=== PATIENT | female | born 1985 | race Caucasian/White ===

== ENCOUNTER 2021-10-28 03:39 | Emergency (ER) | payer OTHER, SELFPAY ==
--- NOTE | ~2021-10-28 | CT_ITS ---
EXAMINATION: CT HEAD WITHOUT CONTRAST CLINICAL INFORMATION: Possible new onset seizure COMPARISON: None TECHNIQUE: Contiguous axial imaging was performed from the skull base to vertex without intravenous administration of contrast. This CT examination was performed using dose optimization techniques as appropriate, variously including the following: *Automated exposure control *Adjustment of mA and/or kV according to patient size (this includes techniques or standardized protocols for targeted exams where dose is matched to indication/reason for exam; i.e. extremities or head) *Use of iterative reconstruction technique DLP: 703 mGy-cm FINDINGS: There is no evidence of acute intracranial hemorrhage or territorial infarction. No abnormal mass effect or midline shift is seen. Flores to white matter differentiation is well preserved. No extra-axial fluid collections are identified. The ventricles are normal in size. There is no abnormal attenuation within the brain parenchyma. The osseous structures and soft tissues are normal. There is a sinus disease in the bilateral maxillary maxillary and ethmoid sinuses sinuses. There is minimal soft tissue opacification in the inferior frontal sinuses/frontoethmoidal recess regions. There is some soft tissue opacification of the left inferior mastoid air cells. CT/CT head/brain wo con IMPRESSION: No acute intracranial pathology. Sinus disease. Minimal soft tissue opacification of the left inferior mastoid air cells.
--- NOTE | ~2021-10-28 | CT_ITS ---
EXAMINATION: CT ANGIOGRAM OF THE CHEST WITH AND WITHOUT CONTRAST (CT PULMONARY ANGIOGRAM FOR PE) CLINICAL INFORMATION: Reason for Exam multiple syncopal episodes COMPARISON: None TECHNIQUE: Prior to contrast administration, noncontrast localization images were obtained. Subsequently, multidetector volumetric imaging was performed from the thoracic inlet to below the diaphragms following the administration of 65 mL Omnipaque 350 intravenous contrast. No contrast reaction reported Sagittal, coronal, and MIP oblique sagittal reformatted images were obtained on the CT workstation, uploaded to PACS, and reviewed. This CT examination was performed using dose optimization techniques as appropriate, variously including the following: *Automated exposure control *Adjustment of mA and/or kV according to patient size (this includes techniques or standardized protocols for targeted exams where dose is matched to indication/reason for exam; i.e. extremities or head) *Use of iterative reconstruction technique Total exam dose-length product 316 mGy-cm FINDINGS: QUALITY OF STUDY/CONTRAST BOLUS: Satisfactory. PULMONARY ARTERIES: No central or segmental pulmonary emboli. THORACIC AORTA: No aneurysm or dissection. LUNG: No focal consolidation, nodules or masses. PLEURA: No pleural effusion or pneumothorax. MEDIASTINUM: Normal heart size. No pericardial effusion. No hilar or mediastinal lymphadenopathy. No evidence of septal bowing or right heart strain. CHEST WALL/AXILLA: No axillary or internal mammary lymphadenopathy. OSSEOUS STRUCTURES: No acute or suspicious osseous abnormality. UPPER ABDOMEN: The spleen may be enlarged. No reflux of contrast into the hepatic veins to suggest elevated right heart pressures. CT/CT angio chest PE protocol IMPRESSION: No evidence of pulmonary embolism. Question splenomegaly. VTE: negative
[2021-10-28 03:51] VITALS: BP 132/56; PULSE 84; RESP 20; TEMP 37.2; O2SAT 96; BMI 39.3
[2021-10-28 04:39] VITALS: PULSE 77; RESP 20; O2SAT 95
--- NOTE | 2021-10-28 05:58 | ECG_ITS ---
Test Reason : SYNCOPE Blood Pressure : / mmHG Vent. Rate : 081 BPM Atrial Rate : 081 BPM P-R Int : 150 ms QRS Dur : 082 ms QT Int : 396 ms P-R-T Axes : 024 067 039 degrees QTc Int : 460 ms Normal sinus rhythm Possible Anterior infarct , age undetermined Abnormal ECG No previous ECGs available Referred By: Cherry Sarmiento Electronically Signed By:ZA SKELTON MD
--- NOTE | 2021-10-28 06:04 | ED_ITS ---
HPI - General Adult General Chief complaint: Weakness Stated complaint: COVID +, passing out, incontinent Time Seen by Provider: 10/28/21 05:57 Source: patient Mode of arrival: ambulatory Limitations: no limitations History of Present Illness HPI narrative: Patient comes emergency room complaining of 5 days of COVID like symptoms. Patient states that 3 days ago she tested herself at home and I was positive. Patient complaining of fatigue, generalized malaise, fever and chills. Patient states that whenever she goes to sleep, sometimes she wakes up wet, she urinates on herself, which is new. Patient denies UTI symptoms. Patient states that her father told her that she passed out, however patient states that she did not pass out, she has went to sleep. Denies chest pain or shortness of breath. . Has been diagnosed with COVID 2 times. Patient states that she has not been immunized. Related Data Allergies Allergy/AdvReac Type Severity Reaction Status Date / Time amoxicillin [AMOXICILLIN] Allergy Unknown HIVES Unverified 01/31/20 15:41 fluoxetine [Prozac] AdvReac Unknown rash - not Verified 11/26/16 00:00 sure Review of Systems Review of Systems: Constitutional : No Weight loss, swelling of fever, chills, fatigue, generalized malaise ENT/Mouth : No Hearing loss, No Ear Pain, No Nasal Congestion, No Sinus Pain, No Hoarseness, No sore throat, No Rhinorrhea, No Swallowing Difficulty Eyes: No Eye Pain, No Swelling, No Redness, No Foreign Body, No Discharge, No Vision Changes Cardiovascular : No Chest Pain, No SOB, No Dyspnea on Exertion, No Orthopnea, No Edema, No Palpitations Respiratory : No Cough, No Sputum, No Wheezing, No Smoke Exposure, No Dyspnea Gastrointestinal : Complaining of nausea vomiting, No Diarrhea, No Consti pation, No abdominal Pain, No Hematochezia, No Melena Genitourinary : no irregular bleeding, No Dysuria, No Urinary Frequency, No Hematuria, No Urinary Incontinence, new onset urinary incontinence when patient goes to sleep/passes out, No Flank Pain, No Urinary Flow Changes, No Hesitancy Musculoskeletal : No joint pain, No Myalgias, No Joint Swelling Skin : No Skin Lesions, No rash Neuro : No Weakness, No Numbness, No Paresthesias, complaining of loss of consciousness versus falling asleep Psych : No Anxiety/Panic, No Depression, No SI/HI/AH/VH, No Social Issues, Heme/Lymph: No Bruising, No Bleeding,No Lymphadenopathy Endocrine : No Polyuria, No Polydipsia, No Temperature Intolerance [facility] Past Medical History Medical History (Updated 10/28/21 @ 07:03 by Cherry Sarmiento MD) COVID-19 Social History Social History Advance Directives: No Physical Exam ED Vital Signs: Vital Signs - 24 hr 10/28/21 03:51 10/28/21 04:39 10/28/21 06:29 Temperature 98.9 F Pulse Rate 84 77 71 Respiratory Rate 20 20 12 Blood Pressure 132/56 L 126/64 Pulse Oximetry 96 95 95 Oxygen Delivery Method Room Air Room Air Room Air BMI result Body Mass Index 39.3 Const Other: Appearance: Alert. Oriented X3. No acute distress. Eyes: Pupils equal, round and reactive to light. ENT: Pharynx normal. Neck: Normal inspection. Neck supple. No lymph nodes noted. No crepitus CVS: Normal heart rate and rhythm. Pulses normal. Normal S1 and S2 Respiratory: No respiratory distress. Breath sounds normal. No Wheezing. No rales Abdomen: Soft and nontender. No rigidity. No distention. Skin: Skin warm and dry. Flushed skin color. Normal skin turgor. Extremities: No lower extremity edema. No Lacerations. No Rash Neuro: Oriented X 3. No motor deficit. No sensory deficit. Moving all e xtremities. No slurred speech. CN 2 through 12 grossly intact Psych: calm, cooperative, normal affect Course Course Course Narrative: D-dimer is elevated, CT for pulmonary embolism is pending. Alcohol level is 154. Patient states that the last time that she drink any alcohol was 2-3 days ago. Initially, patient denied drinking any alcohol at all. Fifty scan for PE pending. Troponin, BNP, EKG within normal limits. Patient's CPK and lactic acid are slightly elevated, it is possible the patient had a seizure? Sign out given to Dr. Veronica Medical Decision Making Lab Data Result diagrams: 10/28/21 06:22 10/28/21 06:22 Labs: Lab Results 10/28/21 10/28/21 10/28/21 Range/Units 06:22 06: 06:22 WBC 7.7 (4.8-10.8) X10*3/uL RBC 4.62 (4.20-5.50) X10*6/uL Hgb 14.0 (12.0-16.0) g/dl Hct 40.8 (37.0-47.0) % MCV 88.3 (80.0-98.0) fL MCH 30.3 (27.0-33.0) pg MCHC 34.3 (31.0-35.0) g/dl RDW 12.9 (11.0-16.0) % Plt Count 227 (160-400) X10*3/uL MPV 9.2 L (9.4-12.3) fL Immature Gran % (Auto) 0.5 H (0.0-0.4) % Neut % (Auto) 66.1 (45-73) % Lymph % (Auto) 27.9 (20-40) % [place] % (Auto) 4.7 (2-11) % Eos % (Auto) 0.7 (0-4) % Baso % (Auto) 0.1 (0-2) % Lymph # (Auto) 2.1 (1.2-4.9) X10*3/uL [place] # (Auto) 0.4 (0.1-1.2) X10*3/uL Eos # (Auto) 0.1 (0.0-0.4) X10*3/uL Baso # (Auto) 0.0 (0.0-0.2) X10*3/uL Abs Immat Gran (auto) 0.04 H (0.00-0.03) X10*3/uL Absolute Neuts (auto) 5.1 (2.0-8.3) x10*3/uL Absolute Nucleated RBC 0.000 (0.0-0.012) X10*3/uL Nucleated RBC % (auto) 0.0 (0.0-0.2) /100WBC D-Dimer High Sensitivty 373 NG/ML Sodium 141 (135-145) mmol/L Potassium 3.8 (3.3-5.1) mmol/L Chloride 107 (96-108) mmol/L Carbon Dioxide 23 (22-29) mmol/L Anion Gap 15 (12-20) BUN 10 (9-16) mg/dL Creatinine 0.60 (0.5-1.4) mg/dL Estim Creat Clear Calc 144.0 Estimated GFR > 60 Random Glucose 79 (60-115) mg/dL Lactic Acid (0.5-2.0) mmol/L Calcium 8.2 L (8.4-10.2) mg/dL Magnesium 1.8 (1.6-2.6) mg/dL Total Bilirubin 0.3 (0.0-1.0) mg/dL Direct Bilirubin 0.2 (0.0-0.5) mg/dL AST 36 H (5-31) U/L ALT 31 (0-31) U/L Alkaline Phosphatase 83 (39-117) U/L Total Creatine Kinase 775 H (26-140) U/L Troponin I High Sens (<3.5-17.0) ng/L B-Natriuretic Peptide (<100) pg/mL Total Protein 6.8 (6.5-8.0) g/dL Albumin 3.9 (3.5-5.0) g/dL Ethyl Alcohol mg/dL COVID-19 (MAGGI) (Negative) COVID-19 Clin Com 10/28/21 10/28/21 10/28/21 Range/Units 06:22 06:22 06:22 WBC (4.8-10.8) X10*3/uL RBC (4.20-5.50) X10*6/uL Hgb (12.0-16.0) g/dl Hct (37.0-47.0) % MCV (80.0-98.0) fL MCH (27.0-33.0) pg MCHC (31.0-35.0) g/dl RDW (11.0-16.0) % Plt Count (160-400) X10*3/uL MPV (9.4-12.3) fL Immature Gran % (Auto) (0.0-0.4) % Neut % (Auto) (45-73) % Lymph % (Auto) (20-40) % [place] % (Auto) (2-11) % Eos % (Auto) (0-4) % Baso % (Auto) (0-2) % Lymph # (Auto) (1.2-4.9) X10*3/uL [place] # (Auto) (0.1-1.2) X10*3/uL Eos # (Auto) (0.0-0.4) X10*3/uL Baso # (Auto) (0.0-0.2) X10*3/uL Abs Immat Gran (auto) (0.00-0.03) X10*3/uL Absolute Neuts (auto) (2.0-8.3) x10*3/uL Absolute Nucleated RBC (0.0-0.012) X10*3/uL Nucleated RBC % (auto) (0.0-0.2) /100WBC D-Dimer High Sensitivty NG/ML Sodium (135-145) mmol/L Potassium (3.3-5.1) mmol/L Chloride (96-108) mmol/L Carbon Dioxide (22-29) mmol/L Anion Gap (12-20) BUN (9-16) mg/dL Creatinine (0.5-1.4) mg/dL Estim Creat Clear Calc Estimated GFR Random Glucose (60-115) mg/dL Lactic Acid 2.7 H* (0.5-2.0) mmol/L Calcium (8.4-10.2) mg/dL Magnesium (1.6-2.6) mg/dL Total Bilirubin (0.0-1.0) mg/dL Direct Bilirubin (0.0-0.5) mg/dL AST (5-31) U/L ALT (0-31) U/L Alkaline Phosphatase (39-117) U/L Total Creatine Kinase (26-140) U/L Troponin I High Sens 4.9 (<3.5-17.0) ng/L B-Natriuretic Peptide 22 (<100) pg/mL Total Protein (6.5-8.0) g/dL Albumin (3.5-5.0) g/dL Ethyl Alcohol mg/dL COVID-19 (MAGGI) Positive A (Negative) COVID-19 Clin Com See Note 10/28/21 Range/Units 06:22 WBC (4.8-10.8) X10*3/uL RBC (4.20-5.50) X10*6/uL Hgb (12.0-16.0) g/dl Hct (37.0-47.0) % MCV (80.0-98.0) fL MCH (27.0-33.0) pg MCHC (31.0-35.0) g/dl RDW (11.0-16.0) % Plt Count (160-400) X10*3/uL MPV (9.4-12.3) fL Immature Gran % (Auto) (0.0-0.4) % Neut % (Auto) (45-73) % Lymph % (Auto) (20-40) % [place] % (Auto) (2-11) % Eos % (Auto) (0-4) % Baso % (Auto) (0-2) % Lymph # (Auto) (1.2-4.9) X10*3/uL [place] # (Auto) (0.1-1.2) X10*3/uL Eos # (Auto) (0.0-0.4) X10*3/uL Baso # (Auto) (0.0-0.2) X10*3/uL Abs Immat Gran (auto) (0.00-0.03) X10*3/uL Absolute Neuts (auto) (2.0-8.3) x10*3/uL Absolute Nucleated RBC (0.0-0.012) X10*3/uL Nucleated RBC % (auto) (0.0-0.2) /100WBC D-Dimer High Sensitivty NG/ML Sodium (135-145) mmol/L Potassium (3.3-5.1) mmol/L Chloride (96-108) mmol/L Carbon Dioxide (22-29) mmol/L Anion Gap (12-20) BUN (9-16) mg/dL Creatinine (0.5-1.4) mg/dL Estim Creat Clear Calc Estimated GFR Random Glucose (60-115) mg/dL Lactic Acid (0.5-2.0) mmol/L Calcium (8.4-10.2) mg/dL Magnesium (1.6-2.6) mg/dL Total Bilirubin (0.0-1.0) mg/dL Direct Bilirubin (0.0-0.5) mg/dL AST (5-31) U/L ALT (0-31) U/L Alkaline Phosphatase (39-117) U/L Total Creatine Kinase (26-140) U/L Troponin I High Sens (<3.5-17.0) ng/L B-Natriuretic Peptide (<100) pg/mL Total Protein (6.5-8.0) g/dL Albumin (3.5-5.0) g/dL Ethyl Alcohol 154 mg/dL COVID-19 (MAGGI) (Negative) COVID-19 Clin Com Discharge Plan Discharge Clinical Impression: Syncope Patient Disposition: Still a Patient
[2021-10-28 06:29] VITALS: BP 126/64; PULSE 71; RESP 12; O2SAT 95
[2021-10-28 06:30] LABS: MANUAL DIFF FLAG NO
[2021-10-28 06:36] LABS: Basophils Percent Auto 0.1 % (0-2); Eosinophils Absolute Auto 0.1 X10*3/uL (0.0-0.4); Eosinophils Percent Auto 0.7 % (0-4); Hematocrit 40.8 % (37.0-47.0); Imm Gran Abs Auto 0.04 X10*3/uL (0.00-0.03); Imm Gran Pct Auto 0.5 % (0.0-0.4); Lymphocytes Absolute Auto 2.1 X10*3/uL (1.2-4.9); Lymphocytes Percent Auto 27.9 % (20-40); Mean Corpuscular HGB Conc 34.3 g/dl (31.0-35.0); Mean Corpuscular Hemoglobin 30.3 pg (27.0-33.0); Mean Corpuscular Volume 88.3 fL (80.0-98.0); Mean Platelet Volume 9.2 fL (9.4-12.3); Monocytes Absolute Auto 0.4 X10*3/uL (0.1-1.2); Monocytes Percent Auto 4.7 % (2-11); Neutrophils Absolute Auto 5.1 x10*3/uL (2.0-8.3); Neutrophils Percent Auto 66.1 % (45-73); Platelet Count 227 X10*3/uL (160-400); Red Blood Count 4.62 X10*6/uL (4.20-5.50); Red Cell Distribution Width 12.9 % (11.0-16.0); White Blood Count 7.7 X10*3/uL (4.8-10.8)
[2021-10-28 06:40] LABS: D Dimer High Sensitivity 373 NG/ML
[2021-10-28 06:42] LABS: COVID-19 Test Positive (Negative)
[2021-10-28 06:46] LABS: Lactic Acid 2.7 mmol/L (0.5-2.0)
[2021-10-28 06:50] LABS: Ethanol 154 mg/dL
[2021-10-28 06:51] LABS: B Type Natriuretic Peptide 22 pg/mL (<100); Troponin-I High Sensitivity 4.9 ng/L (<3.5-17.0)
[2021-10-28 06:53] LABS: Alanine Aminotransferase 31 U/L (0-31); Albumin Level 3.9 g/dL (3.5-5.0); Alkaline Phosphatase 83 U/L (39-117); Anion Gap 15 (12-20); Aspartate Amino Transferase 36 U/L (5-31); Bilirubin Direct 0.2 mg/dL (0.0-0.5); Bilirubin Total 0.3 mg/dL (0.0-1.0); Blood Urea Nitrogen 10 mg/dL (9-16); Calcium 8.2 mg/dL (8.4-10.2); Carbon Dioxide 23 mmol/L (22-29); Chloride 107 mmol/L (96-108); Estimated Glomerular Filt Rate > 60; Glucose Random 79 mg/dL (60-115); Magnesium 1.8 mg/dL (1.6-2.6); Potassium 3.8 mmol/L (3.3-5.1); Sodium 141 mmol/L (135-145); Total Protein 6.8 g/dL (6.5-8.0)
[2021-10-28 06:53] LABS: Appearance Urine CLEAR; Color Urine YELLOW; Glucose Urine UA NEG (NEG); Leukocyte Esterase Urine NEG (NEG); Nitrite Urine NEG (NEG); Urine Blood NEG (NEG); Urine Ketones NEG (NEG); Urine Protein NEG (NEG-TRACE)
[2021-10-28 07:08] LABS: Amphetamine Screen Urine Not Detected (Not Detect); Barbiturates, Urine Not Detected (Not Detect); Benzodiazepines Screen Urine Not Detected (Not Detect); Cannabinoid Screen Urine POSITIVE (Not Detect); Cocaine Screen Urine Not Detected (Not Detect); Fentanyl, urine Not Detected (Not Detect); Opiate Screen Urine Not Detected (Not Detect); Phencyclidine Screen Urine Not Detected (Not Detect)
[2021-10-28 07:40] VITALS: BP 122/74; PULSE 86; RESP 22; TEMP 37.2; O2SAT 98
[2021-10-28] MEDS: ondansetron HCL 4 MG/2 ML VIAL IVPUSH (07:42)
[2021-10-28] MEDS: 0.9 % Sodium Chloride 1,000 ML 999 ML IVCONT (07:42)
[2021-10-28 07:56] LABS: UPreg QC Valid YES; Urine Pregnancy NEGATIVE (NEGATIVE)
[2021-10-28 08:21] VITALS: BP 129/65; PULSE 83; RESP 22; TEMP 37.2
[2021-10-28 08:29] LABS: Reflex Lactate? Lactic Acid Added
[2021-10-28] MEDS: iohexoL 350 MG/ML 100 ML INFUS..BTL IV (09:12)
[2021-10-28 09:39] LABS: ~Lactic Acid-LAB USE ONLY 2.8 mmol/L (0.5-2.0)
[2021-10-28 11:12] LABS: Reflex Lactate? 2 Y
== END 2021-10-28 10:38 | disposition home or self-care (01) ==
PROVIDERS: Emergency Medicine; Emergency Provider Emergency Medicine
DX: R55 Syncope and collapse (principal); R79.1 Abnormal coagulation profile; R74.8 Abnormal levels of other serum enzymes; Z20.822 Contact with and (suspected) exposure to COVID-19
CPT/HCPCS: 36415; 70450; 71275; 80048; 80076; 80307; 81003; 81025; 82077; 82550; 83605; 83735; 83880; 84484; 85025; 85379; 87635; 93005; 96361; 96374; 99284; J2405; Q9967

== ENCOUNTER 2021-11-12 06:27 | Emergency (ER) | payer OTHER, SELFPAY ==
[2021-11-12 06:48] VITALS: BP 146/74; PULSE 115; RESP 16; TEMP 36.6; BMI 47.8
--- NOTE | 2021-11-12 06:56 | ED_ITS ---
HPI - Alcohol General Chief Complaint: General Medical Stated Complaint: ?Seeking detox Time Seen by Provider: 11/12/21 06:55 Source: patient Mode of arrival: ambulatory Limitations: no limitations History of Present Illness MD complaint: alcohol dependence (reports binge drinking episodes) Last drink: Days (ago) Chronic alcohol use: Yes Previous visits for alcohol intoxication: Yes Recent trauma: No Associated symptoms: denies other symptoms Treatments prior to arrival: none Related Data Previous Rx's Medication Instructions Recorded doxycycline hyclate 100 mg capsule 100 mg PO BID 7 days #14 caps 10/28/21 ondansetron 4 mg disintegrating 4 mg PO Q8H PRN nausea and 10/28/21 tablet vomiting #20 tabs Allergies Allergy/AdvReac Type Severity Reaction Status Date / Time amoxicillin [AMOXICILLIN] Allergy Unknown HIVES Unverified 01/31/20 15:41 fluoxetine [Prozac] AdvReac Unknown rash - not Verified 11/26/16 00:00 sure Review of Systems Review of Systems: Constitutional : No Fever, No Chills ENT/Mouth : No Ear Pain, No Nasal Congestion, No sore throat Eyes: No Eye Pain, No Swelling, No Redness Cardiovascular : No Chest Pain, No SOB Respiratory : No Cough, No Sputum, No Dyspnea Gastrointestinal : No Nausea, No Vomiting, No Diarrhea, No Hematochezia, No Melena Genitourinary : No Dysuria, No Urinary Frequency, No Hematuria Musculoskeletal : No Myalgias Skin : No Skin Lesions, No rash Neuro : No Weakness, No Numbness, No Paresthesias, No Dizziness, No Headache Psych : positive Anxiety, no Depression, no SI/HI Heme/Lymph: No Lymphadenopathy Endocrine : No Polyuria, No Polydipsia All other systems reviewed and are negative [facility] Past Medical History Attestation statement: The following information was validated with the patient. Medical History Alcohol abuse COVID-19 Social History Social History (Updated 11/12/21 @ 07:24 by Trish Veronica DO) Alcohol intake: current Patient Tobacco Use Status: Tobacco use Unknown Advance Directives: No Physical Exam ED Vital Signs: Vital Signs - 24 hr 11/12/21 06:48 Temperature 98 F Pulse Rate 115 H Respiratory Rate 16 Blood Pressure 146/74 H BMI result Body Mass Index 47.8 Appearance: Alert. Oriented X3. No acute distress. Anxious Eyes: Pupils equal, round and reactive to light. ENT: Pharynx normal. Neck: Normal inspection. Neck supple. CVS: Normal heart rate and rhythm. Pulses normal. Respiratory: No respiratory distress. Breath sounds normal. Abdomen: Soft and nontender. Skin: Skin warm and dry. Normal skin color. Normal skin turgor. Extremities: No lower extremity edema. No calf ttp Neuro: Oriented X 3. No motor deficit. No sensory deficit. Course Course Course Narrative: patient to be discharged to addicion medicine clinic now per Aracely PARADA MDM - Alcohol MDM Narrative Medical decision making narrative: 36 yo female with hx of ETOH abuse here with request to see someone help her get on medications so she can stop drinking. Will obtain labs and offer addiction medicine consult. She denies SI and cannot go to rehab at this time. Dispo per results and workup along with consult findings. Lab Data Result diagrams: 11/12/21 07:12 11/12/21 07:12 Labs: Lab Results 11/12/21 11/12/21 11/12/21 Range/Units 07:12 07:12 07:12 WBC 5.7 (4.8-10.8) X10*3/uL RBC 4.59 (4.20-5.50) X10*6/uL Hgb 14.0 (12.0-16.0) g/dl Hct 41.2 (37.0-47.0) % MCV 89.8 (80.0-98.0) fL MCH 30.5 (27.0-33.0) pg MCHC 34.0 (31.0-35.0) g/dl RDW 12.8 (11.0-16.0) % Plt Count 293 D (160-400) X10*3/uL MPV 9.4 (9.4-12.3) fL Immature Gran % (Auto) 0.4 (0.0-0.4) % Neut % (Auto) 71.4 (45-73) % Lymph % (Auto) 20.9 (20-40) % [place] % (Auto) 6.7 (2-11) % Eos % (Auto) 0.4 (0-4) % Baso % (Auto) 0.2 (0-2) % Lymph # (Auto) 1.2 (1.2-4.9) X10*3/uL [place] # (Auto) 0.4 (0.1-1.2) X10*3/uL Eos # (Auto) 0.0 (0.0-0.4) X10*3/uL Baso # (Auto) 0.0 (0.0-0.2) X10*3/uL Abs Immat Gran (auto) 0.02 (0.00-0.03) X10*3/uL Absolute Neuts (auto) 4.0 (2.0-8.3) x10*3/uL Absolute Nucleated RBC 0.000 (0.0-0.012) X10*3/uL Nucleated RBC % (auto) 0.0 (0.0-0.2) /100WBC Sodium 142 (135-145) mmol/L Potassium 4.4 (3.3-5.1) mmol/L Chloride 109 H (96-108) mmol/L Carbon Dioxide 27 (22-29) mmol/L Anion Gap 10 L (12-20) BUN 8 L (9-16) mg/dL Creatinine 0.65 (0.5-1.4) mg/dL Estim Creat Clear Calc 154.8 Estimated GFR > 60 Random Glucose 121 H (60-115) mg/dL Calcium 8.9 D (8.4-10.2) mg/dL Total Bilirubin 0.3 (0.0-1.0) mg/dL Direct Bilirubin < 0.2 (0.0-0.5) mg/dL AST 15 D (5-31) U/L ALT 24 (0-31) U/L Alkaline Phosphatase 79 (39-117) U/L Total Protein 7.3 (6.5-8.0) g/dL Albumin 4.5 (3.5-5.0) g/dL Beta HCG, Quant < 2 mIU/mL Ethyl Alcohol 47 mg/dL COVID-19 (MAGGI) Negative (Negative) COVID-19 Clin Com See Note Discharge Plan Discharge Clinical Impression: Alcohol abuse Patient Disposition: Home, Self-Care Instructions: Abuse of Alcohol (ED) Additional Instructions: return to ED for any worsening symptoms or concerns please go to the clinic now they are waiting for you Prescriptions: No Action doxycycline hyclate 100 mg capsule 100 mg PO BID 7 Days Qty: 14 0RF ondansetron 4 mg tablet,disintegrating 4 mg PO Q8H PRN (Reason: nausea and vomiting) Qty: 20 0RF
[2021-11-12 07:16] LABS: MANUAL DIFF FLAG NO
[2021-11-12 07:21] LABS: Basophils Percent Auto 0.2 % (0-2); Eosinophils Percent Auto 0.4 % (0-4); Hematocrit 41.2 % (37.0-47.0); Imm Gran Abs Auto 0.02 X10*3/uL (0.00-0.03); Imm Gran Pct Auto 0.4 % (0.0-0.4); Lymphocytes Absolute Auto 1.2 X10*3/uL (1.2-4.9); Lymphocytes Percent Auto 20.9 % (20-40); Mean Corpuscular Hemoglobin 30.5 pg (27.0-33.0); Mean Corpuscular Volume 89.8 fL (80.0-98.0); Mean Platelet Volume 9.4 fL (9.4-12.3); Monocytes Absolute Auto 0.4 X10*3/uL (0.1-1.2); Monocytes Percent Auto 6.7 % (2-11); Neutrophils Percent Auto 71.4 % (45-73); Platelet Count 293 X10*3/uL (160-400); Red Blood Count 4.59 X10*6/uL (4.20-5.50); Red Cell Distribution Width 12.8 % (11.0-16.0); White Blood Count 5.7 X10*3/uL (4.8-10.8)
[2021-11-12 07:39] LABS: COVID-19 Test Negative (Negative); IDNOW Serial# 16C4AD1C
[2021-11-12 07:40] LABS: Alanine Aminotransferase 24 U/L (0-31); Albumin Level 4.5 g/dL (3.5-5.0); Alkaline Phosphatase 79 U/L (39-117); Anion Gap 10 (12-20); Aspartate Amino Transferase 15 U/L (5-31); Bilirubin Direct < 0.2 mg/dL (0.0-0.5); Bilirubin Total 0.3 mg/dL (0.0-1.0); Blood Urea Nitrogen 8 mg/dL (9-16); Calcium 8.9 mg/dL (8.4-10.2); Carbon Dioxide 27 mmol/L (22-29); Chloride 109 mmol/L (96-108); Creatinine Clr Calc Pharmacy 154.8; Estimated Glomerular Filt Rate > 60; Ethanol 47 mg/dL; Glucose Random 121 mg/dL (60-115); Potassium 4.4 mmol/L (3.3-5.1); Sodium 142 mmol/L (135-145); Total Protein 7.3 g/dL (6.5-8.0)
[2021-11-12 07:46] LABS: HCG Quantitative < 2 mIU/mL
[2021-11-12 13:32] LABS: Fentanyl, urine Not Detected (Not Detect)
[2021-11-12 13:34] LABS: Amphetamine Screen Urine Not Detected (Not Detect); Barbiturates, Urine Not Detected (Not Detect); Cannabinoid Screen Urine POSITIVE (Not Detect); Cocaine Screen Urine Not Detected (Not Detect); Opiate Screen Urine Not Detected (Not Detect); Phencyclidine Screen Urine Not Detected (Not Detect)
--- NOTE | 2021-11-12 14:35 | MHC.RECOVRN ---
Late entry: 829-Met with pt in ED4 after pt requested discussion regarding medications for AUD, specifically Antabuse. Pt reports alcohol use, 2 bottles of wine once every week, last use last night. Prior to that, pt reports last drink was 11/02. Pt states I'm trying to go longer in between but I can't make it past 2 weeks. Pt denies past tx for AUD. Denies withdrawal symptoms when not drinking. Pt tearful, expressing symptoms of depression which leads to alcohol use. 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 Pt is currently in therapy and is in need of a prescriber. In regards to JANE, pt requests Antabuse due to It's in black and white. My will know if I drink. Pt educated regarding medications for AUD, including Antabuse, naltrexone, and acamprosate. After education, pt more interested in naltrexone. 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 Pt then found out she was (with 3rd of 4 children) and was admitted to [facility]. Pt has not used opiates nor had cravings since that time. Pt reports marijuana use, denies all other substances. Pt educated regarding recovery resources and supports, also provided with written information. Discussed the [facility] and pt would like to establish care with Chica Felton APRN. Discussed with ED provider as well as , pt will dc from ED and t/w will escort pt to [facility] to present as a walk in.
[2021-11-12 16:51] LABS: Benzodiazepines Screen Urine Not Detected (Not Detect)
== END 2021-11-12 08:28 | disposition home or self-care (01) ==
PROVIDERS: Emergency Provider Emergency Medicine
DX: F10.20 Alcohol dependence, uncomplicated (principal); Y90.2 Blood alcohol level of 40-59 mg/100 ml; F12.90 Cannabis use, unspecified, uncomplicated; F41.9 Anxiety disorder, unspecified; Z20.822 Contact with and (suspected) exposure to COVID-19
CPT/HCPCS: 80048; 80076; 80307; 82077; 84702; 85025; 87635; 99202; 99212; 99282; 99283

== ENCOUNTER → 2021-11-19 10:08 | Outpatient (BNVA) | payer OTHER, SELFPAY | PROVIDERS: Visit Provider Nurse Practitioner Psychiatric/Mental Health | DX: F10.20 Alcohol dependence, uncomplicated (principal); Z79.899 Other long term (current) drug therapy | CPT/HCPCS: 99212 ==

== ENCOUNTER → 2021-11-26 14:59 | Outpatient (BNVA) | payer OTHER, SELFPAY | PROVIDERS: PCP Internal Medicine; Visit Provider Nurse Practitioner Psychiatric/Mental Health | DX: F10.20 Alcohol dependence, uncomplicated (principal); Z79.899 Other long term (current) drug therapy | CPT/HCPCS: 80305; 99212 ==

== ENCOUNTER → 2021-12-24 10:15 | Outpatient (BNVA) | payer OTHER, SELFPAY | PROVIDERS: Visit Provider Nurse Practitioner Psychiatric/Mental Health | DX: F10.20 Alcohol dependence, uncomplicated (principal); F39 Unspecified mood [affective] disorder; Z51.81 Encounter for therapeutic drug level monitoring; Z79.899 Other long term (current) drug therapy | CPT/HCPCS: 80305; 81025; 96372; 99212 ==

== ENCOUNTER → 2022-01-06 09:40 | Outpatient (BNVA) | payer OTHER, SELFPAY | PROVIDERS: PCP Internal Medicine; Visit Provider Nurse Practitioner Psychiatric/Mental Health | DX: Z51.81 Encounter for therapeutic drug level monitoring (principal); F10.20 Alcohol dependence, uncomplicated; F39 Unspecified mood [affective] disorder | CPT/HCPCS: 80305; 99212 ==

== ENCOUNTER → 2022-01-21 10:09 | Outpatient (BNVA) | payer OTHER, SELFPAY | PROVIDERS: PCP Internal Medicine; Visit Provider Nurse Practitioner Psychiatric/Mental Health | DX: F10.20 Alcohol dependence, uncomplicated (principal); F39 Unspecified mood [affective] disorder; Z51.81 Encounter for therapeutic drug level monitoring; Z79.899 Other long term (current) drug therapy | CPT/HCPCS: 80305; 81025; 96372; 99212; J2315 ==

== ENCOUNTER → 2022-02-04 10:04 | Outpatient (BNVA) | payer OTHER, SELFPAY | PROVIDERS: PCP Internal Medicine; Visit Provider Nurse Practitioner Psychiatric/Mental Health | DX: Z51.81 Encounter for therapeutic drug level monitoring (principal); F10.20 Alcohol dependence, uncomplicated; F39 Unspecified mood [affective] disorder | CPT/HCPCS: 80305; 99212 ==

== ENCOUNTER → 2022-02-18 10:01 | Outpatient (BNVA) | payer OTHER, SELFPAY | PROVIDERS: PCP Internal Medicine; Visit Provider Nurse Practitioner Psychiatric/Mental Health | DX: F10.20 Alcohol dependence, uncomplicated (principal); F39 Unspecified mood [affective] disorder; Z79.899 Other long term (current) drug therapy; Z32.02 Encounter for pregnancy test, result negative | CPT/HCPCS: 80305; 81025; 96372; 99212 ==

== ENCOUNTER → 2022-03-29 10:33 | Outpatient (BNVA) | payer OTHER, SELFPAY | PROVIDERS: PCP Internal Medicine; Visit Provider Nurse Practitioner Psychiatric/Mental Health | DX: F10.20 Alcohol dependence, uncomplicated (principal) | CPT/HCPCS: 80305; 81025; 96372; 99212 ==

== ENCOUNTER → 2022-05-21 11:46 | Outpatient (BNVA) | payer OTHER, SELFPAY | PROVIDERS: Visit Provider Nurse Practitioner Psychiatric/Mental Health | DX: F10.20 Alcohol dependence, uncomplicated (principal) | CPT/HCPCS: 99212 ==

== ENCOUNTER → 2022-05-25 09:04 | Outpatient (BNVA) | payer OTHER, SELFPAY | PROVIDERS: PCP Internal Medicine; Visit Provider Nurse Practitioner Psychiatric/Mental Health | DX: F10.20 Alcohol dependence, uncomplicated (principal) | CPT/HCPCS: 99212 ==

== ENCOUNTER → 2022-06-02 09:37 | Outpatient (BNVA) | payer OTHER, SELFPAY | PROVIDERS: PCP Internal Medicine; Visit Provider Nurse Practitioner Psychiatric/Mental Health | DX: F10.20 Alcohol dependence, uncomplicated (principal) | CPT/HCPCS: 99212 ==

== ENCOUNTER → 2022-06-21 10:06 | Outpatient (BNVA) | payer OTHER, SELFPAY | PROVIDERS: PCP Internal Medicine; Visit Provider Nurse Practitioner Psychiatric/Mental Health | DX: F10.20 Alcohol dependence, uncomplicated (principal); F39 Unspecified mood [affective] disorder; Z79.899 Other long term (current) drug therapy | CPT/HCPCS: 80305; 99212 ==

== ENCOUNTER → 2022-07-29 10:59 | Outpatient (BNVA) | payer OTHER, SELFPAY | PROVIDERS: PCP Internal Medicine; Visit Provider Nurse Practitioner Psychiatric/Mental Health | DX: F10.20 Alcohol dependence, uncomplicated (principal); F39 Unspecified mood [affective] disorder | CPT/HCPCS: 80305; 81025; 96372; 99212 ==

== ENCOUNTER → 2022-08-27 10:09 | Outpatient (BNVA) | payer OTHER, SELFPAY | PROVIDERS: PCP Internal Medicine | DX: Z32.01 Encounter for pregnancy test, result positive (principal); F10.20 Alcohol dependence, uncomplicated; Z23 Encounter for immunization; Z51.81 Encounter for therapeutic drug level monitoring; Z79.899 Other long term (current) drug therapy; Z3A.00 Weeks of gestation of pregnancy not specified | CPT/HCPCS: 80305; 81025; 96372 ==

== ENCOUNTER → 2022-09-27 10:11 | Outpatient (BNVA) | payer OTHER, SELFPAY | PROVIDERS: PCP Internal Medicine; Visit Provider Nurse Practitioner Psychiatric/Mental Health | DX: Z51.81 Encounter for therapeutic drug level monitoring (principal); F10.20 Alcohol dependence, uncomplicated; Z32.02 Encounter for pregnancy test, result negative; Z79.899 Other long term (current) drug therapy | CPT/HCPCS: 80305; 81025; 96372; 99212 ==

== ENCOUNTER 2023-05-03 08:58 | Outpatient (AMB) | payer OTHER, SELFPAY ==
--- NOTE | 2023-05-03 10:09 | AM.OFFWIN_ITS ---
Intake Vital Signs 05/03/23 10:12 Height 5 ft 2 in Weight 246 lb 2 oz BMI 45.0 BP 122/70 Blood Pressure Location Lt brachial Position Sitting Pulse 104 H Pulse Source Pulse Oximeter Temp 97.4 F Temp Source Temporal Artery Scan Pulse Oximetry (%) 98 Oxygen Delivery Method Room Air Intake Visit Reasons: SET UP [employer]/sore throat and cough/[phone] Intake Note: Pt is here c/o sore throat and a bad cough for two weeks. Patient Tobacco Use Status: Tobacco use Unknown Allergies amoxicillin [AMOXICILLIN] Allergy (Unknown, Unverified 05/03/23 10:11) HIVES cephalexin [From Keflex] Allergy (Verified 05/03/23 10:11) Unknown risperidone [From Risperdal] Allergy (Verified 05/03/23 10:11) Unknown fluoxetine [Prozac] Adverse Reaction (Unknown, Verified 05/03/23 10:11) rash - not sure Do you need a note to return to daycare/school/sports/work: No HPI HPI Comments History of Present Illness Details This is a 38-year-old female with a past medical history of chronic bronchitis presenting from home for evaluation of a cough that she has had for the past 2 weeks and sore throat x1 day.. Patient is also reporting discomfort in her left ear. She denies having any fevers, chills, chest pain, shortness of breath or hemoptysis. Patient states all 4 of her children have been sick and they have had a single COVID exposure in the past 1 week. [facility] Medical History Alcohol abuse COVID-19 Social History (Updated 11/12/21 @ 07:24 by Adelina Veronica DO) Alcohol intake: current Patient Tobacco Use Status: Tobacco use Unknown Review of Systems Const All systems reviewed & are unremarkable except as noted in HPI and below Reports no additional complaints Eyes Reports no additional complaints ENT Reports as per HPI Card Reports as per HPI and Denies dyspnea Resp Reports as per HPI, Reports cough, Denies hemoptysis, Denies dyspnea and Denies wheezing Musc Reports no additional complaints Endo Reports no additional complaints Aller/Immun Denies wheezing Physical Exam Vital Signs: Last Vital Signs Temp 97.4 F 05/03/23 10:12 Pulse 104 H 05/03/23 10:12 BP 122/70 05/03/23 10:12 Pulse Ox 98 05/03/23 10:12 Oxygen Delivery Method Room Air 05/03/23 10:12 BMI result Body Mass Index 45.0 Const General: cooperative, healthy appearing, comfortable and no acute distress; No well developed Nutritional Appearance: well nourished Orientation/consciousness: patient oriented x3 Limitations: no limitations HEENT Head: Yes normal to inspection and Yes normocephalic Ears: hearing grossly normal bilaterally, external ears normal, right TM abnormal (erythematous, bulging), TM normal on the left and EAC's normal General nose exam: Normal external nose present Face and sinus: Yes normal facial exam and No sinus tenderness Mouth: Normal oral and palatal mucosa present and oropharynx normal Teeth and gingiva: dentition normal Throat: Yes posterior oropharynx normal (There is no erythema, edema or exudates of the posterior oropharynx) Eyes General: appearance normal, both eyes and all related structures Alignment and Position: alignment normal Periorbital: periorbital findings normal Eyelids: Yes eyelids normal Conjunctivae: conjunctivae normal Pupils: Equal, round and reactive pupils present EOM: EOMs intact bilaterally Neck Lymphatic: no lymphadenopathy noted Resp Effort & Inspection: normal respiratory effort, able to speak in complete sentences, no audible wheezes, Actively coughing and no respiratory distress Auscultation: clear to auscultation bilaterally Cardio Rate: regular rate Rhythm: regular rhythm Skin General skin exam: no rashes or lesions noted Neuro General: patient oriented x3 Cranial nerves: Yes Equal, round and reactive pupils present Psych Appearance: grossly normal Mental Status: mental status grossly normal Insight: Good insight present (Psych) Judgement: Good judgement present (Psych) Assessment & Plan Assessment & Plan (1) Otitis media of right ear: Code(s): H66.91 - Otitis media, unspecified, right ear Plan: Doxycycline BID x 7 days; ibuprofen or Tylenol as needed for discomfort. Plan SARS panel ordered and pending. Orders: Orders SARS-CoV2/FLU/RSV Today J06.9 - Acute upper respiratory infection, unspecified Medications: New doxycycline hyclate 100 mg PO BID 14 caps 0RF Coding Level of Care Code Est Pt Level 3 (36042) Diagnoses Otitis media of right ear H66.91 Time Spent (min) 25
[2023-05-03 10:12] VITALS: BP 122/70; PULSE 104; TEMP 36.3; O2SAT 98; BMI 45.0
== END 2023-05-03 10:50 | disposition home or self-care (01) ==
PROVIDERS: PCP Internal Medicine; Visit Provider Physician Assistant
DX: H66.91 Otitis media, unspecified, right ear (principal)
CPT/HCPCS: 99213

== ENCOUNTER 2023-05-03 13:54 | Outpatient (REF) | payer OTHER, SELFPAY ==
[2023-05-03 15:06] LABS: Influenza A PCR NEGATIVE (Negative); Influenza B PCR NEGATIVE (Negative); Resp Syncy Virus RNA Qual PCR NEGATIVE (Negative); SARS COV2 PCR INHOUSE NEGATIVE (Negative)
== END 2023-05-03 13:55 | disposition home or self-care (01) ==
LOC: HO.LNP 13:54
PROVIDERS: Visit Provider Physician Assistant
DX: J06.9 Acute upper respiratory infection, unspecified (principal); Z11.52 Encounter for screening for COVID-19
CPT/HCPCS: 0241U

== ENCOUNTER 2023-06-07 12:22 | Outpatient (AMB) | payer OTHER, SELFPAY ==
[2023-06-07 12:28] VITALS: BP 128/78; PULSE 91; TEMP 36.6; O2SAT 99
--- NOTE | 2023-06-07 12:28 | AM.OFFWIN_ITS ---
Intake Vital Signs 06/07/23 12:28 Height 5 ft 2 in BP 128/78 Blood Pressure Location Lt brachial Position Sitting Pulse 91 Pulse Source Pulse Oximeter Temp 97.8 F Temp Source Oral Pulse Oximetry (%) 99 Oxygen Delivery Method Room Air Intake Visit Reasons: EP day 2 103 fever body aches masked in lobby Intake Note: pt is here for c/o body aches, fever of 103 for 2 days Patient Tobacco Use Status: Never used Tobacco Allergies amoxicillin [AMOXICILLIN] Allergy (Unknown, Verified 06/07/23 12:28) HIVES cephalexin [From Keflex] Allergy (Verified 06/07/23 12:28) Unknown risperidone [From Risperdal] Allergy (Verified 06/07/23 12:28) Unknown fluoxetine [Prozac] Adverse Reaction (Unknown, Verified 06/07/23 12:28) rash - not sure Do you need a note to return to daycare/school/sports/work: Yes HPI HPI Comments History of Present Illness Details This is a 38-year-old female with a past medical history of chronic bronchitis presenting for evaluation of fevers and body aches that she has had since Tuesday which has been accompanied by nausea and diarrhea. Patient states she has had up to 3 episodes of diarrhea a day. Patient states that she went to the [place] [facility] [place] with 2 of her children this morning and 1 was diagnosed with influenza and other was diagnosed with COVID-19. At this time the patient states that she feels hot with body aches. She has been taking Tylenol and ibuprofen for management of her fevers which have been as high as 103?. Patient denies having any lightheadedness, headaches, ear pain, sore throat, difficulty swallowing, chest pain, dysuria or abdominal pain. COUNT INCLUDES [facility] Medical History Alcohol abuse COVID-19 Social History (Updated 11/12/21 @ 07:24 by Adelina Veroncia DO) Alcohol intake: current Patient Tobacco Use Status: Never used Tobacco Review of Systems Const All systems reviewed & are unremarkable except as noted in HPI and below Reports no additional complaints, Denies chills, Reports difficulty sleeping (secondary to cough), Reports fatigue, Reports fever(s) and Reports malaise Eyes Reports no additional complaints ENT Reports no additional complaints Card Reports no additional complaints GI Denies constipation, Reports diarrhea, Reports nausea and Denies vomiting Reports no additional complaints, Denies dysuria, Denies urinary incontinence, Denies urinary hesitancy and Denies urinary urgency Musc Reports no additional complaints Psych Reports no additional complaints Endo Reports fatigue Physical Exam Patient is afebrile Const General: cooperative, well developed, alert, awake, ill appearing (diaphoretic), tired appearing and well groomed Nutritional Appearance: average body habitus Orientation/consciousness: patient oriented x3 Limitations: no limitations HEENT Head: Yes normal to inspection and Yes normocephalic Ears: hearing grossly normal bilaterally, external ears normal, TM's normal bilaterally and EAC's normal General nose exam: Normal external nose present Face and sinus: Yes normal facial exam and Yes sinuses nontender Mouth: Normal oral and palatal mucosa present Throat: Yes postnasal drainage Eyes Eyelids: Yes eyelids normal Conjunctivae: conjunctivae normal Sclerae: sclerae normal Corneas: corneas normal Pupils: Equal, round and reactive pupils present EOM: EOMs intact bilaterally Neck Lymphatic: no lymphadenopathy noted Resp Effort & Inspection: normal respiratory effort, normal respiratory pattern, no audible wheezes, Actively coughing, no respiratory distress and not tachypneic Auscultation: clear to auscultation bilaterally Cardio Rate: regular rate Rhythm: regular rhythm GI Inspection: Yes normal to inspection Palpation (GI): Soft to palpation, nontender, no guarding, No hepatosplenomegaly present and No Rebound tenderness present Skin General skin exam: no rashes or lesions noted (Diaphoresis noted across forehead) Neuro General: patient oriented x3 Cranial nerves: Yes Equal, round and reactive pupils present Psych Appearance: grossly normal Mental Status: mental status grossly normal Insight: Good insight present (Psych) Judgement: Good judgement present (Psych) Assessment & Plan Assessment & Plan (1) Cough: Comment: Given this patient's exposure to both COVID-19 and influenza, SARS panel is ordered and pending. Code(s): R05.9 - Cough, unspecified Qualifiers: Cough type: acute Qualified Code(s): R05.1 - Acute cough Plan: Ibuprofen and Tylenol as needed for any fevers that may recur; Zofran as prescribed for nausea so that she may stay well hydrated upon returning home. Orders: Orders SARS-CoV2/FLU/RSV Today R05.9 - Cough, unspecified Medications: New ondansetron 4 mg PO Q8H PRN 12 tabs 0RF nausea and vomiting Coding Level of Care Code Est Pt Level 3 (28144) Diagnoses Acute cough R05.1 Cough type: acute Time Spent (min) 20
== END 2023-06-07 13:55 | disposition home or self-care (01) ==
PROVIDERS: PCP Internal Medicine; Visit Provider Physician Assistant
DX: R05.1 Acute cough (principal)
CPT/HCPCS: 99213

== ENCOUNTER 2023-06-07 13:56 | Outpatient (REF) | payer OTHER, SELFPAY ==
[2023-06-07 17:11] LABS: Influenza A PCR POSITIVE (Negative); Influenza B PCR NEGATIVE (Negative); Resp Syncy Virus RNA Qual PCR NEGATIVE (Negative); SARS COV2 PCR INHOUSE NEGATIVE (Negative)
== END 2023-06-07 13:57 | disposition home or self-care (01) ==
LOC: HO.LAB 13:56
PROVIDERS: Visit Provider Physician Assistant
DX: R05.9 Cough, unspecified (principal)
CPT/HCPCS: 0241U

== ENCOUNTER 2023-06-09 09:37 | Emergency (ER) | payer OTHER, SELFPAY ==
--- NOTE | ~2023-06-09 | CT_ITS ---
CT HEAD WITHOUT IV CONTRAST CT CERVICAL SPINE WITHOUT IV CONTRAST INDICATION: Head strike with neck pain. COMPARISON: Head CT 11/27/2021. TECHNIQUE: Multidetector CT acquisitions of the head and cervical spine were obtained without IV contrast. Multiplanar reformats were acquired and utilized for image interpretation. This CT examination was performed using dose optimization techniques as appropriate, variously including the following: *Automated exposure control *Adjustment of mA and/or kV according to patient size (this includes techniques or standardized protocols for targeted exams where dose is matched to indication/reason for exam; i.e. extremities or head) *Use of iterative reconstruction technique FINDINGS: HEAD: There is no intracranial hemorrhage, hydrocephalus, extra-axial surface collection, midline shift, or other herniation pattern. Flores to white matter differentiation is diffusely maintained without evidence of an evolved acute territorial infarct. The basilar cisterns are preserved. No significant soft tissue abnormality. No acute osseous abnormality. There is moderate mucosal thickening within the left maxillary sinus and there is mild mucosal thickening and small fluid level within the right maxillary sinus. There is moderate mucosal thickening within the ethmoid air cells bilaterally. Mastoid air cells are clear. CERVICAL SPINE: Straightening of the cervical lordosis. The vertebral body heights are maintained. There are no acute fractures and there are no acute subluxations. There is no prevertebral soft tissue swelling. Imaged upper lungs are clear. CT/CT head/brain wo IV con IMPRESSION: - No acute intracranial abnormality. - No acute osseous abnormality within the cervical spine. Straightening of the cervical lordosis.
--- NOTE | ~2023-06-09 | CT_ITS ---
CT HEAD WITHOUT IV CONTRAST CT CERVICAL SPINE WITHOUT IV CONTRAST INDICATION: Head strike with neck pain. COMPARISON: Head CT 11/27/2021. TECHNIQUE: Multidetector CT acquisitions of the head and cervical spine were obtained without IV contrast. Multiplanar reformats were acquired and utilized for image interpretation. This CT examination was performed using dose optimization techniques as appropriate, variously including the following: *Automated exposure control *Adjustment of mA and/or kV according to patient size (this includes techniques or standardized protocols for targeted exams where dose is matched to indication/reason for exam; i.e. extremities or head) *Use of iterative reconstruction technique FINDINGS: HEAD: There is no intracranial hemorrhage, hydrocephalus, extra-axial surface collection, midline shift, or other herniation pattern. Flores to white matter differentiation is diffusely maintained without evidence of an evolved acute territorial infarct. The basilar cisterns are preserved. No significant soft tissue abnormality. No acute osseous abnormality. There is moderate mucosal thickening within the left maxillary sinus and there is mild mucosal thickening and small fluid level within the right maxillary sinus. There is moderate mucosal thickening within the ethmoid air cells bilaterally. Mastoid air cells are clear. CERVICAL SPINE: Straightening of the cervical lordosis. The vertebral body heights are maintained. There are no acute fractures and there are no acute subluxations. There is no prevertebral soft tissue swelling. Imaged upper lungs are clear. CT/CT cervical spine wo IV con IMPRESSION: - No acute intracranial abnormality. - No acute osseous abnormality within the cervical spine. Straightening of the cervical lordosis.
[2023-06-09 09:48] VITALS: BP 147/90; PULSE 95; RESP 18; TEMP 37.1; O2SAT 95; BMI 45.7
--- NOTE | 2023-06-09 11:18 | ED_ITS ---
HPI - General Adult General Chief complaint: Fall Stated complaint: head inj fell on ice Time Seen by Provider: 06/09/23 11:00 Source: patient and family (father) Mode of arrival: ambulatory Limitations: no limitations History of Present Illness HPI narrative: Patient is a 38-year-old female presenting to the emergency department with complaint of headache and neck pain after a slip and fall yesterday. Patient r eports that she slipped on ice, landing on her back and hitting the back of her head. She is unsure if she lost consciousness but feel she did not. Has had headache since which she rates at 8/10. Took Tylenol and ibuprofen with little relief. Reports 3-4 episodes of vomiting this morning. Reports double vision immediately following the slip and fall but denies any double vision, blurred vision or other visual changes at this time. Patient did test positive for influenza on Tuesday. She is not anticoagulated. MD complaint: Head injury Onset (ago): hour(s) Location: head and neck Severity: severe Severity scale (1-10): 8 Quality: aching Pain Consistency: constant Relieving factors: none Exacerbating factors: movement Associated symptoms: nausea/vomiting Treatments prior to arrival: NSAID and other Related Data Previous Rx's Medication Instructions Recorded ondansetron 4 mg disintegrating 4 mg PO Q8H PRN nausea and 06/07/23 tablet vomiting #12 tabs ondansetron 4 mg disintegrating 4 mg PO Q8H PRN nausea and 06/09/23 tablet vomiting #12 tabs Allergies Allergy/AdvReac Type Severity Reaction Status Date / Time amoxicillin [AMOXICILLIN] Allergy Unknown HIVES Verified 06/09/23 09:54 cephalexin [From Keflex] Allergy Unknown Verified 06/09/23 09:54 risperidone [From Risperdal] Allergy Unknown Verified 06/09/23 09:54 fluoxetine [Prozac] AdvReac Unknown rash - not Verified 06/09/23 09:54 sure Review of Systems Review of Systems: As per HPI. Yes all other systems are reviewed and are negative Constitutional: Constitutional: Reports as per HPI [facility] Past Medical History Medical History Alcohol abuse COVID-19 Social History Social History (Updated 11/12/21 @ 07:24 by Adelina Veronica DO) Alcohol intake: current Patient Tobacco Use Status: Never used Tobacco Smoked in Last 30 Days: No Advance Directives: No Physical Exam ED Vital Signs: Vital Signs - 24 hr 06/09/23 09:48 06/09/23 12:00 06/09/23 14:21 Temperature 98.8 F 98.9 F Pulse Rate 95 93 95 Respiratory Rate 18 16 16 Blood Pressure 147/90 H 128/67 139/68 Pulse Oximetry 95 92 94 Oxygen Delivery Method Room Air Room Air Room Air BMI result Body Mass Index 45.7 Vital signs have been reviewed and appear to be correct. Blood pressure elevated. Heart rate normal. Respiratory rate normal. Temperature normal. Oxygen saturation normal. Const General: cooperative, healthy appearing and no acute distress Orientation/consciousness: oriented to person, oriented to place, oriented to time and patient oriented x3 Limitations: no limitations HENMT Head: Yes No palpable skull fracture present, Yes normocephalic, No abrasion, No Duron's sign, No contusion, No hematoma, No laceration, No raccoon eyes and No periorbital ecchymosis Ears: external ears normal, TM's normal bilaterally and EAC's normal General nose exam: Normal external nose present, Normal nasal mucous membranes and turbinates present and Normal septum present Face and sinus: Yes face symmetric Mouth: oropharynx normal and moist mucous membranes Throat: Yes uvula midline Eyes Pupils: Equal, round and reactive pupils present Neck Neck: Yes normal visual inspection and Yes supple Resp Effort & Inspection: normal respiratory effort and able to speak in complete sentences Auscultation: clear to auscultation bilaterally Cardio Rate: regular rate Rhythm: regular rhythm Heart sounds: S1 normal heart sound present and S2 normal heart sound present GI Palpation (GI): Soft to palpation and nontender Auscultation: normoactive bowel sounds General: Yes no CVA tenderness Back/Spine/Pelvis Back: no CVA tenderness Cervical Spine: normal cervical lordosis, cervical ROM normal, cervical muscular tenderness, pain with cervical ROM, No Cervical spine tenderness and No step off deformity Thoracic/Lumbar Spine: thoracic and lumbar spine normal to inspection, thoraco- lumbar ROM normal, straight leg raise negative bilaterally, No thoracic spinal tenderness and No lumbar spinal tenderness Pelvis: no pain with anterior-posterior compression and no pain with lateral compression Sacroiliac joints: bilaterally nontender Skin General skin exam: elasticity normal and turgor normal Neuro General: oriented to person, oriented to place, oriented to time, patient oriented x3, gait normal, tone normal, moves all extremities, Normal light touch and pain sensation, no focal motor deficits, CN's II-XI intact bilaterally and deep tendon reflexes 2+ bilaterally Cranial nerves: Yes Equal, round and reactive pupils present Cognition (Neuro): normal cognition Motor exam (neuro): 5/5 motor strength present throughout, Pronator motor function not present, Normal motor muscle tone present throughout and Motor ab normalities not present Sensory Exam: Normal double simultaneous stimulation for sensation Coordination: [id number] test normal and No Romberg test positive Extrem General: Yes full ROM, Yes no pedal edema and Yes no calf tenderness Psych Mental Status: mental status grossly normal Affect: normal affect Thought process: Normal thought process present NIH Stroke Scale Internal: Initial- Upon Arrival Time: 11:31 Level of Consciousness: Alert Level of Consciousness Questions: Answers both questions correctly Level of Consciousness Commands: Performs both tasks correctly Best Gaze: Normal Visual: No visual loss Facial Palsy: Normal Motor Arm (Right): No drift Motor Arm (Left): No drift Motor Leg (Right): No drift Motor Leg (Left): No drift Limb Ataxia: Absent Sensory: Normal Best Language: No aphasia Dysarthia: Normal Extinction and Inattention: No abnormality Score: 0 Medications Administered Discontinued Medications Generic Name Dose Route Start Last Admin Trade Name Freq PRN Reason Stop Dose Admin Diphenhydramine HCl 25 mg 06/09/23 15:13 06/09/23 15:33 Diphenhydramine Hcl 50 Mg/Ml Vial IVPUSH 06/09/23 15:14 25 mg ONCE ONE Administration Sodium Chloride 1,000 mls @ 999 mls/hr 06/09/23 15:15 06/09/23 15:33 Ns IV 06/09/23 16:15 999 mls/hr .Q1H1M EARLENE Administration Ketorolac Tromethamine 15 mg 06/09/23 15:13 06/09/23 15:34 Ketorolac Tromethamine 15 Mg/Ml Vial IVPUSH 06/09/23 15:14 15 mg ONCE ONE Administration Metoclopramide HCl 10 mg 06/09/23 15:13 06/09/23 15:33 Metoclopramide Hcl 10 Mg/2 Ml Vial IVPUSH 06/09/23 15:14 10 mg ONCE ONE Administration Ondansetron HCl 4 mg 06/09/23 11:26 06/09/23 11:55 Ondansetron Odt 4 Mg Tab.Joanie MORININGU 06/09/23 11:27 4 mg ONCE ONE Administration Oxycodone HCl 5 mg 06/09/23 11:26 06/09/23 11:55 Oxycodone Hcl Immed Release 5 Mg Tablet PO 06/09/23 11:27 5 mg ONCE ONE Administration Medical Decision Making Medical Decision Making [facility] Narrative: Patient is a 38-year-old female presenting to the emergency department with complaint of headache and neck pain after a slip and fall yesterday. On exam patient is awake, A+Ox3, BP elevated, VS otherwise WNL, afebrile, normal neurological exam without focal deficits, physical exam findings as above. Given reported symptoms and physical exam findings, initial differential includes ICH/SAH, skull fracture, cervical vertebral fracture or subluxation, cervical muscle strain, concussion. [place] CT head rule score of 1 for vomiting. Plan: CT head and neck, treat headache and nausea with oxycodone and ondansetron 15:10 CT head and neck unremarkable. My interpretation is in agreement with the radiologist's interpretation. Patient and father updated on results and all qu estions answered. Patient still complaining of severe headache, will treat with IV fluids, toradol, metoclopramide and benadryl. Feel patient's headache is likely exacerbated by her influenza. 16:49 Patient reports significant improvement in headache, states she is comfortable with discharge home. Will prescribe zofran for nausea. Concussion precautions reviewed with patient. Return precautions discussed with patient and father. Patient verbalized understanding of and agreement with plan. Differential Diagnosis Differential Diagnoses: The differential diagnosis associated with the presentation includes As per [facility] Lab Data [facility] Lab Attestation statement: I reviewed the patient's lab results. As per [facility] Labs: Lab Results 06/09/23 Range/Units 12:18 Urine Test NEGATIVE (NEGATIVE) Independent Interpretation I performed an independent interpretation of an: CT Scan Interpretation: No acute findings on head or c-spine CT. Radiology Impression Discussion of test interpretation with radiology: I have reviewed the radiologist's reading. Radiologist Impression: CT/CT head/brain wo IV con IMPRESSION: - No acute intracranial abnormality. - No acute osseous abnormality within the cervical spine. Straightening of the cervical lordosis. External Record Review External record reviewed: Inpatient record, Office record and Outpatient record Prescription Management I considered prescription management with: Other Discharge Plan Discharge Clinical Impression: Closed head injury Patient Disposition: Home, Self-Care Instructions: Concussion (ED), Head Injury (ED), Post Concussion Syndrome (ED) Additional Instructions: You have been evaluated in the emergency department today for head injury. Your CT scan did not show signs of bleed or fractures in your head. We recommend you take 600 mg ibuprofen every 6 hours or Tylenol 650 mg every 6 hours as needed for pain. If needed, you can alternate these medications so that you mayi e 1 medication every 3 hours. For instance, at noon take ibuprofen, then at 3:00 p.m. take Tylenol, then at 6:00 p.m. take ibuprofen. You are being prescribed ondansetron which you can take every 8 hours as needed for nausea. Be sure to drink plenty of fluids and get plenty of rest. Please schedule an appointment with for follow-up with your primary care provider as soon as possible. Return to the emergency department if you experience worsening or uncontrolled pain, vision changes, recurrent vomiting, difficulty with normal activities, abnormal behavior, difficulty walking, numbness, weakness, or any other concerning symptoms. Prescriptions: New ondansetron 4 mg tablet,disintegrating 4 mg PO Q8H PRN (Reason: nausea and vomiting) Qty: 12 0RF No Action ondansetron 4 mg tablet,disintegrating 4 mg PO Q8H PRN (Reason: nausea and vomiting) Qty: 12 0RF
[2023-06-09] MEDS: Ondansetron ODT 4 MG TAB.RAPDIS TRANSLINGU (11:55)
[2023-06-09] MEDS: oxyCODONE HCl Immed Release 5 MG TABLET PO (11:55)
[2023-06-09 12:00] VITALS: BP 128/67; PULSE 93; RESP 16; TEMP 37.2; O2SAT 92
[2023-06-09 12:28] LABS: UPreg QC Valid YES; Urine Pregnancy NEGATIVE (NEGATIVE)
[2023-06-09 14:21] VITALS: BP 139/68; PULSE 95; RESP 16; O2SAT 94
[2023-06-09] MEDS: 0.9 % Sodium Chloride 1,000 ML 999 ML IV (15:33)
[2023-06-09] MEDS: Metoclopramide HCl 10 MG/2 ML VIAL IVPUSH (15:33)
[2023-06-09] MEDS: diphenhydrAMINE HCL 50 MG/ML VIAL 25 MG IVPUSH (15:33)
[2023-06-09] MEDS: Ketorolac Tromethamine 15 MG/ML VIAL IVPUSH (15:34)
[2023-06-09 17:15] VITALS: PULSE 75; RESP 16; TEMP 36.4; O2SAT 96
== END 2023-06-09 17:22 | disposition home or self-care (01) ==
PROVIDERS: Registered Nurse Emergency; Emergency Provider Emergency Medicine
DX: S09.90XA Unspecified injury of head, initial encounter (principal); R51.9 Headache, unspecified; M54.2 Cervicalgia; R11.2 Nausea with vomiting, unspecified; W00.0XXA Fall on same level due to ice and snow, initial encounter; Y93.9 Activity, unspecified; Y92.9 Unspecified place or not applicable; Y99.8 Other external cause status
CPT/HCPCS: 70450; 72125; 81025; 96361; 96374; 96375; 99284; J1200; J1885; J2765

== ENCOUNTER 2023-12-30 13:34 | Outpatient (AMB) | payer OTHER, SELFPAY ==
--- NOTE | 2023-12-30 13:42 | A.OFFVISCC_ITS ---
Vital Signs 12/30/23 14:58 Blood Pressure Location Lt radial Position Sitting Respiration 19 Pulse 89 Pulse Oximetry (%) 98 Intake Visit Reasons: Intake Allergies amoxicillin [AMOXICILLIN] Allergy (Unknown, Verified 06/09/23 09:54) HIVES cephalexin [From Keflex] Allergy (Verified 06/09/23 09:54) Unknown risperidone [From Risperdal] Allergy (Verified 06/09/23 09:54) Unknown fluoxetine [Prozac] Adverse Reaction (Unknown, Verified 06/09/23 09:54) rash - not sure HPI HPI Intake: Details: Patient presents as walk to re-establish care Reports she has been drinking 4-5 days per week drinking at all different times of day denies any withdrawal 7 nips of vodka yesterday no medical history changes dicolfenac for knee no control no changes at home PFSH Medical History Alcohol abuse COVID-19 Social History (Updated 11/12/21 @ 07:24 by Adelina Veronica DO) Alcohol intake: current Patient Tobacco Use Status: Never used Tobacco Review of Systems Const Reports as per HPI Physical Exam Vital Signs: Last Vital Signs Pulse 89 12/30/23 14:58 Resp 19 12/30/23 14:58 Pulse Ox 98 12/30/23 14:58 Const General: cooperative and anxious Nutritional Appearance: overweight Orientation/consciousness: patient oriented x3 Limitations: no limitations Neuro General: patient oriented x3 Psych Appearance: well kempt Speech and movement: Normal speech and movement present Affect: Sad affect present Attitude: cooperative Thought process: Normal thought process present Thought content: Depressive thoughts present Insight: Fair insight present (Psych) Judgement: Fair judgement present (Psych) Results AMB 14 Panel Urine Drug Screen Urine Marijuana (THC) Positive Last Edit by Gwendolyn Grigsby RN on 12/30/23 14:58 Urine Cocaine Negative Last Edit by Gwendolyn Grigsby RN on 12/30/23 14:58 Urine Morphine Negative Last Edit by Gwendolyn Grigsby RN on 12/30/23 14:58 Urine Methamphetamine Negative Last Edit by Gwendolyn Grigsby RN on 12/30/23 14:58 Urine Amphetamine Negative Last Edit by Gwendolyn Grigsby RN on 12/30/23 14:58 Urine Benzodiazepine Negative Last Edit by Gwendolyn Grigsby RN on 12/30/23 14 :58 Urine Barbiturates Negative Last Edit by Gwendolyn Grigsby RN on 12/30/23 14:5 8 Urine Methadone Negative Last Edit by Gwendolyn Grigsby RN on 12/30/23 14:58 Urine Buprenorphine Negative Last Edit by Gwendolyn Grigsby RN on 12/30/23 14: 58 Urine Tricyclic Antidepressant Negative Last Edit by Gwendolyn Grigsby RN on 12/30/23 14:58 Urine MDMA Negative Last Edit by Gwendolyn Grigsby RN on 12/30/23 14:58 Urine Oxycodone Negative Last Edit by Gwendolyn Grigsby RN on 12/30/23 14:58 Urine Phencyclidine Negative Last Edit by Gwendolyn Grigsby RN on 12/30/23 14: 58 Urine Propoxyphene Negative Last Edit by Gwendolyn Grigsby RN on 12/30/23 14:5 8 Results Reviewed Results Reviewed: Laboratory Last Values POC Urine Buprenorphine Negative 12/30/23 14:52 POC Urine Morphine Negative 12/30/23 14:52 POC Urine Oxycodone Negative 12/30/23 14:52 POC Urine Methadone Negative 12/30/23 14:52 POC Urine Propoxyphene Negative 12/30/23 14:52 POC Urine Barbiturates Negative 12/30/23 14:52 POC U Tricyclic Antidpr Negative 12/30/23 14:52 POC Urine PCP Negative 12/30/23 14:52 POC Ur Amphetamines Negative 12/30/23 14:52 POC Ur Methamphetamine Negative 12/30/23 14:52 POC Urine MDMA Negative 12/30/23 14:52 POC Ur Benzodiazepine Negative 12/30/23 14:52 POC Urine Cocaine Negative 12/30/23 14:52 POC Ur Marijuana (THC) Positive 12/30/23 14:52 Assessment & Plan Assessment & Plan (1) Alcohol use disorder, moderate, dependence: Code(s): F10.20 - Alcohol dependence, uncomplicated Category: Medical Plan: * restart naltrexone * gabapentin 100mg TID * zofran PRN * patient very familiar with these medications as she has taken them in the past * voiced interest in starting disulfiram--will address at next visit Orders: Orders AMB 14 Panel Urine Drug Screen 12/30/23 Z51.81 - Encounter for therapeutic drug level monitoring Medications: New naltrexone take 1/2 tab daily for 3 days then increase to one tab daily 50 mg PO DAILY 30 tabs 0RF gabapentin 100 mg PO TID PRN 30 caps 0RF anxiety Refilled ondansetron 4 mg PO Q8H PRN 12 tabs 0RF nausea and vomiting Discontinued ondansetron Discontinued Reason: Duplicate 4 mg PO Q8H PRN 12 tabs 0RF nausea and vomiting
[2023-12-30 14:58] VITALS: PULSE 89; RESP 19; O2SAT 98
== END 2023-12-30 14:00 | disposition home or self-care (01) ==
PROVIDERS: Visit Provider Nurse Practitioner Psychiatric/Mental Health
DX: F10.20 Alcohol dependence, uncomplicated (principal)
CPT/HCPCS: 99214

== ENCOUNTER → 2023-12-30 13:34 | Outpatient (BNVA) | payer OTHER, SELFPAY | PROVIDERS: Visit Provider Nurse Practitioner Psychiatric/Mental Health | DX: F10.20 Alcohol dependence, uncomplicated (principal); Z51.81 Encounter for therapeutic drug level monitoring | CPT/HCPCS: 80305; 99212 ==

== ENCOUNTER 2024-01-06 09:07 | Outpatient (AMB) | payer OTHER, SELFPAY ==
--- NOTE | 2024-01-06 09:12 | A.OFFVISCC_ITS ---
Intake Visit Reasons: MAT Office Allergies amoxicillin [AMOXICILLIN] Allergy (Unknown, Verified 06/09/23 09:54) HIVES cephalexin [From Keflex] Allergy (Verified 06/09/23 09:54) Unknown risperidone [From Risperdal] Allergy (Verified 06/09/23 09:54) Unknown fluoxetine [Prozac] Adverse Reaction (Unknown, Verified 06/09/23 09:54) rash - not sure HPI HPI MAT Office: Details: Patient presents for AUD treatment follow up Feeling more stable since last visit Started gabapentin and naltrexone last week Taking gabapentin once daily in the morning feels it has been helpful -denies side effects would like to start re-start lamotrigine also requesting to start disulfiram reviewed possible interactions with medications and other alcohol containing substances PFSH Medical History Alcohol abuse COVID-19 Social History (Updated 11/12/21 @ 07:24 by Adelina Veronica DO) Alcohol intake: current Patient Tobacco Use Status: Never used Tobacco Review of Systems Const Reports as per HPI and Reports no additional complaints Physical Exam Const General: cooperative, healthy appearing and no acute distress Orientation/consciousness: patient oriented x3 Limitations: no limitations Neuro General: patient oriented x3 Psych Appearance: well kempt Speech and movement: Normal speech and movement present Affect: normal affect Attitude: cooperative Thought process: Normal thought process present and Circumstantial thought pro cess present Thought content: Normal thought content present Insight: Good insight present (Psych) Judgement: Good judgement present (Psych) Assessment & Plan Assessment & Plan (1) Alcohol use disorder, moderate, dependence: Code(s): F10.20 - Alcohol dependence, uncomplicated Category: Medical Plan: * disulfiram QD * continue naltrexone--wants the injeciton --will order (2) Bipolar 2 disorder: Code(s): F31.81 - Bipolar II disorder Category: Medical Plan: * restart lamictal 25mg QD * follow up 2 weeks Orders: Orders Complete Blood Count Auto Diff Today F10.20 - Alcohol dependence, uncomplicated Liver Panel Today F10.20 - Alcohol dependence, uncomplicated Comprehensive Met. Panel Today F10.20 - Alcohol dependence, uncomplicated Medications: New 2 lamotrigine 25 mg PO DAILY 14 tabs 0RF 14 days disulfiram 250 mg PO DAILY 30 tabs 0RF
== END 2024-01-06 10:41 | disposition home or self-care (01) ==
PROVIDERS: Visit Provider Nurse Practitioner Psychiatric/Mental Health
DX: F10.20 Alcohol dependence, uncomplicated (principal); F31.81 Bipolar II disorder
CPT/HCPCS: 99214

== ENCOUNTER → 2024-01-06 09:07 | Outpatient (BNVA) | payer OTHER, SELFPAY | PROVIDERS: Visit Provider Nurse Practitioner Psychiatric/Mental Health | DX: F10.20 Alcohol dependence, uncomplicated (principal); F31.81 Bipolar II disorder | CPT/HCPCS: 99212 ==

== ENCOUNTER 2024-01-20 09:18 | Outpatient (AMB) | payer OTHER, SELFPAY ==
--- NOTE | 2024-01-20 09:32 | A.OFFVISCC_ITS ---
Intake Visit Reasons: MAT/Vivitrol Injection Allergies amoxicillin [AMOXICILLIN] Allergy (Unknown, Verified 06/09/23 09:54) HIVES cephalexin [From Keflex] Allergy (Verified 06/09/23 09:54) Unknown risperidone [From Risperdal] Allergy (Verified 06/09/23 09:54) Unknown fluoxetine [Prozac] Adverse Reaction (Unknown, Verified 06/09/23 09:54) rash - not sure HPI HPI MAT/Vivitrol Injection: Details: Patient presents for AUD treatment follow up and vivtrol injection Currently taking Antabuse and naltrexone tolerating medication without issue--reports 1st 2 days with disulfiram she felt dizzy,but that has since subsided With regards to Bipolar DX: She reports tat she felt alot of anger over the weekend thinking about this as she feels she was misdiagnosed for many years She is hopeful that once Lamictal is back to therapeutic dose, she will be able to feel like she did several months ago. She will be starting work in the next week--she is very optimistic about this [facility] Medical History Alcohol abuse COVID-19 Social History (Updated 11/12/21 @ 07:24 by Adelina Veronica DO) Alcohol intake: current Patient Tobacco Use Status: Never used Tobacco Review of Systems Const Reports as per HPI and Reports no additional complaints Physical Exam Const General: cooperative, healthy appearing and anxious Orientation/consciousness: patient oriented x3 Limitations: no limitations Neuro General: patient oriented x3 Office Meds Vivitrol 380 mg intramuscular suspension,extended release Performing Provider: Chica Felton CNP Performing Location: [facility] Administered by: Gwendolyn Grigsby RN on 01/20/24 13:50 Dose Route Admin Location Dispensed Lot Number Expiration Date [facility] [employer] 380 mg IM RG 380 mg [id number] 01/13/26 81817-315-94 [facility] Assessment & Plan Assessment & Plan (1) Alcohol use disorder, moderate, dependence: Code(s): F10.20 - Alcohol dependence, uncomplicated Category: Medical Plan: * toelrated injection * declined alcohol pad--will seek out cholrehexadine to use to clean skin prior to next appt (2) Bipolar 2 disorder: Code(s): F31.81 - Bipolar II disorder Category: Medical Plan: * lamictal increased to 50mg daily for 2 weeks then to 100mg daily * encouraged to call office prior to next appt if necessary Orders: Orders AMB Naltrexone Injection Patient Supplied ([place]) 01/20/24 F10.20 - Alcohol dependence, uncomplicated Medications: New lamotrigine start taking in 14 days once you have completed the 50mg daily dose 100 mg PO DAILY 30 tabs 0RF lamotrigine 50 mg (2 x 25 mg) PO DAILY 28 tabs 0RF Discontinued lamotrigine Discontinued Reason: Doctor's Order 25 mg PO DAILY 14 days 14 tabs 0RF
== END 2024-01-20 10:07 | disposition home or self-care (01) ==
PROVIDERS: Visit Provider Nurse Practitioner Psychiatric/Mental Health
DX: F10.20 Alcohol dependence, uncomplicated (principal); F31.81 Bipolar II disorder
CPT/HCPCS: 99214

== ENCOUNTER → 2024-01-20 09:18 | Outpatient (BNVA) | payer OTHER, SELFPAY | PROVIDERS: Visit Provider Nurse Practitioner Psychiatric/Mental Health | DX: F10.20 Alcohol dependence, uncomplicated (principal); F31.81 Bipolar II disorder; Z51.81 Encounter for therapeutic drug level monitoring; Z79.899 Other long term (current) drug therapy | CPT/HCPCS: 96372; 99212; J2315 ==

== ENCOUNTER 2024-02-08 09:05 | Emergency (ER) | payer OTHER, SELFPAY ==
--- NOTE | ~2024-02-08 | US_ITS ---
EXAMINATION: US ABDOMEN LIMITED CLINICAL INFORMATION: Elevated LFTs. COMPARISON: None available. TECHNIQUE: Real-time imaging of the right upper quadrant abdominal viscera. FINDINGS: PANCREAS: The visualized pancreas appears unremarkable. LIVER: The liver is enlarged measuring 19.8 cm. The liver contour is normal. Parenchymal echogenicity is increased. No focal hepatic lesion. There is no intrahepatic biliary duct dilatation seen. GALLBLADDER: The gallbladder is physiologically distended without evidence of stones, sludge, polyps, wall thickening or pericholecystic fluid. COMMON BILE DUCT: Normal in caliber measuring 0.3 cm in diameter. RIGHT KIDNEY: No hydronephrosis. No renal calculi or focal parenchymal lesions. The kidney measures 10.4 cm in maximum dimension. FREE FLUID: None. US/US abdomen limited IMPRESSION: Hepatomegaly. Increased liver echogenicity which can be seen with hepatocellular disease, most commonly hepatic steatosis. Electronically signed by: Kirt Mendoza MD 02/08/2024 03:42 PM EDT
[2024-02-08 09:17] VITALS: BP 138/85; PULSE 97; RESP 18; TEMP 36.6; O2SAT 98; BMI 43.9
[2024-02-08 09:33] LABS: MANUAL DIFF FLAG NO
[2024-02-08 09:35] LABS: Basophils Percent Auto 0.3 % (0-2); Eosinophils Absolute Auto 0.3 X10*3/uL (0.0-0.4); Eosinophils Percent Auto 3.2 % (0-4); Hematocrit 43.2 % (37.0-47.0); Hemoglobin 15.6 g/dl (12.0-16.0); Imm Gran Abs Auto 0.04 X10*3/uL (0.00-0.03); Imm Gran Pct Auto 0.5 % (0.0-0.4); Lymphocytes Absolute Auto 1.7 X10*3/uL (1.2-4.9); Lymphocytes Percent Auto 19.7 % (20-40); Mean Corpuscular HGB Conc 36.1 g/dl (31.0-35.0); Mean Corpuscular Hemoglobin 31.3 pg (27.0-33.0); Mean Corpuscular Volume 86.7 fL (80.0-98.0); Mean Platelet Volume 8.7 fL (9.4-12.3); Monocytes Absolute Auto 0.4 X10*3/uL (0.1-1.2); Monocytes Percent Auto 4.9 % (2-11); Neutrophils Absolute Auto 6.2 x10*3/uL (2.0-8.3); Neutrophils Percent Auto 71.4 % (45-73); Platelet Count 246 X10*3/uL (160-400); Red Blood Count 4.98 X10*6/uL (4.20-5.50); Red Cell Distribution Width 12.2 % (11.0-16.0); White Blood Count 8.7 X10*3/uL (4.8-10.8)
[2024-02-08 09:38] LABS: Appearance Urine Cloudy; Color Urine Dark Yellow; Glucose Urine UA Negative (Negative); Leukocyte Esterase Urine Negative (Negative); Nitrite Urine Negative (Negative); PH 5.5 (5.0-9.0); Specific Gravity - Urine 1.025 (1.005-1.025); UMIC TRIGGER UACC YES; Urine Blood Negative (Negative); Urine Ketones Negative (Negative); Urine Protein 30 (1+) mg/dL (Neg-Trace)
[2024-02-08 09:39] LABS: Urine Pregnancy NEGATIVE (NEGATIVE)
[2024-02-08 09:40] LABS: UPreg QC Valid YES
[2024-02-08 09:43] LABS: Bacteria Urine Trace (None Seen); Hyaline Casts Urine 0-2 /LPF (0-2); RBC Urine 0-2 /HPF (0-2); WBC Urine 0-5 /HPF (0-5)
[2024-02-08 09:48] LABS: Alanine Aminotransferase 888 U/L (0-31); Albumin Level 4.1 g/dL (3.5-5.0); Alkaline Phosphatase 139 U/L (39-117); Anion Gap 10 (12-20); Aspartate Amino Transferase 540 U/L (5-31); Bilirubin Direct 0.4 mg/dL (0.0-0.5); Bilirubin Total 1.2 mg/dL (0.0-1.0); Blood Urea Nitrogen 9 mg/dL (9-16); Calcium 9.2 mg/dL (8.4-10.2); Carbon Dioxide 22 mmol/L (22-29); Chloride 109 mmol/L (96-108); Creatinine Clr Calc Pharmacy 117.3; Estimated Glomerular Filt Rate > 60; Glucose Random 160 mg/dL (60-115); Lipase 14 U/L (8-78); Potassium 3.8 mmol/L (3.3-5.1); Sodium 137 mmol/L (135-145); Total Protein 7.1 g/dL (6.5-8.0)
--- NOTE | 2024-02-08 12:49 | ED.GENADULT ---
HPI - General Adult General Chief complaint: Allergic Reaction Stated complaint: allergic reaction Related Data Previous Rx's ?Medication ?Instructions ?Recorded naltrexone 50 mg tablet 50 mg PO DAILY #30 tabs 12/30/23 ondansetron 4 mg disintegrating 4 mg PO Q8H PRN nausea and 12/30/23 tablet vomiting #12 tabs naltrexone microspheres 380 mg 380 mg IM Q4W #1 ea 01/06/24 intramuscular suspension,extended release (Vivitrol) gabapentin 100 mg capsule 100 mg PO BID PRN anxiety #60 caps 01/12/24 lamotrigine 100 mg tablet 100 mg PO DAILY #30 tabs 01/20/24 lamotrigine 25 mg tablet 50 mg (2 x 25 mg) PO DAILY #28 tabs 01/20/24 disulfiram 250 mg tablet 250 mg PO DAILY #30 tabs 02/03/24 Allergies Allergy/AdvReac Type Severity Reaction Status Date / Time amoxicillin [AMOXICILLIN] Allergy Unknown HIVES Verified 02/08/24 09:19 cephalexin [From Keflex] Allergy Unknown Verified 02/08/24 09:19 risperidone [From Risperdal] Allergy Unknown Verified 02/08/24 09:19 fluoxetine [Prozac] AdvReac Unknown rash - not Verified 02/08/24 09:19 [facility] Past Medical History Medical History Alcohol abuse COVID-19 Social History Social History (Updated 11/12/21 @ 07:24 by Adelina Veronica DO) Alcohol intake: current Patient Tobacco Use Status: Never used Tobacco Advance Directives: No Advance Directives Information Provided: No Do you have a plan to hurt others: No Plan Physical Exam ED Vital Signs: Vital Signs - 24 hr 02/08/24 09:17 Temperature 98 F Pulse Rate 97 Respiratory Rate 18 Blood Pressure 138/85 Pulse Oximetry 98 Oxygen Delivery Method Room Air BMI result Body Mass Index 43.9 Course Course Course Narrative: vivitrol, antebuse, gapaentin & Lamictal x1 mos Medical Decision Making Lab Data 02/08/24 09:28 02/08/24 09:28 Labs: Lab Results 02/08/24 Range/Units 09:28 WBC 8.7 (4.8-10.8) X10*3/uL RBC 4.98 (4.20-5.50) X10*6/uL Hgb 15.6 (12.0-16.0) g/dl Hct 43.2 (37.0-47.0) % MCV 86.7 (80.0-98.0) fL MCH 31.3 (27.0-33.0) pg MCHC 36.1 H (31.0-35.0) g/dl RDW 12.2 (11.0-16.0) % Plt Count 246 (160-400) X10*3/uL MPV 8.7 L (9.4-12.3) fL Immature Gran % (Auto) 0.5 H (0.0-0.4) % Neut % (Auto) 71.4 (45-73) % Lymph % (Auto) 19.7 L (20-40) % [place] % (Auto) 4.9 (2-11) % Eos % (Auto) 3.2 (0-4) % Baso % (Auto) 0.3 (0-2) % Lymph # (Auto) 1.7 (1.2-4.9) X10*3/uL [place] # (Auto) 0.4 (0.1-1.2) X10*3/uL Eos # (Auto) 0.3 (0.0-0.4) X10*3/uL Baso # (Auto) 0.0 (0.0-0.2) X10*3/uL Abs Immat Gran (auto) 0.04 H (0.00-0.03) X10*3/uL Absolute Neuts (auto) 6.2 (2.0-8.3) x10*3/uL Absolute Nucleated RBC 0.000 (0.0-0.012) X10*3/uL Nucleated RBC % (auto) 0.0 (0.0-0.2) /100WBC Sodium 137 (135-145) mmol/L Potassium 3.8 (3.3-5.1) mmol/L Chloride 109 H (96-108) mmol/L Carbon Dioxide 22 (22-29) mmol/L Anion Gap 10 L (12-20) BUN 9 (9-16) mg/dL Creatinine 0.77 (0.5-1.4) mg/dL Estim Creat Clear Calc 117.3 Estimated GFR > 60 Random Glucose 160 H (60-115) mg/dL Calcium 9.2 (8.4-10.2) mg/dL Total Bilirubin 1.2 H (0.0-1.0) mg/dL Direct Bilirubin 0.4 (0.0-0.5) mg/dL AST 540 H (5-31) U/L ALT 888 H (0-31) U/L Alkaline Phosphatase 139 H (39-117) U/L Total Protein 7.1 (6.5-8.0) g/dL Albumin 4.1 (3.5-5.0) g/dL Lipase 14 (8-78) U/L Urine Color Dark Yellow Urine Appearance Cloudy Urine pH 5.5 (5.0-9.0) Ur Specific [place] 1.025 (1.005-1.025) Urine Protein 30 (1+) H (Neg-Trace) mg/dL Urine Glucose (UA) Negative (Negative) mg/dL Urine Ketones Negative (Negative) mg/dL Urine Blood Negative (Negative) Urine Nitrite Negative (Negative) Ur Leukocyte Esterase Negative (Negative) Urine RBC 0-2 (0-2) /HPF Urine WBC 0-5 (0-5) /HPF Ur Squamous Epith Cells 6-10 (0-2) /HPF Urine Bacteria Trace (None Seen) Hyaline Casts 0-2 (0-2) /LPF Urine Test NEGATIVE (NEGATIVE) Discharge Plan Discharge Prescriptions: No Action gabapentin 100 mg capsule 100 mg PO BID PRN (Reason: anxiety) Qty: 60 0RF disulfiram 250 mg tablet 250 mg PO DAILY Qty: 30 0RF lamotrigine 25 mg tablet 50 mg PO DAILY Qty: 28 0RF lamotrigine 100 mg tablet 100 mg PO DAILY Qty: 30 0RF Rx Instructions: start taking in 14 days once you have completed the 50mg daily dose ondansetron 4 mg tablet,disintegrating 4 mg PO Q8H PRN (Reason: nausea and vomiting) Qty: 12 0RF naltrexone 50 mg tablet 50 mg PO DAILY Qty: 30 0RF Rx Instructions: take 1/2 tab daily for 3 days then increase to one tab daily Vivitrol 380 mg suspension,extended rel recon 380 mg IM Q4W Qty: 1 5RF Print Language: Mongolian
[2024-02-08 12:50] VITALS: BP 134/77; PULSE 99; RESP 19; TEMP 36.6; O2SAT 97
[2024-02-08 13:01] VITALS: BP 135/80; PULSE 94; RESP 16; TEMP 36.1; O2SAT 98
--- NOTE | 2024-02-08 13:09 | ED.GENADULT ---
HPI - General Adult General Chief complaint: Allergic Reaction Stated complaint: allergic reaction Time Seen by Provider: 02/08/24 13:06 Source: patient Mode of arrival: ambulatory Limitations: no limitations History of Present Illness HPI narrative: 38 year old female presents to the ER with swollen lower lip and hives with a headache and dark urine. She states she recently started gabapentin and to use. She states she has not drank anything for 6 weeks she states that she was told that she could have some elevated LFTs due to the medication that she recently started she denies any fevers chills denies any falls or injuries she states she has never had any issues with her liver functions in the past. While she complains of hives they seemed to go down if she does not scratch them she was able to not often fall asleep in the waiting room she denies any suicide attempts or Tylenol use. Related Data Previous Rx's ?Medication ?Instructions ?Recorded naltrexone 50 mg tablet 50 mg PO DAILY #30 tabs 12/30/23 ondansetron 4 mg disintegrating 4 mg PO Q8H PRN nausea and 12/30/23 tablet vomiting #12 tabs naltrexone microspheres 380 mg 380 mg IM Q4W #1 ea 01/06/24 intramuscular suspension,extended release (Vivitrol) gabapentin 100 mg capsule 100 mg PO BID PRN anxiety #60 caps 01/12/24 lamotrigine 100 mg tablet 100 mg PO DAILY #30 tabs 01/20/24 lamotrigine 25 mg tablet 50 mg (2 x 25 mg) PO DAILY #28 tabs 01/20/24 disulfiram 250 mg tablet 250 mg PO DAILY #30 tabs 02/03/24 Allergies Allergy/AdvReac Type Severity Reaction Status Date / Time amoxicillin [AMOXICILLIN] Allergy Unknown HIVES Verified 02/08/24 09:19 cephalexin [From Keflex] Allergy Unknown Verified 02/08/24 09:19 risperidone [From Risperdal] Allergy Unknown Verified 02/08/24 09:19 fluoxetine [Prozac] AdvReac Unknown rash - not Verified 02/08/24 09:19 sure Review of Systems Review of Systems: Review of systems: General: Patient denies any fever chills recent illness or falls Musculoskeletal: Denies back pain or body aches or other injuries HEENT: denies headache, runny nose, ear pain Respiratory: denies shortness of breath, cough Cardiovascular: no chest pain or palpitations : denies dysuria, frequency Abdomen: no nausea vomiting denies abdominal pain Extremities: no swelling, no pain Skin: Rash and itchiness no diaphoresis Yes all other systems are reviewed and are negative PMFSH Past Medical History Medical History Alcohol abuse COVID-19 Social History Social History (Updated 11/12/21 @ 07:24 by Adelina Veronica DO) Alcohol intake: current Patient Tobacco Use Status: Never used Tobacco Advance Directives: No Advance Directives Information Provided: No Do you have a plan to hurt others: No Plan Physical Exam ED Vital Signs: Vital Signs - 24 hr 02/08/24 09:17 02/08/24 12:50 02/08/24 13:01 Temperature 98 F 98 F 96.9 F Pulse Rate 97 99 94 Respiratory Rate 18 19 16 Blood Pressure 138/85 134/77 135/80 Pulse Oximetry 98 97 98 Oxygen Delivery Method Room Air Room Air Room Air BMI result Body Mass Index 43.9 General: Well-appearing well-nourished in no signs of distress HEENT: Normocephalic atraumatic Neck: No signs of JVD, no masses no tenderness or lymphadenopathy Cardiovascular: Regular rate and rhythm Respiratory: Clear to auscultation bilaterally Abdomen: Soft nontender no masses Extremities: Normal pedal pulses no signs of edema Skin: Dry warm no rashes Back: No tenderness full ROM Course Reevaluation(s) Reevaluation #1: Patient's ultrasound was unremarkable patient does have elevated LFT they did discus the case with the GI specialist and we agreed that the patient safe to go home to avoid the gabapentin Tylenol and follow up with her doctor. Medications Administered Discontinued Medications Generic Name Dose Route Start Last Admin Trade Name Freq PRN Reason Stop Dose Admin Diphenhydramine HCl 25 mg 02/08/24 13:14 02/08/24 14:08 Diphenhydramine Hcl 50 Mg/Ml Vial IVPUSH 02/08/24 13:15 25 mg ONCE ONE Administration Sodium Chloride 1,000 mls @ 999 mls/hr 02/08/24 13:15 02/08/24 14:16 Ns IV 02/08/24 14:15 999 mls/hr .Q1H1M EARLENE Administration Ketorolac Tromethamine 15 mg 02/08/24 13:08 02/08/24 14:08 Ketorolac Tromethamine 15 Mg/Ml Vial IVPUSH 02/08/24 13:09 15 mg ONCE ONE Administration Metoclopramide HCl 10 mg 02/08/24 13:08 02/08/24 14:08 Metoclopramide Hcl 10 Mg/2 Ml Vial IVPUSH 02/08/24 13:09 10 mg ONCE ONE Administration Prednisone 60 mg 02/08/24 14:16 02/08/24 15:17 Prednisone 20 Mg Tablet PO 02/08/24 14:17 60 mg ONCE ONE Administration Medical Decision Making Medical Decision Making [facility] Narrative: I will check labs in the patient for ultrasound I will discuss the case with Gastroenterology after the ultrasound and ammonia levels come back Differential Diagnosis Differential Diagnoses: The differential diagnosis associated with the presentation includes Hepatitis dehydration electrolyte abnormality weakness medical Consult Healthcare Provider Management of the patient was discussed with: [employer] with Dr. Michael who agreed with bilirubin PT INR and lft patient can follow up outpatient with PCP. No gabpentin no tylenol or NSAIDS and can follow up outpatient. Lab Data 02/08/24 09:28 02/08/24 09:28 Labs: Lab Results 02/08/24 02/08/24 02/08/24 Range/Units 09: 09:31 13:59 WBC 8.7 (4.8-10.8) X10*3/uL RBC 4.98 (4.20-5.50) X10*6/uL Hgb 15.6 (12.0-16.0) g/dl Hct 43.2 (37.0-47.0) % MCV 86.7 (80.0-98.0) fL MCH 31.3 (27.0-33.0) pg MCHC 36.1 H (31.0-35.0) g/dl RDW 12.2 (11.0-16.0) % Plt Count 246 (160-400) X10*3/uL MPV 8.7 L (9.4-12.3) fL Immature Gran % (Auto) 0.5 H (0.0-0.4) % Neut % (Auto) 71.4 (45-73) % Lymph % (Auto) 19.7 L (20-40) % [place] % (Auto) 4.9 (2-11) % Eos % (Auto) 3.2 (0-4) % Baso % (Auto) 0.3 (0-2) % Lymph # (Auto) 1.7 (1.2-4.9) X10*3/uL [place] # (Auto) 0.4 (0.1-1.2) X10*3/uL Eos # (Auto) 0.3 (0.0-0.4) X10*3/uL Baso # (Auto) 0.0 (0.0-0.2) X10*3/uL Abs Immat Gran (auto) 0.04 H (0.00-0.03) X10*3/uL Absolute Neuts (auto) 6.2 (2.0-8.3) x10*3/uL Absolute Nucleated RBC 0.000 (0.0-0.012) X10*3/uL Nucleated RBC % (auto) 0.0 (0.0-0.2) /100WBC Sodium 137 (135-145) mmol/L Potassium 3.8 (3.3-5.1) mmol/L Chloride 109 H (96-108) mmol/L Carbon Dioxide 22 (22-29) mmol/L Anion Gap 10 L (12-20) BUN 9 (9-16) mg/dL Creatinine 0.77 (0.5-1.4) mg/dL Estim Creat Clear Calc 117.3 Estimated GFR > 60 Random Glucose 160 H (60-115) mg/dL Calcium 9.2 (8.4-10.2) mg/dL Magnesium 1.9 (1.6-2.6) mg/dL Total Bilirubin 1.2 H (0.0-1.0) mg/dL Direct Bilirubin 0.4 (0.0-0.5) mg/dL AST 540 H (5-31) U/L ALT 888 H (0-31) U/L Alkaline Phosphatase 139 H (39-117) U/L Ammonia 38 (13-55) umol/L Total Protein 7.1 (6.5-8.0) g/dL Albumin 4.1 (3.5-5.0) g/dL Lipase 14 (8-78) U/L Urine Color Dark Yellow Urine Appearance Cloudy Urine pH 5.5 (5.0-9.0) Ur Specific [place] 1.025 (1.005-1.025) Urine Protein 30 (1+) H (Neg-Trace) mg/dL Urine Glucose (UA) Negative (Negative) mg/dL Urine Ketones Negative (Negative) mg/dL Urine Blood Negative (Negative) Urine Nitrite Negative (Negative) Ur Leukocyte Esterase Negative (Negative) Urine RBC 0-2 (0-2) /HPF Urine WBC 0-5 (0-5) /HPF Ur Squamous Epith Cells 6-10 (0-2) /HPF Urine Bacteria Trace (None Seen) Hyaline Casts 0-2 (0-2) /LPF Urine Test NEGATIVE (NEGATIVE) Urine Opiates Screen Not Detected (Not Detect) Ur Buprenorphine Scrn Not Detected (Not Detect) ng/mL Ur Oxycodone Screen Not Detected (Not Detect) ng/mL Urine Methadone Screen Not Detected (Not Detect) ng/mL Urine Fentanyl Screen Not Detected (Not Detect) Ur Barbiturates Screen Not Detected (Not Detect) Ur Phencyclidine Scrn Not Detected (Not Detect) Ur Amphetamines Screen Not Detected (Not Detect) U Benzodiazepines Scrn Not Detected (Not Detect) Urine Cocaine Screen Not Detected (Not Detect) U Marijuana (THC) Screen Not Detected (Not Detect) Ethyl Alcohol < 10 mg/dL Discharge Plan Discharge Clinical Impression: Acute hepatitis, Elevated LFTs Patient Disposition: Home, Self-Care Instructions: Hepatitis C (ED) Additional Instructions: You were seen today in the emergency department for a rash. We will treat with prednisone for the next few days. You do have elevated LFTs you need to follow up with your primary care doctor he needs to stop the gabapentin as well as Tylenol and the Antabuse. No more lamictal I gave you follow up information. Prescriptions: No Action gabapentin 100 mg capsule 100 mg PO BID PRN (Reason: anxiety) Qty: 60 0RF disulfiram 250 mg tablet 250 mg PO DAILY Qty: 30 0RF lamotrigine 25 mg tablet 50 mg PO DAILY Qty: 28 0RF lamotrigine 100 mg tablet 100 mg PO DAILY Qty: 30 0RF Rx Instructions: start taking in 14 days once you have completed the 50mg daily dose ondansetron 4 mg tablet,disintegrating 4 mg PO Q8H PRN (Reason: nausea and vomiting) Qty: 12 0RF naltrexone 50 mg tablet 50 mg PO DAILY Qty: 30 0RF Rx Instructions: take 1/2 tab daily for 3 days then increase to one tab daily Vivitrol 380 mg suspension,extended rel recon 380 mg IM Q4W Qty: 1 5RF Print Language: British
[2024-02-08 13:12] LABS: Ethanol < 10 mg/dL; Magnesium 1.9 mg/dL (1.6-2.6)
[2024-02-08 13:47] LABS: Amphetamine Screen Urine Not Detected (Not Detect); Barbiturates, Urine Not Detected (Not Detect); Benzodiazepines Screen Urine Not Detected (Not Detect); Buprenorphine Scr Not Detected (Not Detect); Cannabinoid Screen Urine Not Detected (Not Detect); Cocaine Screen Urine Not Detected (Not Detect); Fentanyl, urine Not Detected (Not Detect); Methadone Screen, Urine Not Detected (Not Detect); Opiate Screen Urine Not Detected (Not Detect); Oxycodone Screen Urine Not Detected (Not Detect); Phencyclidine Screen Urine Not Detected (Not Detect)
[2024-02-08] MEDS: Metoclopramide HCl 10 MG/2 ML VIAL IVPUSH (14:08)
[2024-02-08] MEDS: Ketorolac Tromethamine 15 MG/ML VIAL IVPUSH (14:08)
[2024-02-08] MEDS: diphenhydrAMINE HCL 50 MG/ML VIAL 25 MG IVPUSH (14:08)
[2024-02-08 14:10] LABS: Ammonia 38 umol/L (13-55)
[2024-02-08] MEDS: 0.9 % Sodium Chloride 1,000 ML 999 ML IV (14:16)
[2024-02-08] MEDS: predniSONE 20 MG TABLET 60 MG PO (15:17)
[2024-02-08 16:07] VITALS: BP 109/56; PULSE 68; RESP 16; TEMP 36.3; O2SAT 98
[2024-02-08 16:20] VITALS: BP 109/56; PULSE 68; RESP 16; TEMP 36.3; O2SAT 98
[2024-02-09 05:40] LABS: Hepatitis A Antibody IgM 0.19 Index (0-0.79); ~Hepatitis A Antibody IgM Nonreactive (Nonreactive)
[2024-02-09 05:41] LABS: HBsAGNum1 0.32 S/CO (0.00-0.99); Hepatitis B Core Antibody Nonreactive (Nonreactive); Hepatitis B Surface Antigen Negative (Negative); ~HepC Num1 0.11 S/CO (0.00-0.79); ~Hepatitis B Surface Antibody REACTIVE (Nonreactive); ~Hepatitis C Antibody Nonreactive (Nonreactive)
== END 2024-02-08 16:21 | disposition home or self-care (01) ==
PROVIDERS: Physician Assistant; Emergency Provider Student in an Organized Health Care Education/Training Program
DX: B17.9 Acute viral hepatitis, unspecified (principal); R79.89 Other specified abnormal findings of blood chemistry; Z79.899 Other long term (current) drug therapy
CPT/HCPCS: 36415; 76705; 80048; 80076; 80307; 81001; 81025; 82140; 83690; 83735; 85025; 86704; 86706; 86709; 86803; 87340; 96374; 96375; 99284; J1200; J1885; J2765

== ENCOUNTER 2024-02-10 09:21 | Outpatient (AMB) | payer OTHER, SELFPAY ==
--- NOTE | 2024-02-10 09:28 | A.OFFVISCC_ITS ---
Intake Visit Reasons: MAT Office Allergies amoxicillin [AMOXICILLIN] Allergy (Unknown, Verified 02/10/24 09:59) HIVES cephalexin [From Keflex] Allergy (Verified 02/10/24 09:59) Unknown risperidone [From Risperdal] Allergy (Verified 02/10/24 09:59) Unknown fluoxetine [Prozac] Adverse Reaction (Unknown, Verified 02/10/24 09:59) rash - not sure HPI HPI MAT Office: Details: Patient is presents for follow up Seen in ED 2 days ago for facial swelling and dark urine found to have acute hepatitis-stopped all medications and started on prednisone today presents with ongoing swelling and raised, red, irregularly shaped areas all over the trunk and reports is is spreading down her legs she appears ill and uncomfortable she describes these areas as painful She reports he urine is brown and she feels confused and in a daze. She believes this reaction and current symptoms are related to disulfiram as this is the only new medication she has been taking of concern is also her Lamotrigine which she recently increased to 100mg --she previously tolerated this dose, however was not taking disulfiram at that time [facility] Medical History (Updated 02/10/24 @ 15:09 by Vandana Gomez PA-C) Shortness of breath Alcohol abuse COVID-19 Social History (Updated 11/12/21 @ 07:24 by Adelina Veronica DO) Alcohol intake: current Patient Tobacco Use Status: Never used Tobacco Advance Directives: No Advance Directives Information Provided: No Do you have a plan to hurt others: No Plan Patient : No Review of Systems Const Reports as per HPI Physical Exam Const Other: swelling of the face noted hives/red raised circular areas on abdomen and breasts General: anxious, ill appearing and tired appearing Orientation/consciousness: patient oriented x3 Neuro General: patient oriented x3 Assessment & Plan Assessment & Plan (1) Alcohol use disorder, moderate, dependence: Code(s): F10.20 - Alcohol dependence, uncomplicated Category: Medical Plan: * all medications on hold at this time (2) Elevated LFTs: Code(s): R79.89 - Other specified abnormal findings of blood chemistry Category: Medical Plan: * walked down to ED by track worker * discussed case with ED provider and updated on changes reported by patient --at time of this note, patient has been medically admitted
== END 2024-02-10 09:50 | disposition home or self-care (01) ==
PROVIDERS: Visit Provider Nurse Practitioner Psychiatric/Mental Health
DX: F10.20 Alcohol dependence, uncomplicated (principal); R79.89 Other specified abnormal findings of blood chemistry
CPT/HCPCS: 99214

== ENCOUNTER → 2024-02-10 09:21 | Outpatient (BNVA) | payer OTHER, SELFPAY | PROVIDERS: Visit Provider Nurse Practitioner Psychiatric/Mental Health ==

== ENCOUNTER 2024-02-10 09:49 | Inpatient (IN) | payer OTHER, SELFPAY ==
--- NOTE | ~2024-02-10 | CT_ITS ---
EXAMINATION: CT HEAD WITHOUT CONTRAST CLINICAL INFORMATION: Altered mental status COMPARISON: CT head 06/09/2023. TECHNIQUE: Contiguous axial imaging was performed from the skull base to vertex without intravenous administration of contrast. This CT examination was performed using dose optimization techniques as appropriate, variously including the following: *Automated exposure control *Adjustment of mA and/or kV according to patient size (this includes techniques or standardized protocols for targeted exams where dose is matched to indication/reason for exam; i.e. extremities or head) *Use of iterative reconstruction technique DLP: 680 mGy-cm FINDINGS: There is no acute intracranial hemorrhage or abnormal extra-axial collection. No intracranial mass effect or midline shift. Lateral and third ventricles are normal. No hydrocephalus. Flores-white matter differentiation is preserved and there is no evidence of acute territorial infarct. The calvarium and skull base are intact. Mastoid air cells and middle ear cavities are well aerated. No active paranasal sinus disease. CT/CT head/brain wo IV con IMPRESSION: Normal CT scan of the head. No evidence of acute territorial infarct or hemorrhage. Electronically signed by: Orlin Santacruz MD 02/10/2024 12:12 PM EDT
--- NOTE | ~2024-02-10 | XR_ITS ---
EXAMINATION: XR CHEST CLINICAL INFORMATION: Chest pain. Shortness of breath. COMPARISON: CT angiogram chest 10/28/2021 TECHNIQUE: 2 views of the chest were obtained. FINDINGS: The lungs are adequately expanded. No focal consolidation. Minimal streaky atelectasis in the left lung base. No pleural effusions or pneumothorax. The cardiomediastinal silhouette is within normal limits. No acute osseous abnormality. XR/XR chest 2V IMPRESSION: No acute pulmonary disease. Minimal streaky atelectasis in the left lung base. Electronically signed by: Kirt Mendoza MD 02/10/2024 04:17 PM EDT
--- NOTE | ~2024-02-10 | CT_ITS ---
EXAMINATION: CT ABDOMEN AND PELVIS WITHOUT CONTRAST CLINICAL INFORMATION: Lower abdominal pain. Rule out diverticulitis or appendicitis. COMPARISON: Right upper quadrant abdominal ultrasound dated 02/08/2024. CT scan of the chest dated 10/28/2021. TECHNIQUE: Multidetector volumetric imaging was performed from the superior aspect of the liver through the pubic symphysis. Sagittal and coronal reformatted images were obtained on the technologist workstation. This CT examination was performed using dose optimization techniques as appropriate, variously including the following: *Automated exposure control *Adjustment of mA and/or kV according to patient size (this includes techniques or standardized protocols for targeted exams where dose is matched to indication/reason for exam; i.e. extremities or head) *Use of iterative reconstruction technique DLP: 855.79 mGy-cm. FINDINGS: LUNG BASES: Minimal scattered linear atelectasis in the left lung base. LIVER, GALLBLADDER, AND BILIARY TREE: The liver is borderline normal in size and is normal in shape there is patchy hepatic steatosis seen with large geographic areas of fatty sparing. No focal hepatic lesion on noncontrast imaging. No biliary ductal dilatation is present. The gallbladder is unremarkable with no evidence of radiopaque gallstones, gallbladder wall thickening, or obvious pericholecystic inflammatory changes. PANCREAS: Unremarkable on noncontrast imaging. SPLEEN: Enlarged, measuring 15.8 cm longitudinally. Spleen otherwise unremarkable.. ADRENAL GLANDS: Unremarkable on noncontrast imaging. KIDNEYS AND URETERS: The kidneys are normal in size, shape, and attenuation. No hydronephrosis, hydroureter, or calculi seen. No perinephric stranding. BLADDER: Unremarkable. PELVIC VISCERA: Unremarkable. GASTROINTESTINAL TRACT: The small and large bowel are unremarkable. The appendix is unremarkable. ABDOMINAL WALL: There is a lobulated 3.9 x 1.7 cm low-attenuation mass in the posterior right buttocks (series 2, image 52), likely an injection granuloma versus other soft tissue mass or potentially focal hematoma/posttraumatic change. There is a small fat-containing umbilical hernia. LYMPH NODES, VASCULAR: Unremarkable. OSSEOUS STRUCTURES: There is a benign right-sided T12 vertebral hemangioma. 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 CT/CT abdomen pelvis wo IV con IMPRESSION: 1. No acute intra-abdominal or pelvic process seen. Specifically, no evidence of acute appendicitis or diverticulitis. 2. Hepatic steatosis with large geographic areas of fatty sparing. 3. Splenomegaly. 4. Lobulated low-attenuation mass in the posterior right buttocks, likely an injection granuloma versus other soft tissue mass or potentially focal hematoma/posttraumatic change. Close clinical correlation and follow-up as clinically appropriate is recommended. Electronically signed by: Francheska Bartlett MD 02/10/2024 07:43 PM EDT
[2024-02-10 09:55] VITALS: BP 140/80; PULSE 117; RESP 20; TEMP 37.1; O2SAT 98; BMI 44.1
[2024-02-10 10:09] LABS: MANUAL DIFF FLAG NO
[2024-02-10 10:15] LABS: Basophils Percent Auto 0.1 % (0-2); Eosinophils Absolute Auto 0.1 X10*3/uL (0.0-0.4); Eosinophils Percent Auto 0.8 % (0-4); Hematocrit 41.5 % (37.0-47.0); Hemoglobin 14.7 g/dl (12.0-16.0); Imm Gran Abs Auto 0.05 X10*3/uL (0.00-0.03); Imm Gran Pct Auto 0.6 % (0.0-0.4); Lymphocytes Absolute Auto 1.3 X10*3/uL (1.2-4.9); Lymphocytes Percent Auto 14.2 % (20-40); Mean Corpuscular HGB Conc 35.4 g/dl (31.0-35.0); Mean Corpuscular Hemoglobin 31.3 pg (27.0-33.0); Mean Corpuscular Volume 88.3 fL (80.0-98.0); Mean Platelet Volume 8.9 fL (9.4-12.3); Monocytes Absolute Auto 0.5 X10*3/uL (0.1-1.2); Monocytes Percent Auto 5.8 % (2-11); Neutrophils Percent Auto 78.5 % (45-73); Platelet Count 224 X10*3/uL (160-400); Red Cell Distribution Width 12.3 % (11.0-16.0); White Blood Count 8.9 X10*3/uL (4.8-10.8)
[2024-02-10 10:17] LABS: INTERNATIONAL NORM RATIO 1.2 (0.9-1.1); Prothrombin Time 13.9 SEC (10.9-12.4)
[2024-02-10 10:23] LABS: Ammonia 40 umol/L (13-55)
[2024-02-10 10:31] LABS: Alanine Aminotransferase 1078 U/L (0-31); Albumin Level 3.8 g/dL (3.5-5.0); Alkaline Phosphatase 144 U/L (39-117); Anion Gap 12 (12-20); Aspartate Amino Transferase 601 U/L (5-31); Bilirubin Total 2.2 mg/dL (0.0-1.0); Blood Urea Nitrogen 7 mg/dL (9-16); Calcium 8.9 mg/dL (8.4-10.2); Carbon Dioxide 24 mmol/L (22-29); Chloride 107 mmol/L (96-108); Creatinine Clr Calc Pharmacy 129.4; Estimated Glomerular Filt Rate > 60; Ethanol < 10 mg/dL; Glucose Random 102 mg/dL (60-115); Lipase 14 U/L (8-78); Magnesium 1.8 mg/dL (1.6-2.6); Potassium 3.7 mmol/L (3.3-5.1); Sodium 139 mmol/L (135-145); Total Protein 6.7 g/dL (6.5-8.0)
[2024-02-10 10:35] LABS: Acetaminophen LAB < 3 mcg/mL (<30); Salicylate < 5.0 mg/dL (15-30)
--- NOTE | 2024-02-10 10:43 | ED.GENADULT ---
HPI - General Adult General Chief complaint: Allergic Reaction Stated complaint: allergic reaction to medication, fever Time Seen by Provider: 02/10/24 10:42 Source: patient Mode of arrival: ambulatory Limitations: no limitations History of Present Illness HPI narrative: 38-year-old female past medical history of bipolar disorder upper respiratory infection alcohol use disorder on into abuse for the past month as well as switched to gabapentin patient seen by me 2 days ago for a rash found to have elevated LFTs I did speak with the wind projects supervisor Dr. Michael who recommended taking the patient off of all her medications hepatotoxic the patient is bipolar and has stopped her lamotrigine has taken prednisone for the allergic reaction and today was following up with addiction medicine was sent here for change in mental status. Patient has been taking her prednisone. Related Data Previous Rx's ?Medication ?Instructions ?Recorded naltrexone 50 mg tablet 50 mg PO DAILY #30 tabs 12/30/23 ondansetron 4 mg disintegrating 4 mg PO Q8H PRN nausea and 12/30/23 tablet vomiting #12 tabs naltrexone microspheres 380 mg 380 mg IM Q4W #1 ea 01/06/24 intramuscular suspension,extended release (Vivitrol) gabapentin 100 mg capsule 100 mg PO BID PRN anxiety #60 caps 01/12/24 lamotrigine 100 mg tablet 100 mg PO DAILY #30 tabs 01/20/24 lamotrigine 25 mg tablet 50 mg (2 x 25 mg) PO DAILY #28 tabs 01/20/24 disulfiram 250 mg tablet 250 mg PO DAILY #30 tabs 02/03/24 prednisone 20 mg tablet 60 mg (3 x 20 mg) PO DAILY Asthma 02/08/24 5 days #15 tabs Allergies Allergy/AdvReac Type Severity Reaction Status Date / Time amoxicillin [AMOXICILLIN] Allergy Unknown HIVES Verified 02/10/24 09:59 cephalexin [From Keflex] Allergy Unknown Verified 02/10/24 09:59 risperidone [From Risperdal] Allergy Unknown Verified 02/10/24 09:59 fluoxetine [Prozac] AdvReac Unknown rash - not Verified 02/10/24 09:59 sure Review of Systems Review of Systems: Review of systems: General: Patient denies any fever chills recent illness or falls Musculoskeletal: Denies back pain or body aches or other injuries HEENT: denies headache, runny nose, ear pain Respiratory: denies shortness of breath, cough Cardiovascular: no chest pain or palpitations : denies dysuria, frequency Abdomen: no nausea vomiting denies abdominal pain Extremities: no swelling, no pain Skin: no diaphoresis Yes all other systems are reviewed and are negative PMFSH Past Medical History Medical History Alcohol abuse COVID-19 Social History Social History (Updated 11/12/21 @ 07:24 by Adelina Veronica DO) Alcohol intake: current Patient Tobacco Use Status: Never used Tobacco Advance Directives: No Advance Directives Information Provided: No Do you have a plan to hurt others: No Plan Physical Exam ED Vital Signs: Vital Signs - 24 hr 02/10/24 09:55 02/10/24 11:27 Temperature 98.8 F 98.1 F Pulse Rate 117 H 98 Respiratory Rate 20 18 Blood Pressure 140/80 H 117/47 L Pulse Oximetry 98 95 Oxygen Delivery Method Room Air Room Air BMI result Body Mass Index 44.1 General: Well-appearing well-nourished in no signs of distress HEENT: Normocephalic atraumatic Neck: No signs of JVD, no masses no tenderness or lymphadenopathy Cardiovascular: Regular rate and rhythm Respiratory: Clear to auscultation bilaterally Abdomen: Soft nontender no masses Extremities: Normal pedal pulses no signs of edema Skin: Dry warm no rashes Back: No tenderness full ROM Course Course Course Narrative: I spoke Dr. Patel who agrees the patient should be admitted she did want EBV and CMV tested which were added onto her blood work from today. I discussed the case with the hospitalist who will admit the patient. Medications Administered Generic Name Dose Route Start Last Admin Trade Name Freq PRN Reason Stop Dose Admin Sodium Chloride 1,000 mls @ 999 mls/hr 02/10/24 11:15 02/10/24 11:18 Ns IV 02/10/24 12:15 999 mls/hr .Q1H1M EARLENE Administration Discontinued Medications Generic Name Dose Route Start Last Admin Trade Name Freq PRN Reason Stop Dose Admin Sodium Chloride 1,000 mls @ 999 mls/hr 02/10/24 10:45 02/10/24 11:11 Ns IV 02/10/24 11:45 999 mls/hr .Q1H1M EARLENE Administration Medical Decision Making Medical Decision Making [facility] Narrative: I will check labs and reassess I will discuss the case with the GI again. Differential Diagnosis Differential Diagnoses: The differential diagnosis associated with the presentation includes Acute hepatitis hepatitis-B antibody that was drawn 2 days ago is reactive now likely vaccinated. LFTs and bilirubin are worse had an ultrasound 2 days ago has already had a CT scan I will again discuss the case as she has had increasing change in mental status especially with her bipolar disorder and taken off medications Admission/Observation Consideration of admission/observation: Escalation of care including admission/observation considered Consult Healthcare Provider Management of the patient was discussed with: Critical Systems Technician Dr. Patel Lab Data [facility] Lab Attestation statement: I reviewed the patient's lab results. 02/10/24 10:03 02/10/24 10:03 Labs: Lab Results 02/10/24 Range/Units 10:03 WBC 8.9 (4.8-10.8) X10*3/uL RBC 4.70 (4.20-5.50) X10*6/uL Hgb 14.7 (12.0-16.0) g/dl Hct 41.5 (37.0-47.0) % MCV 88.3 (80.0-98.0) fL MCH 31.3 (27.0-33.0) pg MCHC 35.4 H (31.0-35.0) g/dl RDW 12.3 (11.0-16.0) % Plt Count 224 (160-400) X10*3/uL MPV 8.9 L (9.4-12.3) fL Immature Gran % (Auto) 0.6 H (0.0-0.4) % Neut % (Auto) 78.5 H (45-73) % Lymph % (Auto) 14.2 L (20-40) % [place] % (Auto) 5.8 (2-11) % Eos % (Auto) 0.8 (0-4) % Baso % (Auto) 0.1 (0-2) % Lymph # (Auto) 1.3 (1.2-4.9) X10*3/uL [place] # (Auto) 0.5 (0.1-1.2) X10*3/uL Eos # (Auto) 0.1 (0.0-0.4) X10*3/uL Baso # (Auto) 0.0 (0.0-0.2) X10*3/uL Abs Immat Gran (auto) 0.05 H (0.00-0.03) X10*3/uL Absolute Neuts (auto) 7.0 (2.0-8.3) x10*3/uL Absolute Nucleated RBC 0.000 (0.0-0.012) X10*3/uL Nucleated RBC % (auto) 0.0 (0.0-0.2) /100WBC PT 13.9 H (10.9-12.4) SEC INR 1.2 H (0.9-1.1) Sodium 139 (135-145) mmol/L Potassium 3.7 (3.3-5.1) mmol/L Chloride 107 (96-108) mmol/L Carbon Dioxide 24 (22-29) mmol/L Anion Gap 12 (12-20) BUN 7 L (9-16) mg/dL Creatinine 0.70 (0.5-1.4) mg/dL Estim Creat Clear Calc 129.4 Estimated GFR > 60 Random Glucose 102 (60-115) mg/dL Calcium 8.9 (8.4-10.2) mg/dL Magnesium 1.8 (1.6-2.6) mg/dL Total Bilirubin 2.2 H (0.0-1.0) mg/dL AST 601 H (5-31) U/L ALT 1078 H (0-31) U/L Alkaline Phosphatase 144 H (39-117) U/L Ammonia 40 (13-55) umol/L Total Protein 6.7 (6.5-8.0) g/dL Albumin 3.8 (3.5-5.0) g/dL Lipase 14 (8-78) U/L Salicylates < 5.0 L (15-30) mg/dL Acetaminophen < 3 (<30) mcg/mL Ethyl Alcohol < 10 mg/dL Radiology Impression Discussion of test interpretation with radiology: I discussed test interpretation with the radiologist and I have reviewed the radiologist's reading. External Record Review External record reviewed: Inpatient record, Office record, Outpatient record, Prior outpatient labs and Prior outpatient radiology Core Measures AMI core measures followed: Yes Critical Care Time Critical Care Time Critical Care Time: Yes Total Critical Care Time: 40 Attestation: Acute allergic reaction as well as consult GI and getting the patient admitted to medicine Discharge Plan Discharge Clinical Impression: Hepatitis, Hives, Pruritic dermatitis Patient Disposition: Admitted As Inpatient Print Language: Liberian
[2024-02-10] MEDS: 0.9 % Sodium Chloride 1,000 ML 999 ML IV ×2 (11:11→11:18)
[2024-02-10 11:27] VITALS: BP 117/47; PULSE 98; RESP 18; TEMP 36.7; O2SAT 95
[2024-02-10 11:54] LABS: Appearance Urine Clear; Color Urine Yellow; Glucose Urine UA Negative (Negative); Leukocyte Esterase Urine Negative (Negative); Nitrite Urine Negative (Negative); PH 6.5 (5.0-9.0); Urine Blood Negative (Negative); Urine Ketones Trace mg/dL (Negative); Urine Protein Negative (Neg-Trace)
[2024-02-10 11:59] LABS: Amphetamine Screen Urine Not Detected (Not Detect); Barbiturates, Urine Not Detected (Not Detect); Benzodiazepines Screen Urine Not Detected (Not Detect); Buprenorphine Scr Not Detected (Not Detect); Cannabinoid Screen Urine Not Detected (Not Detect); Cocaine Screen Urine Not Detected (Not Detect); Fentanyl, urine Not Detected (Not Detect); Methadone Screen, Urine Not Detected (Not Detect); Opiate Screen Urine Not Detected (Not Detect); Oxycodone Screen Urine Not Detected (Not Detect); Phencyclidine Screen Urine Not Detected (Not Detect)
[2024-02-10 12:05] LABS: Monotest Negative (Negative)
[2024-02-10] MEDS: diphenhydrAMINE HCL 50 MG/ML VIAL 25 MG IVPUSH (12:24)
[2024-02-10] MEDS: methylPREDNISolone Sod Succ 125 MG/2 ML VIAL IVPUSH (12:24)
[2024-02-10] MEDS: Famotidine/PF 20 MG/2 ML VIAL IVPUSH (12:24)
--- NOTE | 2024-02-10 13:06 | PHA.MEDREC ---
Addendum entered by Sumaya Ring [facility] 02/10/24 13:37: Reviewed by [facility] Original Note: Pharmacy Consult ? Medication Reconciliation Pharmacy has completed the medication reconciliation. Spoke to patient to confirm med list. Patent states she no longer takes Lamotrigine 25 mg, Naltrexone 50 mg, and Ondansetron 4 mg. Patient says her next dose of Vivitrol is Next Tuesday02/14/24. Patient was Just seen 02/08/24 and was discharged with Prednisone 60 mg daily for 5 days, patients says she is still takin and tuesday is her end date. Patient is now on Lamotrigine 100 mg daily.
--- NOTE | 2024-02-10 14:03 | P.HPHOSP_ITS ---
History of Present Illness Date of Service: 02/10/24 Attending physician on admission: [facility] Chief Complaint: AMS 38 yo F with a pmhx of bipolar 2, etoh use disorder (sober x6 weeks, on vivitrol and anabuse), SUGGS, who presented to the ED by recommendation from addiction medicine due to altered mental status. Intermittent confusion and stumbling over words. Everything in slow motion. Was in the ED 2 days ago for hives and found to have elevated LFTs. Stopped Anabuse ?hive reaction, and gabapentin and lamotrigine due to LFTs. Currently on prednisone for hives. On Vivitrol and sober x6 weeks, no drug use. New raspy voice and SOB starting last night with mild chest pain, mild dizziness. No cough. Also new left lower quadrant pain since yesterday. worsening in severity, constant dull ache 5/10 with stabbing pains 7/10. + nausea, no constipation or diarrhea. 1 episode of brown vaginal discharge a few days ago, none since. no concern for STIs. Review of Systems 2 Constitutional: Constitutional: Reports body ache(s), Reports difficulty sleeping, Reports fatigue and Denies headache(s) Eyes: Eyes: Denies change in vision ENT: Denies headache(s), Denies nasal congestion and Denies nasal discharge Cardiovascular: Cardiovascular: Reports chest pain and Reports dyspnea Respiratory: Respiratory: Reports dyspnea Gastrointestinal: Gastrointestinal: Reports as per HPI, Reports abdominal pain, Denies hematochezia, Denies constipation, Denies diarrhea, Reports nausea and Denies vomiting Genitourinary: Genitourinary: Denies dysuria and Denies vaginal odor Musculoskeletal: Musculoskeletal: Reports arthralgias Integumentary/Breasts: Comments: hives throughout body Neurologic: Denies headache(s) Psychiatric: Comments: no confusion or slow speeh during interview Endocrine: Endocrine: Reports fatigue Allergic/Immunologic: Allergic/Immunologic: Reports urticaria PMFSH Medical History (Updated 02/10/24 @ 15:09 by Vandana Gomez PA-C) Shortness of breath Alcohol abuse COVID-19 Functional capacity: independent ambulation Patient : No Social History (Updated 11/12/21 @ 07:24 by Adelina Veronica DO) Alcohol intake: current Patient Tobacco Use Status: Never used Tobacco Advance Directives: No Advance Directives Information Provided: No Do you have a plan to hurt others: No Plan Patient : No Meds Allergies Allergy/AdvReac Type Severity Reaction Status Date / Time amoxicillin [AMOXICILLIN] Allergy Unknown HIVES Verified 02/10/24 09:59 cephalexin [From Keflex] Allergy Unknown Verified 02/10/24 09:59 risperidone [From Risperdal] Allergy Unknown Verified 02/10/24 09:59 fluoxetine [Prozac] AdvReac Unknown rash - not Verified 02/10/24 09:59 sure Home Medications ?Medication ?Instructions ?Recorded ?Confirmed ?Last Taken ?Type celecoxib 100 mg capsule 100 mg PO DAILY 02/10/24 02/10/24 Unknown History Physical Exam 2 Vital Signs and Narrative: Vital Signs: Last Vital Signs Temp 98.1 F 02/10/24 11:27 Pulse 98 02/10/24 11:27 Resp 18 02/10/24 11:27 BP 117/47 L 02/10/24 11:27 Pulse Ox 95 02/10/24 11:27 O2 Del Method Room Air 02/10/24 11:27 BMI result Body Mass Index 44.1 const: A&O x3, no acute distress cardio: Regular rate and rhythm no murmur pulm: Clear to auscultation bilaterally abd: Soft, tender left lower quadrant and right lower quadrant, left greater than right. skin: urticaria on ankles and feet Results Labs 02/10/24 10:03 02/10/24 10:03 Labs: Laboratory Results - last 24 hr 02/10/24 02/10/24 10:03 11:42 MCV 88.3 MCH 31.3 MCHC 35.4 H RDW 12.3 Plt Count 224 MPV 8.9 L Immature Gran % (Auto) 0.6 H Neut % (Auto) 78.5 H Lymph % (Auto) 14.2 L [place] % (Auto) 5.8 Eos % (Auto) 0.8 Baso % (Auto) 0.1 Lymph # (Auto) 1.3 [place] # (Auto) 0.5 Eos # (Auto) 0.1 Baso # (Auto) 0.0 Abs Immat Gran (auto) 0.05 H Absolute Neuts (auto) 7.0 Absolute Nucleated RBC 0.000 Nucleated RBC % (auto) 0.0 PT 13.9 H INR 1.2 H Anion Gap 12 Estim Creat Clear Calc 129.4 Estimated GFR > 60 Random Glucose 102 Calcium 8.9 Magnesium 1.8 Total Bilirubin 2.2 H AST 601 H ALT 1078 H Alkaline Phosphatase 144 H Ammonia 40 Total Protein 6.7 Albumin 3.8 Lipase 14 Urine Color Yellow Urine Appearance Clear Urine pH 6.5 Ur Specific [place] 1.010 Urine Protein Negative Urine Glucose (UA) Negative Urine Ketones Trace Urine Blood Negative Urine Nitrite Negative Ur Leukocyte Esterase Negative Salicylates < 5.0 L Urine Opiates Screen Not Detected Ur Buprenorphine Scrn Not Detected Ur Oxycodone Screen Not Detected Urine Methadone Screen Not Detected Urine Fentanyl Screen Not Detected Acetaminophen < 3 Ur Barbiturates Screen Not Detected Ur Phencyclidine Scrn Not Detected Ur Amphetamines Screen Not Detected U Benzodiazepines Scrn Not Detected Urine Cocaine Screen Not Detected U Marijuana (THC) Screen Not Detected Ethyl Alcohol < 10 Monoscreen Negative Imaging Radiologist's Impressions: Impressions Head CT 02/10/24 10:13 IMPRESSION: Normal CT scan of the head. No evidence of acute territorial infarct or hemorrhage. Electronically signed by: Orlin Santacruz MD 02/10/2024 12:12 PM EDT RP Assessment and Plan (1) Altered mental status: Status: Acute (2) Abdominal pain: Status: Acute (3) Shortness of breath: Status: Acute (4) Elevated LFTs: Status: Acute Plan 38 yo F with a pmhx of bipolar 2, hx etoh abuse (sober x6 weeks, on vivitrol and anabuse), SUGGS with AMS AMS - intermittient confusion, unclear source, medication vs psychological vs infectious - recently stopped lamotrigine, gabapentin and started prednisone - head CT negative - CBC/UA/tox negative - elevated LFTs but normal ammonia abd pain- lower abd, mostly LLQ with nausea - A/P CT without contrast, r/o diverticulitis, appendicitis,other infectious source - CBC normal, UA negative - zofran 4mg Q6H PRN for nausea SOB/chest pain - EKG and chest CXR - viral swab elevated LFTs - hx etoh abuse, Anabuse and Vivitrol (just stopped anabuse 2 days ago), sober x6 weeks - trending upward from 2 days ago - hepatitis panel negative - abd US 2 days ago showed SUGGS admit to medical floor for ongoing w/u for AMS/abd pain/chest pain. Quality Stroke Does the patient have a stroke diagnosis?: No VTE Prior VTE?: No VTE Risk Level:: Medical - moderate - high VTE Device Contraindication: N/A - Device Ordered VTE Drug Contraindication: N/A - Med Ordered
--- NOTE | 2024-02-10 14:56 | ECG_ITS ---
Test Reason : CP SOB Blood Pressure : / mmHG Vent. Rate : 080 BPM Atrial Rate : 080 BPM P-R Int : 142 ms QRS Dur : 082 ms QT Int : 402 ms P-R-T Axes : 004 045 020 degrees QTc Int : 463 ms Normal sinus rhythm Normal ECG When compared with ECG of 28-OCT-2021 06:03, No significant change was found Referred By: Vandana Gomez Electronically Signed By:ROBIN CERDA
[2024-02-10 15:23] VITALS: BP 112/55; PULSE 79; RESP 18; TEMP 36.6; O2SAT 94
[2024-02-10 15:42] LABS: Troponin-I High Sensitivity < 2.7 ng/L (<3.5-17.0)
[2024-02-10] MEDS: Enoxaparin Sodium 40 MG/0.4 ML SYRINGE SUBCUT (16:02)
[2024-02-10] MEDS: 0.9 % Sodium Chloride Flush 3 ML SYRINGE IVFLUSH ×2 (16:03→20:52)
--- NOTE | 2024-02-10 16:24 | P.CNGI_ITS ---
History of Present Illness Data of Consult Service Date: 02/10/24 Requesting physician: Sean Schaefer Primary Care Provider: None Physician HPI Reason for consult: Elevated LFTs 38 YF with bipolar disorder, upper respiratory infection, alcohol use disorder on ant-abuse for the past month as well as switched to gabapentin 02/08/24 patient seen at [facility] ED for a rash found to have elevated LFTs GI (Dr. Michael) was consulted and advised taking the patient off of all her medications Hep A, B and C serologies were negative (Pt is immune to hep B) Pt denies past hx of hepatitis or jaundice or Family hx of liver disease Pt was diagnosed with bipolar disorder a month ago and was started on lamotrigine which helped her symptoms. Patient was also started on disulfiram for ETOH dependence (she denies any withdrawl symptoms after she stopped drinking) A week ago she started feeling tired with chills, joint pains, hand swelling and felt foggy. Pt reports having a fever of 103 last night and this am. Pt admits to binge drinking for the past several years (2-3 nips per day for a week and then stop for a few days). Patient reports last ETOH intake was 6 weeks ago Patient is bipolar and stopped her lamotrigine and has taken prednisone for the allergic reaction. She was following up with addiction medicine today and was sent to the ER for a change in mental status. 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 Increased liver echogenicity which can be seen with hepatocellular disease, most commonly hepatic steatosis. Review of Systems 2 Constitutional: Constitutional: Reports body ache(s), Reports difficulty sleeping, Reports fatigue and Denies headache(s) Eyes: Eyes: Denies change in vision ENT: Denies headache(s), Denies nasal congestion and Denies nasal discharge Cardiovascular: Cardiovascular: Reports chest pain and Reports dyspnea Respiratory: Respiratory: Reports dyspnea Gastrointestinal: Gastrointestinal: Reports as per HPI, Reports abdominal pain, Denies hematochezia, Denies constipation, Denies diarrhea, Reports nausea and Denies vomiting Genitourinary: Genitourinary: Denies dysuria and Denies vaginal odor Musculoskeletal: Musculoskeletal: Reports arthralgias Integumentary/Breasts: Comments: hives throughout body Neurologic: Denies headache(s) Psychiatric: Comments: no confusion or slow speeh during interview Endocrine: Endocrine: Reports fatigue Allergic/Immunologic: Allergic/Immunologic: Reports urticaria PMFSH Past Medical History Medical History (Updated 02/10/24 @ 15:09 by Vandana Gomez PA-C) Shortness of breath Alcohol abuse COVID-19 Social History Social History (Updated 11/12/21 @ 07:24 by Adelina Veronica DO) Alcohol intake: current Patient Tobacco Use Status: Never used Tobacco Advance Directives: No Advance Directives Information Provided: No Do you have a plan to hurt others: No Plan Patient : No Meds Allergies Allergy/AdvReac Type Severity Reaction Status Date / Time amoxicillin [AMOXICILLIN] Allergy Unknown HIVES Verified 02/10/24 09:59 cephalexin [From Keflex] Allergy Unknown Verified 02/10/24 09:59 risperidone [From Risperdal] Allergy Unknown Verified 02/10/24 09:59 fluoxetine [Prozac] AdvReac Unknown rash - not Verified 02/10/24 09:59 sure Active Medications: Current Medications Acetaminophen (Acetaminophen 325 Mg Tablet) 650 mg PO Q6H PRN PRN Reason: Pain, Mild (Pain Scale 1-3), fever or headache Calcium Carbonate (Calcium Carbonate 750 Mg Tab.Chew) 750 mg PO Q4H PRN PRN Reason: Heartburn Enoxaparin Sodium (Enoxaparin Sodium 40 Mg/0.4 Ml Syringe) 40 mg SUBCUT Q24H [facility] Last Admin: 02/10/24 16:02 Dose: 40 mg Magnesium Hydroxide (Milk Of Magnesia 30 Ml Oral.Susp) 30 ml PO DAILY PRN PRN Reason: Constipation Melatonin (Melatonin 3 Mg Tablet) 6 mg PO BEDTIME PRN PRN Reason: Insomnia Ondansetron HCl (Ondansetron Hcl 4 Mg/2 Ml Vial) 4 mg IVPUSH Q8H PRN PRN Reason: Nausea and Vomiting Prednisone (Prednisone 20 Mg Tablet) 60 mg PO DAILY [facility] Sodium Chloride (0.9 % Sodium Chloride Flush 3 Ml Syringe) 3 ml IVFLUSH QSHIFT [facility] Last Admin: 02/10/24 16:03 Dose: 3 ml Home Medications ?Medication ?Instructions ?Recorded ?Confirmed ?Last Taken ?Type celecoxib 100 mg capsule 100 mg PO DAILY 02/10/24 02/10/24 Unknown History Physical Exam 2 Vital Signs: Vital Signs: Last Vital Signs Temp 97.9 F 02/10/24 15:23 Pulse 79 02/10/24 15:23 Resp 18 02/10/24 15:23 BP 112/55 L 02/10/24 15:23 Pulse Ox 94 02/10/24 15:23 O2 Del Method Room Air 02/10/24 15:23 BMI result Body Mass Index 44.1 Const: General: no acute distress and ill appearing Nutritional Appearance: obese (Morbidly obese) Orientation/consciousness: patient oriented x3 L imitations: no limitations HEENT: Head: Yes normal to inspection Ears: hearing grossly normal bilaterally Eyes: Sclerae: sclerae normal Pupils: Equal, round and reactive pupils present Neck: Neck: Yes normal visual inspection Chest: Chest palpation & inspection: normal inspection of the chest Resp: Effort & Inspection: normal respiratory effort Auscultation: clear to auscultation bilaterally Cardio: Palpation: normal PMI Rate: regular rate Rhythm: regular rhythm Heart sounds: S1 normal heart sound present, S2 normal heart sound present and no murmurs GI: Inspection: Yes obesity Palpation (GI): Soft to palpation, nontender and No hepatosplenomegaly present Auscultation: normal bowel sounds Rectal Exam - Female: deferred Skin: General skin exam: no rashes or lesions noted Neuro: General: patient oriented x3, gait normal and moves all extremities Cranial nerves: Yes Equal, round and reactive pupils present Psych: Appearance: grossly normal Mental Status: mental status grossly normal Results Labs 02/10/24 10:03 02/10/24 10:03 Labs: Short CBC 02/10/24 Range/Units 10:03 WBC 8.9 (4.8-10.8) X10*3/uL Hgb 14.7 (12.0-16.0) g/dl Hct 41.5 (37.0-47.0) % Plt Count 224 (160-400) X10*3/uL BMP 02/10/24 10:03 Sodium 139 Potassium 3.7 Chloride 107 Carbon Dioxide 24 BUN 7 L Creatinine 0.70 Calcium 8.9 Liver Function 02/10/24 Range/Units 10:03 Total Bilirubin 2.2 H (0.0-1.0) mg/dL AST 601 H (5-31) U/L ALT 1078 H (0-31) U/L Alkaline Phosphatase 144 H (39-117) U/L Albumin 3.8 (3.5-5.0) g/dL Urine 02/10/24 Range/Units 11:42 Urine Color Yellow Urine Appearance Clear Urine pH 6.5 (5.0-9.0) Ur Specific [place] 1.010 (1.005-1.025) Urine Protein Negative (Neg-Trace) mg/dL Urine Glucose (UA) Negative (Negative) mg/dL Assessment and Plan (1) Elevated LFTs: Status: Acute (2) Alcohol use disorder, moderate, dependence: Status: Acute Plan 38 YF with bipolar disorder, upper respiratory infection, alcohol use disorder on ant-abuse for the past month as well as switched to gabapentin 02/08/24 patient seen at [facility] [place] ED for a rash found to have elevated LFTs GI (Dr. Michael) was consulted and advised taking the patient off of all her medications Hep A, B and C serologies were negative (Pt is immune to hep B) Sent to the ED by addiction clinic for worsening LFTs. Elevated LFTs likely drug induced hepatitis (related to antabuse or Lamotrigine). Other possibilites include CMV or EBV infection or autoimmune hepatitis Pt may have underlying chronic liver disease due to SUGGS related to morbid obesity and past ETOH use (Of note she had normal LFTs in 10/2021) RECOMMENDATIONS: 1. Follow LFTs daily 2. SURESH, AMA, smooth muscle ab, protein electrophoresis (added to am labs) Procedures Date of Service Date of Service: 02/10/24
--- NOTE | 2024-02-10 19:07 | PC.NURSE ---
This RN assumed pt care @ 1900. Pt a&ox4, no signs of distress Pt ambulates to the restroom with a steady gait Plan of care ongoing.
[2024-02-10 20:27] VITALS: BP 118/56; PULSE 73; RESP 14; TEMP 36.6; O2SAT 95
[2024-02-10 20:42] VITALS: BP 136/76; PULSE 70; RESP 17; TEMP 36.4; O2SAT 95
[2024-02-11 03:29] VITALS: BP 114/61; PULSE 75; RESP 18; TEMP 36.5; O2SAT 97
[2024-02-11 06:33] LABS: MANUAL DIFF FLAG NO
[2024-02-11 06:45] VITALS: BP 118/59; PULSE 87; RESP 16; TEMP 36.6; O2SAT 98
[2024-02-11 06:49] LABS: INTERNATIONAL NORM RATIO 1.1 (0.9-1.1); Prothrombin Time 12.9 SEC (10.9-12.4)
[2024-02-11 06:51] LABS: Anion Gap 11 (12-20); Blood Urea Nitrogen 8 mg/dL (9-16); Calcium 8.8 mg/dL (8.4-10.2); Carbon Dioxide 24 mmol/L (22-29); Chloride 109 mmol/L (96-108); Estimated Glomerular Filt Rate > 60; Gamma Glutamyl Transpeptidase 74 U/L (7-33); Glucose Random 137 mg/dL (60-115); Iron 56 mcg/dL (30-160); Percent Iron Saturation 31 % (15-50); Potassium 3.3 mmol/L (3.3-5.1); Sodium 141 mmol/L (135-145); Total Iron Binding Capacity 181 mcg/dL (228-428); Unsaturated Iron Binding 125 ug/dL
[2024-02-11 07:03] LABS: Basophils Percent Auto 0.1 % (0-2); Eosinophils Percent Auto 0.4 % (0-4); Hematocrit 36.1 % (37.0-47.0); Hemoglobin 12.6 g/dl (12.0-16.0); Imm Gran Abs Auto 0.06 X10*3/uL (0.00-0.03); Imm Gran Pct Auto 0.7 % (0.0-0.4); Lymphocytes Absolute Auto 1.3 X10*3/uL (1.2-4.9); Mean Corpuscular HGB Conc 34.9 g/dl (31.0-35.0); Mean Corpuscular Volume 88.7 fL (80.0-98.0); Mean Platelet Volume 9.6 fL (9.4-12.3); Monocytes Absolute Auto 0.6 X10*3/uL (0.1-1.2); Monocytes Percent Auto 6.8 % (2-11); Platelet Count 198 X10*3/uL (160-400); Red Blood Count 4.07 X10*6/uL (4.20-5.50); Red Cell Distribution Width 12.2 % (11.0-16.0)
[2024-02-11 07:19] LABS: Ferritin 325 ng/mL (10-122)
[2024-02-11] MEDS: 0.9 % Sodium Chloride Flush 3 ML SYRINGE IVFLUSH (07:26)
[2024-02-11 08:54] LABS: Adenovirus PCR Not Detected (Not Detect.); Bordetella parapertussis PCR Not Detected (Not Detect.); Bordetella pertussis PCR Not Detected (Not Detect.); Chlamydia pneumoniae PCR Not Detected (Not Detect.); Coronavirus 229E PCR Not Detected (Not Detect.); Coronavirus HKU1 PCR Not Detected (Not Detect.); Coronavirus NL63 PCR Not Detected (Not Detect.); Coronavirus OC43 PCR Not Detected (Not Detect.); Human metapneumovirus PCR Not Detected (Not Detect.); Influenza A PCR Not Detected (Not Detect.); Influenza B PCR Not Detected (Not Detect.); Mycoplasma pneumoniae PCR Not Detected (Not Detect.); Parainfluenza 1 PCR Not Detected (Not Detect.); Parainfluenza 2 PCR Not Detected (Not Detect.); Parainfluenza 3 PCR Not Detected (Not Detect.); Parainfluenza 4 PCR Not Detected (Not Detect.); RSV PCR Not Detected (Not Detect.); Rhino/Enterovirus PCR Not Detected (Not Detect.)
--- NOTE | 2024-02-11 09:19 | PM.DS ---
DS: Providers Provider Date of Service: 02/11/24 Date of admission: 02/10/24 15:00 Primary care physician: None Physician Consults: 02/10/24 16:38 Consult to Gastroenterology Routine Consulting Provider: Elizabeth Patel Reason for consultation: acute hepatitis Has provider been notified: No DS: Diagnosis Discharge Diagnosis (1) Elevated LFTs: Status: Acute (2) Alcohol use disorder, moderate, dependence: Status: Acute (3) Altered mental status: Status: Acute (4) Abdominal pain: Status: Acute (5) Shortness of breath: Status: Acute DS: Summary Hospital Course Hospital Course: admission hpi Chief Complaint: AMS 38 yo F with a pmhx of bipolar 2, etoh use disorder (sober x6 weeks, on vivitrol and anabuse), SUGGS, who presented to the ED by recommendation from addiction medicine due to altered mental status. Intermittent confusion and stumbling over words. Everything in slow motion. Was in the ED 2 days ago for hives and found to have elevated LFTs. Stopped Anabuse ?hive reaction, and gabapentin and lamotrigine due to LFTs. Currently on prednisone for hives. On Vivitrol and sober x6 weeks, no drug use. New raspy voice and SOB starting last night with mild chest pain, mild dizziness. No cough. Also new left lower quadrant pain since yesterday. worsening in severity, constant dull ache 5/10 with stabbing pains 7/10. + nausea, no constipation or diarrhea. 1 episode of brown vaginal discharge a few days ago, none since. no concern for STIs. Hospital course The patient presented with altered mental status and was seen two days prior for hives, which were attributed to Antabuse. At that time, she was also noted to have elevated liver function tests (LFTs), as detailed below. Hepatitis serology was negative, and a CT scan of the abdomen and pelvis showed fatty liver disease. She was observed overnight, and her LFTs are trending downward, as shown below. She was evaluated by a GI specialist, and an autoimmune hepatitis workup is in progress. Viral serology is negative, and LFTs are expected to continue improving. Repeat testing is planned on an outpatient basis within a week. Regarding the rash, likely caused by Antabuse, it has nearly resolved. She was treated with prednisone, which can be discontinued after 5 days. As for confusion: she has been lucid since being in the hospital and CT head unremarkable. Time Attestation Discharge Coordination Time (in mins): 30 Quality: Safe Use of Opioids Does Pt have an Active Cancer Diagnosis on the Problem List?: No Quality: Stroke Does the patient have a stroke diagnosis?: No Physical Exam Vital Signs: Vital Signs: Last Vital Signs Temp 98 F 02/11/24 06:45 Pulse 87 02/11/24 06:45 Resp 16 02/11/24 06:45 BP 118/59 L 02/11/24 06:45 Pulse Ox 98 02/11/24 06:45 O2 Del Method Room Air 02/11/24 06:45 BMI result Body Mass Index 44.1 DS: Data Data Completed and Pending Labs on day of discharge: Laboratory Results - last 24 hr 02/10/24 02/10/24 02/10/24 10:03 11:42 15:15 WBC 8.9 RBC 4.70 Hgb 14.7 Hct 41.5 MCV 88.3 MCH 31.3 MCHC 35.4 H RDW 12.3 Plt Count 224 MPV 8.9 L Immature Gran % (Auto) 0.6 H Neut % (Auto) 78.5 H Lymph % (Auto) 14.2 L [place] % (Auto) 5.8 Eos % (Auto) 0.8 Baso % (Auto) 0.1 Lymph # (Auto) 1.3 [place] # (Auto) 0.5 Eos # (Auto) 0.1 Baso # (Auto) 0.0 Abs Immat Gran (auto) 0.05 H Absolute Neuts (auto) 7.0 Absolute Nucleated RBC 0.000 Nucleated RBC % (auto) 0.0 PT 13.9 H INR 1.2 H Sodium 139 Potassium 3.7 Chloride 107 Carbon Dioxide 24 Anion Gap 12 BUN 7 L Creatinine 0.70 Estim Creat Clear Calc 129.4 Estimated GFR > 60 Random Glucose 102 Calcium 8.9 Magnesium 1.8 Iron TIBC % Saturation Unsat Iron Binding Ferritin Total Bilirubin 2.2 H GGT AST 601 H ALT 1078 H Alkaline Phosphatase 144 H Ammonia 40 Troponin I High Sens < 2.7 Total Protein 6.7 Albumin 3.8 Lipase 14 Urine Color Yellow Urine Appearance Clear Urine pH 6.5 Ur Specific [place] 1.010 Urine Protein Negative Urine Glucose (UA) Negative Urine Ketones Trace Urine Blood Negative Urine Nitrite Negative Ur Leukocyte Esterase Negative Salicylates < 5.0 L Urine Opiates Screen Not Detected Ur Buprenorphine Scrn Not Detected Ur Oxycodone Screen Not Detected Urine Methadone Screen Not Detected Urine Fentanyl Screen Not Detected Acetaminophen < 3 Ur Barbiturates Screen Not Detected Ur Phencyclidine Scrn Not Detected Ur Amphetamines Screen Not Detected U Benzodiazepines Scrn Not Detected Urine Cocaine Screen Not Detected U Marijuana (THC) Screen Not Detected Ethyl Alcohol < 10 Monoscreen Negative 02/11/24 02/11/24 06:23 06:24 WBC 9.0 RBC 4.07 L Hgb 12.6 Hct 36.1 L MCV 88.7 MCH 31.0 MCHC 34.9 RDW 12.2 Plt Count 198 MPV 9.6 Immature Gran % (Auto) 0.7 H Neut % (Auto) 78.0 H Lymph % (Auto) 14.0 L [place] % (Auto) 6.8 Eos % (Auto) 0.4 Baso % (Auto) 0.1 Lymph # (Auto) 1.3 [place] # (Auto) 0.6 Eos # (Auto) 0.0 Baso # (Auto) 0.0 Abs Immat Gran (auto) 0.06 H Absolute Neuts (auto) 7.0 Absolute Nucleated RBC 0.000 Nucleated RBC % (auto) 0.0 PT 12.9 H INR 1.1 Sodium 141 Potassium 3.3 Chloride 109 H Carbon Dioxide 24 Anion Gap 11 L BUN 8 L Creatinine 0.60 Estim Creat Clear Calc 151.0 Estimated GFR > 60 Random Glucose 137 H Calcium 8.8 Magnesium Iron 56 TIBC 181 L % Saturation 31 Unsat Iron Binding 125 Ferritin 325 H Total Bilirubin GGT 74 H AST ALT Alkaline Phosphatase Ammonia Troponin I High Sens Total Protein Albumin Lipase Urine Color Urine Appearance Urine pH Ur Specific [place] Urine Protein Urine Glucose (UA) Urine Ketones Urine Blood Urine Nitrite Ur Leukocyte Esterase Salicylates Urine Opiates Screen Ur Buprenorphine Scrn Ur Oxycodone Screen Urine Methadone Screen Urine Fentanyl Screen Acetaminophen Ur Barbiturates Screen Ur Phencyclidine Scrn Ur Amphetamines Screen U Benzodiazepines Scrn Urine Cocaine Screen U Marijuana (THC) Screen Ethyl Alcohol Monoscreen Discharge Plan Discharge Anticipated Discharge Date/Time: 02/11/24 09:22 Patient Disposition: Home, Self-Care Discharge Diagnosis: hives, acute hepatitis, altered mental status Referrals: Physician,None [Primary Care Provider] - 1 Week Discharge Medications: Continued gabapentin 100 mg capsule 100 mg PO BID PRN (Reason: anxiety) Qty: 60 0RF lamotrigine 100 mg tablet 100 mg PO DAILY Qty: 30 0RF Rx Instructions: start taking in 14 days once you have completed the 50mg daily dose Vivitrol 380 mg suspension,extended rel recon 380 mg IM Q4W Qty: 1 5RF Changed prednisone 20 mg tablet 20 mg PO DAILY 2 Days Qty: 2 0RF Rx Instructions: take 1 today, then 1 tomorrow Held celecoxib 100 mg capsule 100 mg PO DAILY Hold Instructions: Resume on 02/17/24. Discontinued disulfiram 250 mg tablet 250 mg PO DAILY Qty: 30 0RF Discharge Orders: Discharge Order (Routine); Ordered 02/11/24 Ordered By: Polo Adkins Diet: Advance to usual diet Activity on Discharge: As tolerated Stand Alone Forms: Patient Portal Discharge page Print Language: Macedonian Other Ambulatory Orders: Liver Panel (Routine) Timeframe: 20240213 Facility: [facility] - Location: Laboratory Ordered By: Polo Adkins Care Plan Goals: recovery from rash, altered mental status and acute hepatitis. Health Concerns: Acute hepatitis hives transient altered mental status alcohol dependency Plan of Treatment: take Benadryl as needed for itchyness take prednisone 20 mg today, and tomorrow hold celebrex for 1 week get liver lab done next week Assessment: see above
[2024-02-11 10:10] LABS: Alanine Aminotransferase 762 U/L (0-31); Albumin Level 3.2 g/dL (3.5-5.0); Alkaline Phosphatase 121 U/L (39-117); Aspartate Amino Transferase 236 U/L (5-31); Bilirubin Direct 0.2 mg/dL (0.0-0.5); Bilirubin Total 0.5 mg/dL (0.0-1.0); Total Protein 5.7 g/dL (6.5-8.0)
[2024-02-11 10:17] LABS: SARS-CoV-2 PCR Not Detected (Not Detect.)
--- NOTE | 2024-02-11 11:21 | MHC.CM.PN ---
PT DCD HOME SELF CARE
[2024-02-13 13:17] LABS: Mitochondrial Antibodies NEGATIVE (NEGATIVE)
[2024-02-13 14:39] LABS: CMV DNA PCR Qn Source PLASMA; CMV DNA Qn PCR NOT DETECTED Log IU/mL (NOT DETECTED); CMV DNA Qn Real Time PCR NOT DETECTED (NOT DETECTED)
[2024-02-15 10:28] LABS: Prot Elec - Albumin 3.2 g/dL (3.8-4.8); Prot Elec - Alpha1 0.3 g/dL (0.2-0.3); Prot Elec - Alpha2 0.5 g/dL (0.5-0.9); Prot Elec - Beta 1 0.3 g/dL (0.4-0.6); Prot Elec - Beta 2 0.3 g/dL (0.2-0.5); Prot Elec - Gamma 0.8 g/dL (0.8-1.7); Prot Elec - Total Protein 5.4 g/dL (6.1-8.1)
[2024-02-15 11:48] LABS: Anti Nuclear Antibody Pattern Nuclear, Speckled; Anti Nuclear Antibody Screen POSITIVE (NEGATIVE); Anti Nuclear Antibody Titer 1:40 titer
[2024-02-15 15:29] LABS: Smooth Muscle Antibody <20 U (<20)
== END 2024-02-11 12:48 | disposition home or self-care (01) ==
LOC: HO.ED 11:43 → HO.EDOVER 15:01 → HO.S3 19:50
PROVIDERS: Internal Medicine Gastroenterology; Physician Assistant; Admitting Provider Physician Assistant; Emergency Provider Student in an Organized Health Care Education/Training Program; Visit Provider Internal Medicine
DX: B17.9 Acute viral hepatitis, unspecified (principal); K75.81 Nonalcoholic steatohepatitis (NASH); F10.21 Alcohol dependence, in remission; F31.81 Bipolar II disorder; L50.0 Allergic urticaria; T50.6X5A Adverse effect of antidotes and chelating agents, initial encounter; Z20.822 Contact with and (suspected) exposure to COVID-19; Z79.899 Other long term (current) drug therapy
CPT/HCPCS: 36415; 70450; 71046; 74176; 80048; 80053; 80076; 80143; 80179; 80307; 81003; 82140; 82728; 82977; 83540; 83690; 83735; 84165; 84484; 85025; 85610; 86015; 86038; 86039; 86308; 86381; 87497; 87633; 93005; 99212; 99285; J1200; J1650; J2919

== ENCOUNTER → 2024-02-10 15:00 | Outpatient (BNV) | payer OTHER, SELFPAY | PROVIDERS: Admitting Provider Physician Assistant; Emergency Provider Student in an Organized Health Care Education/Training Program; Visit Provider Internal Medicine Gastroenterology | DX: R79.89 Other specified abnormal findings of blood chemistry (principal); F10.20 Alcohol dependence, uncomplicated | CPT/HCPCS: 99499 ==

== ENCOUNTER → 2024-02-10 15:00 | Outpatient (BNV) | payer OTHER, SELFPAY | PROVIDERS: Admitting Provider Physician Assistant; Emergency Provider Student in an Organized Health Care Education/Training Program; Visit Provider Physician Assistant | DX: R41.82 Altered mental status, unspecified (principal); R10.9 Unspecified abdominal pain; R06.02 Shortness of breath; R79.89 Other specified abnormal findings of blood chemistry | CPT/HCPCS: 99222; 99239 ==

== ENCOUNTER 2024-02-16 09:14 | Outpatient (AMB) | payer OTHER, SELFPAY ==
--- NOTE | 2024-02-16 09:23 | A.OFFVISCC_ITS ---
Vital Signs 02/16/24 09:24 Weight 229 lb 4 oz BP 140/80 H Blood Pressure Location Rt radial Position Sitting Respiration 19 Pulse 79 Pulse Oximetry (%) 98 Intake Visit Reasons: Check in w provider Allergies amoxicillin [AMOXICILLIN] Allergy (Unknown, Verified 02/10/24 09:59) HIVES cephalexin [From Keflex] Allergy (Verified 02/10/24 09:59) Unknown risperidone [From Risperdal] Allergy (Verified 02/10/24 09:59) Unknown fluoxetine [Prozac] Adverse Reaction (Unknown, Verified 02/10/24 09:59) rash - not sure disulfiram [From Antabuse] Adverse Reaction (Verified 02/11/24 10:32) Rash HPI HPI Check in w provider: Details: Patient presents for follow up stopped Disulfiram and Gabapentin continued Lamotrigine discussed re-starting gabapentin reports feeling overall better except for her anxiety labs to be completed after this visit PFSH Medical History (Updated 02/16/24 @ 00:02 by Magda Jorge) Alcohol use disorder, moderate, dependence Shortness of breath Alcohol abuse COVID-19 Social History (Updated 11/12/21 @ 07:24 by Adelina Veronica DO) Household Members: Spouse Housing: House Do you presently have visiting nurse or other home services: No Alcohol intake: current Patient Tobacco Use Status: Never used Tobacco Review of Systems Const Reports as per HPI Physical Exam Vital Signs: Last Vital Signs Pulse 79 02/16/24 09:24 Resp 19 02/16/24 09:24 BP 140/80 H 02/16/24 09:24 Pulse Ox 98 02/16/24 09:24 Const General: cooperative, healthy appearing, no acute distress and well groomed Orientation/consciousness: patient oriented x3 Limitations: no limitations Neuro General: patient oriented x3 Assessment & Plan Assessment & Plan (1) Bipolar 2 disorder: Code(s): F31.81 - Bipolar II disorder Category: Medical Plan: * continue lamotrigine 100mg * discussed case with Dr. Patel, who is now aware that patient never stopped taking Lamotrigine (2) Elevated LFTs: Code(s): R79.89 - Other specified abnormal findings of blood chemistry Category: Medical Plan: * labs reviewed with Dr. Patel * she would like repeat completed in a week and her office will rech out to patient to schedule follow up Medications: Changed From gabapentin 100 mg PO BID PRN 60 caps 0RF anxiety To gabapentin 100 mg PO TID PRN 90 caps 0RF anxiety
[2024-02-16 09:24] VITALS: BP 140/80; PULSE 79; RESP 19; O2SAT 98
== END 2024-02-16 09:42 | disposition home or self-care (01) ==
PROVIDERS: Visit Provider Nurse Practitioner Psychiatric/Mental Health
DX: F10.20 Alcohol dependence, uncomplicated (principal); F31.81 Bipolar II disorder
CPT/HCPCS: 99214

== ENCOUNTER 2024-02-16 09:14 | Outpatient (REF) | payer OTHER, SELFPAY ==
[2024-02-16 09:58] LABS: MANUAL DIFF FLAG NO
[2024-02-16 10:28] LABS: Basophils Percent Auto 0.3 % (0-2); Eosinophils Absolute Auto 0.5 X10*3/uL (0.0-0.4); Eosinophils Percent Auto 7.6 % (0-4); Hematocrit 41.2 % (37.0-47.0); Hemoglobin 14.1 g/dl (12.0-16.0); Imm Gran Abs Auto 0.03 X10*3/uL (0.00-0.03); Imm Gran Pct Auto 0.5 % (0.0-0.4); Lymphocytes Absolute Auto 1.3 X10*3/uL (1.2-4.9); Lymphocytes Percent Auto 20.9 % (20-40); Mean Corpuscular HGB Conc 34.2 g/dl (31.0-35.0); Mean Corpuscular Hemoglobin 30.8 pg (27.0-33.0); Mean Platelet Volume 9.1 fL (9.4-12.3); Monocytes Absolute Auto 0.4 X10*3/uL (0.1-1.2); Monocytes Percent Auto 5.5 % (2-11); Neutrophils Absolute Auto 4.1 x10*3/uL (2.0-8.3); Neutrophils Percent Auto 65.2 % (45-73); Platelet Count 268 X10*3/uL (160-400); Red Blood Count 4.58 X10*6/uL (4.20-5.50); Red Cell Distribution Width 12.4 % (11.0-16.0); White Blood Count 6.4 X10*3/uL (4.8-10.8)
[2024-02-16 10:55] LABS: Alanine Aminotransferase 762 U/L (0-31); Albumin Level 3.8 g/dL (3.5-5.0); Alkaline Phosphatase 135 U/L (39-117); Anion Gap 11 (12-20); Aspartate Amino Transferase 361 U/L (5-31); Bilirubin Direct 0.3 mg/dL (0.0-0.5); Bilirubin Total 0.7 mg/dL (0.0-1.0); Blood Urea Nitrogen 10 mg/dL (9-16); Calcium 9.4 mg/dL (8.4-10.2); Carbon Dioxide 26 mmol/L (22-29); Chloride 107 mmol/L (96-108); Estimated Glomerular Filt Rate > 60; Glucose Random 94 mg/dL (60-115); Potassium 3.8 mmol/L (3.3-5.1); Sodium 140 mmol/L (135-145); Total Protein 6.8 g/dL (6.5-8.0)
== END 2024-02-16 09:15 | disposition home or self-care (01) ==
LOC: HO.LAB 09:14
PROVIDERS: Nurse Practitioner Psychiatric/Mental Health; Absent Provider Internal Medicine
DX: F10.20 Alcohol dependence, uncomplicated (principal); R79.89 Other specified abnormal findings of blood chemistry; F31.81 Bipolar II disorder
CPT/HCPCS: 36415; 80053; 80076; 82248; 85025; 99212

== ENCOUNTER 2024-02-23 09:14 | Outpatient (REF) | payer OTHER, SELFPAY ==
[2024-02-23 10:29] LABS: Prothrombin Time 11.5 SEC (10.9-12.4)
[2024-02-23 11:06] LABS: Alanine Aminotransferase 221 U/L (0-31); Albumin Level 3.9 g/dL (3.5-5.0); Alkaline Phosphatase 94 U/L (39-117); Aspartate Amino Transferase 83 U/L (5-31); Bilirubin Direct 0.2 mg/dL (0.0-0.5); Bilirubin Total 0.5 mg/dL (0.0-1.0); Total Protein 6.9 g/dL (6.5-8.0)
== END 2024-02-23 09:15 | disposition home or self-care (01) ==
LOC: HO.HMGCLDS 09:14
PROVIDERS: Visit Provider Internal Medicine Gastroenterology
DX: R79.89 Other specified abnormal findings of blood chemistry (principal)
CPT/HCPCS: 36415; 80076; 85610

== ENCOUNTER → 2024-03-02 09:11 | Outpatient (BNVA) | payer OTHER, SELFPAY | PROVIDERS: Visit Provider Internal Medicine Gastroenterology ==

== ENCOUNTER 2024-03-08 09:09 | Outpatient (AMB) | payer OTHER, SELFPAY ==
--- NOTE | 2024-03-08 09:17 | MHC.AM.SUB ---
Intake Visit Reasons: MAT Office Allergies amoxicillin [AMOXICILLIN] Allergy (Unknown, Verified 03/02/24 09:15) HIVES cephalexin [From Keflex] Allergy (Verified 03/02/24 09:15) Unknown risperidone [From Risperdal] Allergy (Verified 03/02/24 09:15) Unknown fluoxetine [Prozac] Adverse Reaction (Unknown, Verified 03/02/24 09:15) rash - not sure disulfiram [From Antabuse] Adverse Reaction (Verified 03/02/24 09:15) Rash HPI HPI MAT Office: Details: Patient presents for follow up for AUD Many members in household have been sick with strp throat and pneumonia Mood has been inconsistent for the last week --?due to illness Recently followed up with GI LFTs continue to decrease reviewed lifestyle changes PCP appt nex month phone therapy tuesday PFSH Medical History (Updated 03/08/24 @ 20:55 by Chica Felton, [employer]) Alcohol use disorder, moderate, dependence Shortness of breath Alcohol abuse COVID-19 Surgical History (Updated 03/02/24 @ 09:33 by Chica Parker) Hx of section Hx of shoulder surgery Hx of right knee surgery Hx of left knee surgery Family History (Updated 03/02/24 @ 09:35 by Chica Parker) Mother Cervical ca Father Diabetes Kidney disease Sleep apnea Thyroid disease Social History Household Members: Spouse Housing: House Do you presently have visiting nurse or other home services: No Alcohol intake: current Patient Tobacco Use Status: Never used Tobacco Review of Systems Const Reports as per HPI Physical Exam Const General: cooperative and well groomed Orientation/consciousness: patient oriented x3 Limitations: no limitations Neuro General: patient oriented x3 Assessment & Plan Assessment & Plan (1) Alcohol use disorder, moderate, dependence: Code(s): F10.20 - Alcohol dependence, uncomplicated Category: Medical Plan: continue medicaitons as prescribed LFTS being followed by GI (2) Bipolar 2 disorder: Code(s): F31.81 - Bipolar II disorder Category: Medical Plan: continue lamotrgine follow up 4 weeks Medications: Refilled gabapentin 100 mg PO TID PRN 90 caps 0RF anxiety
== END 2024-03-08 11:03 | disposition home or self-care (01) ==
PROVIDERS: Visit Provider Nurse Practitioner Psychiatric/Mental Health
DX: F10.20 Alcohol dependence, uncomplicated (principal); F31.81 Bipolar II disorder
CPT/HCPCS: 99214

== ENCOUNTER → 2024-03-08 09:09 | Outpatient (BNVA) | payer OTHER, SELFPAY | PROVIDERS: Visit Provider Nurse Practitioner Psychiatric/Mental Health | DX: F10.20 Alcohol dependence, uncomplicated (principal); F31.81 Bipolar II disorder; Z79.899 Other long term (current) drug therapy | CPT/HCPCS: 99212 ==

== ENCOUNTER 2024-04-04 09:35 | Outpatient (AMB) | payer OTHER, SELFPAY ==
--- NOTE | 2024-04-04 09:44 | A.OFFVISCC_ITS ---
Intake Visit Reasons: MAT Office Allergies amoxicillin [AMOXICILLIN] Allergy (Unknown, Verified 03/02/24 09:15) HIVES cephalexin [From Keflex] Allergy (Verified 03/02/24 09:15) Unknown risperidone [From Risperdal] Allergy (Verified 03/02/24 09:15) Unknown fluoxetine [Prozac] Adverse Reaction (Unknown, Verified 03/02/24 09:15) rash - not sure disulfiram [From Antabuse] Adverse Reaction (Verified 03/02/24 09:15) Rash HPI HPI MAT Office: Details: Patient presents for follow up Reporting mood has been challenging anxiety med has been less effective not drinking, has been eating more requesting therapy referral as her current provider is not as helpful as she initially was Review of Systems Const Reports as per HPI, Reports increased appetite, Reports lethargy and Reports weight gain Psych Reports anxiety, Reports difficulty concentrating and Reports irritability Physical Exam Const General: cooperative and anxious Nutritional Appearance: overweight Orientation/consciousness: patient oriented x3 Limitations: no limitations Neuro General: patient oriented x3 Psych Appearance: well kempt Speech and movement: Normal speech and movement present Affect: normal affect Attitude: cooperative Thought process: Normal thought process present Thought content: Normal thought content present Insight: Good insight present (Psych) Judgement: Good judgement present (Psych) Assessment & Plan Assessment & Plan (1) Alcohol use disorder, moderate, dependence: Code(s): F10.20 - Alcohol dependence, uncomplicated Category: Medical Plan: * relapse prevention discussion * GI follow up in Jun (2) Bipolar 2 disorder: Code(s): F31.81 - Bipolar II disorder Category: Medical Plan: * increase lamictal to 150mg * continue gabapentin TID --can take 200mg if she feels it would be helpful 1x/day Orders: Referrals Behavioral Health Referral F10.20 - Alcohol dependence, uncomplicated, F31.81 - Bipolar II disorder Medications: New lamotrigine 150 mg PO DAILY 30 tabs 0RF Refilled gabapentin 100 mg PO TID PRN 90 caps 0RF anxiety Discontinued lamotrigine Discontinued Reason: Doctor's Order 100 mg PO DAILY 90 tabs 0RF PFSH Medical History (Updated 03/08/24 @ 20:55 by Chica Felton CNP) Alcohol use disorder, moderate, dependence Shortness of breath Alcohol abuse COVID-19 Surgical History (Updated 03/02/24 @ 09:33 by Chica Parker) Hx of section Hx of shoulder surgery Hx of right knee surgery Hx of left knee surgery Family History (Updated 03/02/24 @ 09:35 by Chica Parker) Mother Cervical ca Father Diabetes Kidney disease Sleep apnea Thyroid disease Social History Household Members: Spouse Housing: House Do you presently have visiting nurse or other home services: No Alcohol intake: current Patient Tobacco Use Status: Never used Tobacco
== END 2024-04-04 10:10 | disposition home or self-care (01) ==
PROVIDERS: Visit Provider Nurse Practitioner Psychiatric/Mental Health
DX: F10.20 Alcohol dependence, uncomplicated (principal); F31.81 Bipolar II disorder
CPT/HCPCS: 99214

== ENCOUNTER → 2024-04-04 09:35 | Outpatient (BNVA) | payer OTHER, SELFPAY | PROVIDERS: Visit Provider Nurse Practitioner Psychiatric/Mental Health | DX: F10.20 Alcohol dependence, uncomplicated (principal); F31.81 Bipolar II disorder | CPT/HCPCS: 99212 ==

== ENCOUNTER 2024-04-19 14:05 | Outpatient (AMB) | payer OTHER, SELFPAY ==
--- NOTE | 2024-04-19 14:07 | MHC.PC.OV ---
Vital Signs 04/19/24 14:08 Height 5 ft 2 in Weight 245 lb 8 oz BMI 44.9 BP 130/74 Blood Pressure Location Lt brachial Position Sitting Pulse 83 Pulse Source Pulse Oximeter Pulse Oximetry (%) 97 Oxygen Delivery Method Room Air Intake Visit Reasons: establish care Intake Note: Patient is a new patient here to establish care for Bipolar 2 disorder, Hernia disc, Spine issues, Anxiety, Depression, Endometriosis, Obesity, PMDD. Transferring care from unknown. Medical records have been requested and have not received. Pt decline flu shot today. Manager Audio Required: No Recreation Superintendent: Not Required per policy Accompanied by: Self / Same As Patient Allergies amoxicillin [AMOXICILLIN] Allergy (Unknown, Verified 04/19/24 14:24) HIVES cephalexin [From Keflex] Allergy (Verified 04/19/24 14:24) Unknown risperidone [From Risperdal] Allergy (Verified 04/19/24 14:24) Unknown fluoxetine [Prozac] Adverse Reaction (Unknown, Verified 04/19/24 14:24) rash - not sure disulfiram [From Antabuse] Adverse Reaction (Verified 04/19/24 14:24) Rash Medication List - Last Reconciled 04/19/24 by Marianne Hernandez PA-C celecoxib 100 mg PO DAILY gabapentin 100 mg PO TID PRN lamotrigine 150 mg PO DAILY Tobacco use date assessed: 04/19/24 Dental Screening Dental Screen Date: 04/19/24 Did you have a dental visit in the last 12 months?: No Did you have a dental problem in the last 6 months where you did not have access to dental care?: No Was dental information given to patient?: No HPI establish care HPI Details 39-year-old female with past medical history bipolar 2 disorder, elevated LFTs and alcohol use disorder coming to the office for the 1st time. In review of the notes, patient follows with [facility] increase Lamictal to 150 mg and advised to continue on gabapentin and referred to behavioral health for bipolar 2 management. Patient also follows with [facility] GI last seen 03/05/2024 elevated LFTs likely due to drug-induced hepatitis ordered for blood work and we will follow up in 3 months. Patient was also hospitalized in January 2024 due to altered mental status found to have elevated LFTs CT showed fatty liver disease discharged home and advised to follow up with GI. Patient has several concerns today. She states she has not seen a PCP in over 6 years and has not followed with a business office manager in over 4 years. She does have a history of a breast lump on the right side and did previously have a biopsy with a clip placement with around 5 years ago and has not had follow up on this. She does mentioned she struggles with bipolar as well as premenstrual dysphoric disorder and is being managed by her comprehensive Care provider and was also recently referred to [facility]. She has been having new onset difficultly concentrating occasional forgetfulness as well. She does also mentioned bilateral knee pain and is receiving injections for this. Lastly she would like to try an injection for weight loss as she has been working on diet and exercise without good improvement. [facility] Medical History (Updated 04/19/24 @ 15:26 by Marianne Hernandez PA-C) Alcohol use disorder, moderate, dependence Shortness of breath Alcohol abuse COVID-19 Surgical History (Updated 04/19/24 @ 14:36 by Marianne Hernandez PA-C) S/P endometrial ablation Hx of section Hx of shoulder surgery Hx of right knee surgery Hx of left knee surgery Family History (Updated 04/19/24 @ 14:18 by DIONY Merrill) Mother Cervical ca Father Diabetes Kidney disease Sleep apnea Thyroid disease Other Mental health disorder Substance use disorder Social History Household Members: Spouse Housing: House Do you presently have visiting nurse or other home services: No Alcohol intake: former Patient Tobacco Use Status: Never used Tobacco e-Cigarette/Vaping Use: Never Used Second Hand Smoke Exposure: No service: No Current occupational status: employed 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 1. Little interest or pleasure in doing things: nearly every day 2. Feeling down, depressed, or hopeless: more than half the days 3. Trouble falling or staying asleep, or sleeping too much: nearly every day 4. Feeling tired or having little energy: nearly every day 5. Poor appetite or overeating: nearly every day 6. Feeling bad about yourself - or that you are a failure or have let yourself or your family down: nearly every day 7. Trouble concentrating on things, such as reading the newspaper or watching television: nearly every day 8. Moving or speaking so slowly that other people could have noticed. Or the opposite - being so fidgety or restless that you have been moving around a lot more than usual: several days 9. Thoughts that you would be better off or of hurting yourself in some way: not at all Total score: 21 Depression Screening Interpretation: Positive Depression Screening Follow-up: Existing condition and In treatment Depression Screening Done: Yes Source: Developed by Drs. Orlin Marroquin, Karen Gutierrez, Td Clifford and colleagues, with an educational bisi from [employer]. Thrive Questionnaire Date Thrive assessed: 04/19/24 I am a: Patient What is your living situation today?: I have a steady place to live Within the past 12 months, did the food you bought not last and you didn't have the money to get more?: Never true Within the past 12 months, did you worry whether your food would run out before you got money to buy more?: Never true Do you have trouble paying for medicines?: No Do you have trouble getting transportation to medical appointments?: No Do you have trouble paying your heating and electricity bill?: No Do you have trouble taking care of your child, family member or friend?: No Do you have trouble with day-to-day activities such as bathing, preparing meals, shopping, managing finances, etc.?: Yes Are you currently unemployed and looking for a job?: No Are you interested in more education?: No Please select the resources that you would like help with: None Currently or been in a relationship where the following occur: No concerns reported THRIVE Score: 0 AUDIT C Alcohol Use Questionnaire (AUDIT-C) 1. How often do you have a drink containing alcohol?: Never Total Score: 0 MARY KATE-7 AMB Questionnaire MARY KATE-7 Date MARY KATE - 7 assessed: 04/19/24 Feeling nervous, anxious, or on edge: 3 = Nearly every day Not being able to stop or control worryin = Nearly every day Worrying too much about different things: 3 = Nearly every day Trouble relaxin = Nearly every day Being so restless that it is hard to sit still: 1 = Several days Becoming easily annoyed or irritable: 3 = Nearly every day Feeling afraid as if something awful might happen: 0 = Not at all Total MARY KATE-7 score (0-4 normal; 5-9 mild; 10-14 moderate; 15-21 severe): 16 Source: Developed by Drs. Orlin Marroquin, Karen Gutierrez, Td Clifford and colleagues, with an educational bisi from [employer]. MARY KATE-7 Assessment Billing MARY KATE-7 Assessment Tool: MARY KATE-7 Assessment 63716 Review of Systems Const Denies body aches, Denies chills, Denies fever(s), Denies headache(s), Denies poor appetite and Reports weight gain Eyes Reports no additional complaints ENT Denies dizziness and Denies headache(s) Card Denies chest pain, Denies lightheadedness and Denies dyspnea Resp Denies cough and Denies dyspnea GI Denies diarrhea, Denies nausea and Denies vomiting Details: Heavy menses Musc Details: Bilateral knee pain Reports abnormal gait and Reports back pain Skin/Breast Details: Right breast mass occasionally tender to palpation Neuro Details: Difficulty concentrating and occasional forgetfulness Reports abnormal gait, Denies dizziness and Denies headache(s) Psych Reports no additional complaints Physical exam (Primary Care) BMI result Body Mass Index 44.9 Tobacco/Smoking Status: Tobacco use Status Patient Tobacco Use Status Never used Tobacco 02/11/24 10:45 Depression Screening Interpretation: Positive Depression Screening Follow-up: Existing condition and In treatment Currently or been in a relationship where the following occur: No concerns reported Const General: cooperative, healthy appearing, comfortable and no acute distress Orientation/consciousness: patient oriented x3 HENMT Head: Yes normocephalic Ears: hearing grossly normal bilaterally General nose exam: Normal external nose present Eyes General: appearance normal, both eyes and all related structures Conjunctivae: conjunctivae normal Neck Neck: Yes full ROM and Yes no lymphadenopathy Chest Chest/axillae images: 1. Breast mass tender to palpation Resp Effort & Inspection: normal respiratory effort Auscultation: clear to auscultation bilaterally, no crackles, no rales, no rhonchi and no wheezes Cardio Rate: regular rate Rhythm: regular rhythm Skin General skin exam: no rashes or lesions noted Neuro General: patient oriented x3 Gait exam (Neuro): Normal gait present Extrem General: Yes normal to inspection, Yes full ROM and No edema Psych Affect: normal affect Attitude: cooperative Insight: Good insight present (Psych) Judgement: Good judgement present (Psych) Coding Level of Care Code New Pt Level 4 (49876) Diagnoses Alcohol use disorder, moderate, dependence F10.20 Elevated LFTs R79.89 Hepatitis K75.9 Bipolar 2 disorder F31.81 Endometriosis N80.9 PMDD (premenstrual dysphoric disorder) F32.81 Morbid obesity with BMI of 40.0-44.9, adult E66.01; Z68.41 Breast mass, right N63.10 Bilateral knee pain M25.561; M25.562 Additional Codes MARY KATE-7 Assessment Billing - MARY KATE-7 Assessment Tool: MARY KATE-7 Assessment 10251 ([id number]) Assessment & Plan Assessment & Plan (1) Alcohol use disorder, moderate, dependence: Code(s): F10.20 - Alcohol dependence, uncomplicated Category: Medical Plan: Continue to follow with comprehensive Care Clinic. (2) Elevated LFTs: Code(s): R79.89 - Other specified abnormal findings of blood chemistry Category: Medical Plan: Thought to have autoimmune hepatitis by GI and has been following with them outpatient. (3) Hepatitis: Code(s): K75.9 - Inflammatory liver disease, unspecified Category: Medical Plan: Continue to follow up with GI and avoid liver irritants such as Tylenol and alcohol. (4) Bipolar 2 disorder: Code(s): F31.81 - Bipolar II disorder Category: Medical Plan: Currently on lamotrigine being managed by her comprehensive Care provider and recently referred to [facility] for further management. (5) Endometriosis: Code(s): N80.9 - Endometriosis, unspecified Category: Medical Plan: Patient has a history of endometrial ablation for endometriosis. States her menses have been worsening and has not seen a gynecology provider in over 6 years. Referral placed for gynecology. (6) PMDD (premenstrual dysphoric disorder): Code(s): F32.81 - Premenstrual dysphoric disorder Category: Medical Plan: Referral placed to [facility] and gynecology at this time. (7) Morbid obesity with BMI of 40.0-44.9, adult: Code(s): E66.01 - Morbid (severe) obesity due to excess calories; Z68.41 - Body mass index [BMI] 40.0-44.9, adult Category: Medical Plan: Healthy diet and regular exercise is encouraged. We will trial Wegovy injections starting at 0.25 mg discussed side effects and contraindications this medication with the patient. We will have lab work done 2 weeks after initiation of the therapy to monitor for kidney and liver function. Follow up in 2 months. (8) Breast mass, right: Code(s): N63.10 - Unspecified lump in the right breast, unspecified quadrant Category: Medical Plan: Patient complaining of painful breast mass which has been present for several years previously biopsied and clipped and has not had follow up. Ordered for diagnostic ultrasound and mammogram for further evaluation. Breast mass was palpated on exam in the 9 o'clock position 1 cm from the nipple and did have tenderness to palpation. No overlying skin changes. We will also request the notes from her last business office manager to see if General surgery referral is appropriate. Referral placed to gynecology at this time (9) Bilateral knee pain: Code(s): M25.561 - Pain in right knee; M25.562 - Pain in left knee Category: Medical Plan: Patient complaining of bilateral knee pain worse in the right and has been seeing a provider for regular cortisone injections. Plan Ordered for updated blood work and we will follow up in 2 months or sooner if new problems arise or if existing problems worsen. This note was constructed using voice recognition software. While every effort has been made to ensure accuracy and certified hand therapist, still areas may have been included sometimes these areas may affect the content or meeting of the given symptoms. Total time spent caring for the patient today was 30 minutes. This includes time spent before the visit reviewing the chart, time spent during the visit, and time spent after the visit and documentation. Orders: Orders Free T4 (Free Thyroxine) Today E66.01 - Morbid (severe) obesity due to excess calories, Z00.00 - Encounter for general adult medical examination without abnormal findings, Z68.41 - Body mass index [BMI] 40.0-44.9, adult Lipid Panel Today E66.01 - Morbid (severe) obesity due to excess calories, E78.00 - Pure hypercholesterolemia, unspecified, Z68.41 - Body mass index [BMI] 40.0-44.9, adult MM tomosynthesis diagnostic BI Today N63.10 - Unspecified lump in the right breast, unspecified quadrant Complete Blood Count Auto Diff Today E66.01 - Morbid (severe) obesity due to excess calories, Z00.00 - Encounter for general adult medical examination without abnormal findings, Z68.41 - Body mass index [BMI] 40.0-44.9, adult Comprehensive Met. Panel Today E66.01 - Morbid (severe) obesity due to excess calories, Z00.00 - Encounter for general adult medical examination without abnormal findings, Z68.41 - Body mass index [BMI] 40.0-44.9, adult TSH reflex Free T4 Today E66.01 - Morbid (severe) obesity due to excess calories, Z00.00 - Encounter for general adult medical examination without abnormal findings, Z68.41 - Body mass index [BMI] 40.0-44.9, adult US breast RT complete Today N63.10 - Unspecified lump in the right breast, unspecified quadrant Referrals COUNTING MACHINE OPERATOR Referral F32.81 - Premenstrual dysphoric disorder, N80.9 - Endometriosis, unspecified, Z12.4 - Encounter for screening for malignant neoplasm of cervix Medications: New semaglutide (weight loss) (Wegovshara) administer weeks 1 through 4 of therapy 0.25 mg (0.5 mL) subcut QWEEK 2 mL 0RF E66.01 - Morbid (severe) obesity due to excess calories, Z68.41 - Body mass index [BMI] 40.0-44.9, adult
[2024-04-19 14:08] VITALS: BP 130/74; PULSE 83; O2SAT 97; BMI 44.9
== END 2024-04-19 15:02 | disposition home or self-care (01) ==
DX: F31.81 Bipolar II disorder (principal); F10.20 Alcohol dependence, uncomplicated; Z68.41 Body mass index [BMI] 40.0-44.9, adult; E66.01 Morbid (severe) obesity due to excess calories; R79.89 Other specified abnormal findings of blood chemistry; K75.9 Inflammatory liver disease, unspecified; N80.9 Endometriosis, unspecified; F32.81 Premenstrual dysphoric disorder; N63.11 Unspecified lump in the right breast, upper outer quadrant; M25.561 Pain in right knee; M25.562 Pain in left knee

== ENCOUNTER → 2024-04-19 14:05 | Outpatient (BNVA) | payer OTHER, SELFPAY | DX: F10.20 Alcohol dependence, uncomplicated (principal); R79.89 Other specified abnormal findings of blood chemistry; K75.9 Inflammatory liver disease, unspecified; F31.81 Bipolar II disorder; N80.9 Endometriosis, unspecified; E66.01 Morbid (severe) obesity due to excess calories; Z68.41 Body mass index [BMI] 40.0-44.9, adult; N63.10 Unspecified lump in the right breast, unspecified quadrant; M25.561 Pain in right knee; M25.562 Pain in left knee | CPT/HCPCS: 96127; 99202 ==

== ENCOUNTER 2024-04-20 10:34 | Outpatient (AMB) | payer OTHER, SELFPAY ==
--- NOTE | 2024-04-20 10:46 | A.OFFVISCC_ITS ---
Intake Visit Reasons: check in w provider Allergies amoxicillin [AMOXICILLIN] Allergy (Unknown, Verified 04/19/24 14:24) HIVES cephalexin [From Keflex] Allergy (Verified 04/19/24 14:24) Unknown risperidone [From Risperdal] Allergy (Verified 04/19/24 14:24) Unknown fluoxetine [Prozac] Adverse Reaction (Unknown, Verified 04/19/24 14:24) rash - not sure disulfiram [From Antabuse] Adverse Reaction (Verified 04/19/24 14:24) Rash HPI HPI check in w provider: Details: Patient presents for follow up Reporting 2 weeks with increased dose of Lamictal and has not noted a difference Follow up for medication increase was not for another couple of weeks Feeling overwhelmed, unable to focus, increasingly irritable She is verbalizing goal to address focus and memory first and believes she has ADHD Discussed that while this may be the case, mood stabilization is important and may also help with focus once addressed properly Saw PCP yesterday Continues to abstain from alcohol Still enjoying her job --feels clear and productive while at work Review of Systems Const Reports as per HPI Physical Exam Const General: cooperative, healthy appearing and anxious Orientation/consciousness: patient oriented x3 Limitations: no limitations Neuro General: patient oriented x3 Psych Appearance: well kempt Speech and movement: Clear speech present Affect: Anxious affect present Attitude: cooperative Thought process: Normal thought process present and Circumstantial thought process present Thought content: Normal thought content present Insight: Fair insight present (Psych) Judgement: Good judgement present (Psych) Assessment & Plan Assessment & Plan (1) Bipolar 2 disorder: Code(s): F31.81 - Bipolar II disorder Category: Medical Plan: * labs (last LFTs in February) * Consider augmentation with Latuda or Abilify if Latuda not covered by insurance * follow up appt in place * referral to [facility] sent at last appt--patient will follow up today. (2) Alcohol use disorder, moderate, dependence: Code(s): F10.20 - Alcohol dependence, uncomplicated Category: Medical Plan: * relapse prevention discussion [facility] Medical History (Updated 04/19/24 @ 15:26 by Marianne Hernandez PA-C) Alcohol use disorder, moderate, dependence Shortness of breath Alcohol abuse COVID-19 Surgical History (Updated 04/19/24 @ 14:36 by Marianne Hernandez PA-C) S/P endometrial ablation Hx of section Hx of shoulder surgery Hx of right knee surgery Hx of left knee surgery Family History (Updated 04/19/24 @ 14:18 by DIONY Merrill) Mother Cervical ca Father Diabetes Kidney disease Sleep apnea Thyroid disease Other Mental health disorder Substance use disorder Social History (Updated 04/19/24 @ 14:19 by DIONY Merrill) Household Members: Spouse Housing: House Do you presently have visiting nurse or other home services: No Alcohol intake: former Patient Tobacco Use Status: Never used Tobacco e-Cigarette/Vaping Use: Never Used Second Hand Smoke Exposure: No service: No Current occupational status: employed 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
== END 2024-04-20 11:08 | disposition home or self-care (01) ==
PROVIDERS: Visit Provider Nurse Practitioner Psychiatric/Mental Health
DX: F10.20 Alcohol dependence, uncomplicated (principal); F31.81 Bipolar II disorder
CPT/HCPCS: 99214

== ENCOUNTER → 2024-04-20 10:34 | Outpatient (BNVA) | payer OTHER, SELFPAY | PROVIDERS: Visit Provider Nurse Practitioner Psychiatric/Mental Health | DX: F31.81 Bipolar II disorder (principal); F10.20 Alcohol dependence, uncomplicated | CPT/HCPCS: 99212 ==

== ENCOUNTER 2024-04-20 14:38 | Outpatient (REF) | payer OTHER, SELFPAY ==
[2024-04-20 16:39] LABS: Alanine Aminotransferase 22 U/L (0-31); Albumin Level 4.1 g/dL (3.5-5.0); Alkaline Phosphatase 74 U/L (39-117); Aspartate Amino Transferase 18 U/L (5-31); Bilirubin Direct 0.2 mg/dL (0.0-0.5); Bilirubin Total 0.5 mg/dL (0.0-1.0)
[2024-04-20 17:01] LABS: Folate 6.6 ng/mL (> or = 4.0); Vitamin B12 525 pg/mL (200-900)
== END 2024-04-20 14:39 | disposition home or self-care (01) ==
LOC: HO.HMGCLDS 14:38
PROVIDERS: Visit Provider Internal Medicine Gastroenterology
DX: R79.89 Other specified abnormal findings of blood chemistry (principal)
CPT/HCPCS: 36415; 80076; 82306; 82607; 82746

== ENCOUNTER → 2024-05-10 13:13 | Outpatient (BNVA) | payer OTHER, SELFPAY | PROVIDERS: Visit Provider Nurse Practitioner Psychiatric/Mental Health ==

== ENCOUNTER 2024-05-11 08:59 | Outpatient (AMB) | payer OTHER, SELFPAY ==
--- NOTE | 2024-05-11 08:59 | MHC.AM.SUB ---
Intake Visit Reasons: MAT Tele Allergies amoxicillin [AMOXICILLIN] Allergy (Unknown, Verified 04/19/24 14:24) HIVES cephalexin [From Keflex] Allergy (Verified 04/19/24 14:24) Unknown risperidone [From Risperdal] Allergy (Verified 04/19/24 14:24) Unknown fluoxetine [Prozac] Adverse Reaction (Unknown, Verified 04/19/24 14:24) rash - not sure disulfiram [From Antabuse] Adverse Reaction (Verified 04/19/24 14:24) Rash HPI HPI MAT Tele: Details: Patient presents for follow up via telehealth Reporting increasing anxiety, more episodes of what feels like panic Would like gabapenting 200mg TID Discussed adding Abilify to current regimen--reviewed dosing, side effects and goals of treatment Review of Systems Const Reports as per HPI Telehealth Telehealth Telehealth Platform: Telephone Location of provider rendering services: practice address Location of patient: address on file Patient Identification confirmed using: Name, : Yes Telehealth method: voice only Patient verbally consented to treatment: Yes Patient verbally consented to billing insurance company: Yes Minutes spent on Phone/Video with Pt.: 15 Assessment & Plan Assessment & Plan (1) Alcohol use disorder, moderate, dependence: Code(s): F10.20 - Alcohol dependence, uncomplicated Category: Medical Plan: relapse prvention discussion (2) Bipolar 2 disorder: Code(s): F31.81 - Bipolar II disorder Category: Medical Plan: abilify 2mg QHS follow up 3 weeks Medications: New aripiprazole (Abilify) 2 mg PO BEDTIME 30 tabs 0RF Refilled lamotrigine 150 mg PO DAILY 90 tabs 0RF Discontinued semaglutide (weight loss) (Wegovy) administer weeks 1 through 4 of therapy Discontinued Reason: Patient no longer taking 0.25 mg (0.5 mL) subcut QWEEK 2 mL 0RF E66.01 - Morbid (severe) obesity due to excess calories, Z68.41 - Body mass index [BMI] 40.0-44.9, adult [facility] Medical History (Updated 04/19/24 @ 15:26 by Marianne Hernandez PA-C) Alcohol use disorder, moderate, dependence Shortness of breath Alcohol abuse COVID-19 Surgical History (Updated 04/19/24 @ 14:36 by Marianne Hernandez PA-C) S/P endometrial ablation Hx of section Hx of shoulder surgery Hx of right knee surgery Hx of left knee surgery Family History (Updated 04/19/24 @ 14:18 by DIONY Merrill) Mother Cervical ca Father Diabetes Kidney disease Sleep apnea Thyroid disease Other Mental health disorder Substance use disorder Social History (Updated 04/19/24 @ 14:19 by DIONY Merrill) Household Members: Spouse Housing: House Do you presently have visiting nurse or other home services: No Alcohol intake: former Patient Tobacco Use Status: Never used Tobacco e-Cigarette/Vaping Use: Never Used Second Hand Smoke Exposure: No service: No Current occupational status: employed 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
== END 2024-05-11 09:09 | disposition home or self-care (01) ==
PROVIDERS: Visit Provider Nurse Practitioner Psychiatric/Mental Health
DX: F10.20 Alcohol dependence, uncomplicated (principal); F31.81 Bipolar II disorder
CPT/HCPCS: 99214

== ENCOUNTER → 2024-05-11 08:59 | Outpatient (BNVA) | payer OTHER, SELFPAY | PROVIDERS: Visit Provider Nurse Practitioner Psychiatric/Mental Health ==

== ENCOUNTER 2024-05-15 08:49 | Outpatient (REF) | payer OTHER, SELFPAY ==
[2024-05-15 09:52] LABS: MANUAL DIFF FLAG NO
[2024-05-15 10:09] LABS: Basophils Percent Auto 0.3 % (0-2); Eosinophils Absolute Auto 0.1 X10*3/uL (0.0-0.4); Eosinophils Percent Auto 1.1 % (0-4); Hematocrit 38.6 % (37.0-47.0); Hemoglobin 13.9 g/dl (12.0-16.0); Imm Gran Abs Auto 0.02 X10*3/uL (0.00-0.03); Imm Gran Pct Auto 0.3 % (0.0-0.4); Lymphocytes Absolute Auto 1.4 X10*3/uL (1.2-4.9); Mean Corpuscular Hemoglobin 30.8 pg (27.0-33.0); Mean Corpuscular Volume 85.4 fL (80.0-98.0); Mean Platelet Volume 9.6 fL (9.4-12.3); Monocytes Absolute Auto 0.5 X10*3/uL (0.1-1.2); Monocytes Percent Auto 7.5 % (2-11); Neutrophils Absolute Auto 4.2 x10*3/uL (2.0-8.3); Neutrophils Percent Auto 68.8 % (45-73); Platelet Count 201 X10*3/uL (160-400); Red Blood Count 4.52 X10*6/uL (4.20-5.50); White Blood Count 6.1 X10*3/uL (4.8-10.8)
[2024-05-15 10:49] LABS: Alanine Aminotransferase 29 U/L (0-31); Albumin Level 3.9 g/dL (3.5-5.0); Alkaline Phosphatase 84 U/L (39-117); Anion Gap 9 (12-20); Aspartate Amino Transferase 30 U/L (5-31); Bilirubin Total 0.6 mg/dL (0.0-1.0); Blood Urea Nitrogen 8 mg/dL (9-16); Calcium 8.6 mg/dL (8.4-10.2); Carbon Dioxide 24 mmol/L (22-29); Chloride 111 mmol/L (96-108); Cholesterol 152 mg/dL (<200); Estimated Glomerular Filt Rate > 60; Glucose Random 104 mg/dL (60-115); HDL Cholesterol 52 mg/dL (>40); LDL Cholesterol Calculated 79 mg/dL (<100); Potassium 3.5 mmol/L (3.3-5.1); Sodium 140 mmol/L (135-145); Total Protein 6.7 g/dL (6.5-8.0); Triglycerides 106 mg/dL (<150)
[2024-05-15 10:55] LABS: Free T4 (Free Thyroxine) 0.84 ng/dL (0.71-1.85); TSH reflex Free T4 2.03 uIU/mL (0.32-4.0)
== END 2024-05-15 08:50 | disposition home or self-care (01) ==
LOC: HO.HMGCLDS 08:49
DX: Z00.00 Encounter for general adult medical examination without abnormal findings (principal); E78.00 Pure hypercholesterolemia, unspecified; E66.01 Morbid (severe) obesity due to excess calories; Z68.41 Body mass index [BMI] 40.0-44.9, adult
CPT/HCPCS: 36415; 80053; 80061; 84439; 84443; 85025

== ENCOUNTER 2024-05-30 15:45 | Outpatient (AMB) | payer OTHER, SELFPAY ==
--- NOTE | 2024-05-30 15:57 | MHC.AM.SUB ---
Intake Visit Reasons: MAT Office Allergies amoxicillin [AMOXICILLIN] Allergy (Unknown, Verified 04/19/24 14:24) HIVES cephalexin [From Keflex] Allergy (Verified 04/19/24 14:24) Unknown risperidone [From Risperdal] Allergy (Verified 04/19/24 14:24) Unknown fluoxetine [Prozac] Adverse Reaction (Unknown, Verified 04/19/24 14:24) rash - not sure disulfiram [From Antabuse] Adverse Reaction (Verified 04/19/24 14:24) Rash HPI HPI MAT Office: Details: Patient presents for follow up for AUD and Bipolar disorder Brighter affect Taking gabapentin TID Started Abilify 2mg at bedtime Panic has stopped, but still some anxiety throughout the day Reports an episode of high energy days followed by 2 days of feeling very tired--low motivation not related to her period denies any sedation with gabapentin [facility] --on waitlist Review of Systems Const Reports as per HPI and Reports no additional complaints Physical Exam Const General: cooperative, healthy appearing and well groomed Orientation/consciousness: patient oriented x3 Limitations: no limitations Neuro General: patient oriented x3 Psych Appearance: well kempt Speech and movement: Normal speech and movement present Affect: normal affect Attitude: cooperative Thought process: Normal thought process present and Circumstantial thought process present Thought content: Normal thought content present Insight: Fair insight present (Psych) Judgement: Good judgement present (Psych) [facility] Medical History (Updated 04/19/24 @ 15:26 by Marianne Hernandez PA-C) Alcohol use disorder, moderate, dependence Shortness of breath Alcohol abuse COVID-19 Surgical History (Updated 04/19/24 @ 14:36 by Marianne Hernandez PA-C) S/P endometrial ablation Hx of section Hx of shoulder surgery Hx of right knee surgery Hx of left knee surgery Family History (Updated 04/19/24 @ 14:18 by DIONY Merrill) Mother Cervical ca Father Diabetes Kidney disease Sleep apnea Thyroid disease Other Mental health disorder Substance use disorder Social History (Updated 04/19/24 @ 14:19 by DIONY Merrill) Household Members: Spouse Housing: House Do you presently have visiting nurse or other home services: No Alcohol intake: former Patient Tobacco Use Status: Never used Tobacco e-Cigarette/Vaping Use: Never Used Second Hand Smoke Exposure: No service: No Current occupational status: employed 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
== END 2024-05-30 16:19 | disposition home or self-care (01) ==
PROVIDERS: Visit Provider Nurse Practitioner Psychiatric/Mental Health
DX: F10.20 Alcohol dependence, uncomplicated (principal); F31.81 Bipolar II disorder
CPT/HCPCS: 99214

== ENCOUNTER → 2024-05-30 15:45 | Outpatient (BNVA) | payer OTHER, SELFPAY | PROVIDERS: Visit Provider Nurse Practitioner Psychiatric/Mental Health | DX: F10.20 Alcohol dependence, uncomplicated (principal); F31.81 Bipolar II disorder; Z51.81 Encounter for therapeutic drug level monitoring; Z79.899 Other long term (current) drug therapy | CPT/HCPCS: 99212 ==

== ENCOUNTER 2024-06-02 09:12 | Outpatient (AMB) | payer OTHER, SELFPAY ==
--- NOTE | 2024-06-02 09:26 | MHC.OFFWIV ---
Intake Vital Signs 06/02/24 09:28 Height 5 ft 2 in Weight 245 lb BMI 44.8 BP 130/76 Blood Pressure Location Lt brachial Position Sitting Pulse 71 Pulse Source Pulse Oximeter Temp 98.3 F Temp Source Oral Pulse Oximetry (%) 100 Oxygen Delivery Method Room Air Intake Visit Reasons: EP Sore throat, runny nose, ear pain Intake Note: pt is here for for sore throat, runny nose, ear pain since yesterday. positive covid at home test Patient Tobacco Use Status: Never used Tobacco Allergies amoxicillin [AMOXICILLIN] Allergy (Unknown, Verified 06/02/24 09:29) HIVES cephalexin [From Keflex] Allergy (Verified 06/02/24:) Unknown risperidone [From Risperdal] Allergy (Verified 06/02/24:) Unknown fluoxetine [Prozac] Adverse Reaction (Unknown, Verified 06/02/24:) rash - not sure disulfiram [From Antabuse] Adverse Reaction (Verified 06/02/24:) Rash Medication List - Last Reconciled 06/02/24 by Jaiden Espinoza MD aripiprazole (Abilify) 2 mg PO BEDTIME celecoxib 100 mg PO DAILY gabapentin 200 mg (2 x 100 mg) PO TID lamotrigine 150 mg PO DAILY nirmatrelvir-ritonavir 300 mg (150 mg x 2)-100 mg (Paxlovid) take TWO 150 mg tablets of nirmatrelvir with ONE 100 mg tablet of ritonavir twice daily for 5 days PO semaglutide (weight loss) (Wegovy) 0.5 mg (0.5 mL) subcut QWEEK Do you need a note to return to daycare/school/sports/work: No HPI EP Sore throat, runny nose, ear pain HPI Details Multiple symptoms including headache, sore throat, runny/stuffy nose, cough and chest congestion. Feverish but has not had a measured fever. [facility] Medical History (Updated 06/02/24 @ 10:22 by Jaiden Espinoza MD) Alcohol use disorder, moderate, dependence Shortness of breath Alcohol abuse COVID-19 Surgical History (Updated 04/19/24 @ 14:36 by Marianne Hernandez PA-C) S/P endometrial ablation Hx of section Hx of shoulder surgery Hx of right knee surgery Hx of left knee surgery Family History (Updated 04/19/24 @ 14:18 by DIONY Merrill) Mother Cervical ca Father Diabetes Kidney disease Sleep apnea Thyroid disease Other Mental health disorder Substance use disorder Social History (Updated 04/19/24 @ 14:19 by DIONY Merrill) Household Members: Spouse Housing: House Do you presently have visiting nurse or other home services: No Alcohol intake: former Patient Tobacco Use Status: Never used Tobacco e-Cigarette/Vaping Use: Never Used Second Hand Smoke Exposure: No service: No Current occupational status: employed 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 Cognitive needs: No Hearing needs: No Vision needs: Yes (Glasses) Review of Systems Const Reports chills, Reports fatigue, Reports fever(s), Reports headache(s) and Denies weakness ENT Denies dizziness and Reports headache(s) Card Denies chest pain, Denies lightheadedness, Denies dyspnea and Denies other (Palpitations) Resp Reports cough, Denies dyspnea, Denies wheezing and Denies other ( shortness of breath) Musc Denies numbness and Denies tingling Neuro Denies dizziness, Reports headache(s), Denies numbness, Denies tingling, Denies paresthesias and Denies weakness Psych Denies anxiety and Denies depression Endo Reports fatigue Aller/Immun Denies wheezing Physical Exam Vital Signs: Last Vital Signs Temp 98.3 F 06/02/24 09:28 Pulse 71 06/02/24 09:28 BP 130/76 06/02/24 09:28 Pulse Ox 100 06/02/24 09:28 Oxygen Delivery Method Room Air 06/02/24 09:28 BMI result Body Mass Index 44.8 Const General: no acute distress and well developed Nutritional Appearance: well nourished Orientation/consciousness: patient oriented x3 HEENT Other: TMs normal bilaterally Posterior pharynx with mild erythema and vesicles. No patchy exudates Had significant nasal discharge. No pus, no blood. Head: Yes normocephalic and Yes atraumatic Eyes General: appearance normal, both eyes and all related structures Pupils: Equal, round and reactive pupils present EOM: EOMs intact bilaterally Neck Other: Mild anterior cervical chain lymphadenopathy Resp Other: Coarse breath sounds but otherwise clear to auscultation Effort & Inspection: normal respiratory effort Auscultation: clear to auscultation bilaterally Cardio Rate: regular rate Rhythm: regular rhythm Heart sounds: S1 normal heart sound present, S2 normal heart sound present, no gallops, no murmurs and no rubs Neuro General: patient oriented x3 and gait normal Cranial nerves: Yes Equal, round and reactive pupils present Psych Affect: normal affect Results AMB Rapid Strep AMB Rapid Strep Negative Last Edit by Nam Harmon CMA on 06/02/24 09:46 Results Reviewed Results Reviewed: Laboratory Last Values Strep Scn [facility] Negative 06/02/24 09:46 Assessment & Plan Assessment & Plan (1) Viral illness: Code(s): B34.9 - Viral infection, unspecified Plan: Viral illness There is no antibiotic medication for viruses. They must run their course. Most average 5-7 days but 7-10 days is not uncommon and up to 14 days is still possible. A cough is often the last symptom to resolve and this can last for weeks in some cases. Rest Hydrate well - Drink plenty of fluids. Especially water. Tylenol or ibuprofen for muscle aches, headache, fever/discomfort Can use [id number] medications for cough such as Delsym or DayQuil. Prescription cough medicines have been shown to be no better. At end of visit, patient notes that she took a COVID test last night which was positive. Likely COVID. Will send confirmation swab checking for COVID/flu/RSV. Starting her on Paxlovid Orders: Orders SARS-CoV2/FLU/RSV Today B34.9 - Viral infection, unspecified, Z20.822 - Contact with and (suspected) exposure to COVID-19 AMB Rapid Strep Screen Today Z13.9 - Encounter for screening, unspecified Medications: New nirmatrelvir-ritonavir 300 mg (150 mg x 2)-100 mg (Paxlovid) take TWO 150 mg tablets of nirmatrelvir with ONE 100 mg tablet of ritonavir twice daily for 5 days PO 30 ea 0RF Coding Level of Care Code Est Pt Level 3 (21367) Diagnoses Viral illness B34.9
[2024-06-02 09:28] VITALS: BP 130/76; PULSE 71; TEMP 36.8; O2SAT 100; BMI 44.8
== END 2024-06-02 11:53 | disposition home or self-care (01) ==
LOC: HO.HMCWIC 09:12
PROVIDERS: Visit Provider Family Medicine
DX: B34.9 Viral infection, unspecified (principal); Z13.9 Encounter for screening, unspecified

== ENCOUNTER 2024-06-02 09:12 | Outpatient (REF) | payer OTHER, SELFPAY ==
[2024-06-02 13:15] LABS: Influenza A PCR NEGATIVE (Negative); Influenza B PCR NEGATIVE (Negative); Resp Syncy Virus RNA Qual PCR NEGATIVE (Negative); SARS COV2 PCR INHOUSE POSITIVE (Negative)
== END 2024-06-02 09:13 | disposition home or self-care (01) ==
LOC: HO.LNP 09:12
PROVIDERS: Visit Provider Family Medicine
DX: B34.9 Viral infection, unspecified (principal); Z20.822 Contact with and (suspected) exposure to COVID-19
CPT/HCPCS: 0241U; 87880; 99212

== ENCOUNTER → 2024-06-13 14:00 | Outpatient (BNV) | payer OTHER, SELFPAY | PROVIDERS: Visit Provider Internal Medicine | DX: N64.4 Mastodynia (principal); R92.333 Mammographic heterogeneous density, bilateral breasts; R92.321 Mammographic fibroglandular density, right breast; Z97.8 Presence of other specified devices | CPT/HCPCS: 76642; 77062; 77066 ==

== ENCOUNTER 2024-06-13 14:11 | Outpatient (REF) | payer OTHER, SELFPAY ==
--- NOTE | ~2024-06-13 | MM_ITS ---
EXAMINATION: MM DIAGNOSTIC DIGITAL BREAST TOMOSYNTHESIS, BILATERAL Limited bilateral ultrasound. CLINICAL INFORMATION: Right breast palpable lump and pain upper outer breast patient feels has increased from prior. COMPARISON: Mammography: Comparison is made with relevant prior exams. TECHNIQUE: Digital breast mammography with tomosynthesis is performed in both the craniocaudal and mediolateral oblique views along with computer-aided detection (CAD). Bilateral Limited ultrasound. FINDINGS: The breasts are heterogeneously dense, which may obscure small masses (ACR BI-RADS breast composition Category c). Left: There are no significant masses, abnormal calcifications, or other abnormalities. Right: Marker clip in the retroareolar region. BB marker and triangular marker in the upper outer quadrant denoting site of pain and palpable lump without underlying abnormality. No suspicious calcifications or other abnormal findings. Targeted color Doppler ultrasound thickening in the bilateral retroareolar regions demonstrates normal fibroglandular breast tissue. Targeted color Doppler ultrasound scanning in the upper outer quadrant of the right breast in the area of the patient's pain and palpable lump demonstrates normal fibronodular breast tissue. Results are provided to the patient at time of visit by the technologist. MM/MM tomosynthesis diagnostic BI IMPRESSION: 1. No mammographic or sonographic abnormality in the bilateral retroareolar regions to account for the nipple inversion and nipple discharge. 2. No mammographic or sonographic abnormality to account for the patient's upper outer quadrant right breast pain and upper outer quadrant right breast lump. If clinical concern persists breast MRI could be considered for further evaluation. Breast MRI would need to be ordered by the patient's providing clinician. ASSESSMENT: BI-RADS BI-RADS 1 - Negative RECOMMENDATION: 1 year F/U This patient's information was entered into a reminder system with a target due date for their next mammogram. Electronically signed by: Raisa Welch DO 06/13/2024 03:54 PM MARCELO
== END 2024-06-13 14:12 | disposition home or self-care (01) ==
LOC: HO.MAMMO 14:11
DX: N63.15 Unspecified lump in the right breast, overlapping quadrants (principal); N64.4 Mastodynia
CPT/HCPCS: 76642; 77062; 77066

== ENCOUNTER → 2024-06-20 13:53 | Outpatient (BNVA) | payer OTHER, SELFPAY | DX: E66.01 Morbid (severe) obesity due to excess calories (principal); Z68.41 Body mass index [BMI] 40.0-44.9, adult; F10.20 Alcohol dependence, uncomplicated; F31.81 Bipolar II disorder | CPT/HCPCS: 96127; 99212 ==

== ENCOUNTER 2024-06-22 16:00 | Outpatient (AMB) | payer OTHER, SELFPAY ==
--- NOTE | 2024-06-22 16:11 | A.OFFPSYCH_ITS ---
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: No Allergies amoxicillin [AMOXICILLIN] Allergy (Unknown, Verified 06/20/24 14:07) HIVES cephalexin [From Keflex] Allergy (Verified 06/20/24 14:07) Unknown risperidone [From Risperdal] Allergy (Verified 06/20/24 14:07) Unknown fluoxetine [Prozac] Adverse Reaction (Unknown, Verified 06/20/24 14:07) rash - not sure disulfiram [From Antabuse] Adverse Reaction (Verified 06/20/24 14:07) Rash Medication List - Last Reconciled 06/22/24 by Maria D Benson APRN aripiprazole (Abilify) 2 mg PO BEDTIME celecoxib 100 mg PO DAILY gabapentin 200 mg (2 x 100 mg) PO TID lamotrigine 150 mg PO DAILY semaglutide (weight loss) (Wegovy) 1 mg (0.5 mL) subcut Q7D HPI- Psychiatric Chief Complaint: consultation HPI Narrative: 39-year-old female referred by addiction medicine for treatment of bipolar 2 disorder and symptoms of inattention, distractibility,difficulty finishing tasks due to distraction. Pt feels ADHD symptoms are interfering with functioning. pt is in remission from alcohol use. She continues to see Chica Felton in addiction medicine Pt reports she did well in school but was always on the go, busy, playing sports. she constantly turned in her homework and other assignments late. 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 She did well academically despite this; she graduated from and went on to finish BS in business mgt and acct. 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 she often can't sit still. PHQ9= 15 and GAD7= 10 ADHD self report scale = 18( anyting above 13 is likely ADHD) Past Psychiatric History: outpt therapist several over past 20 yrs. she is currently on wait list t [facility] Subjective Subjective Subjective Medication Compliance: Yes Side effects from medications: No Review of Systems Medical Review of Systems: unchanged Mental Status Exam Mental Status Exam Patient Appearance: Well Grooomed and Appropriate Patient Orientation: Person, Place, Time and Situation Level of Consciousness: Awake Patient Behavior: Appropriate and Cooperative Mood Description: Appropriate and Anxious Affect Description: Appropriate and Anxious Patient Cognition Impaired: No Ability to Follow Directions: Good Speech Pattern: Clear and Appropriate Memory Description: Episodic Impaired Hallucinations: None Delusions: Not Present Thought Process: Distracted Thought Content: positive for Preoccupation Judgement: Fair Assessment and Plan Assessment & Plan (1) ADHD (attention deficit hyperactivity disorder), inattentive type: Status: Acute Code(s): F90.0 - Attention-deficit hyperactivity disorder, predominantly inattentive type (2) Alcohol use disorder, moderate, in early remission, dependence: Status: Acute Code(s): F10.21 - Alcohol dependence, in remission (3) Bipolar 2 disorder: Status: Acute Code(s): F31.81 - Bipolar II disorder Plan plan is to increase lamictal to 200mg daily send for labs to rule out medical etiology for memory problems trial of vyvanse 20mg daily - discussed se of vyvanse due to not able to abuse Medications: New lamotrigine (Lamictal) 200 mg PO DAILY 90 tabs 1RF lisdexamfetamine (Vyvanse) Partial Fill upon patient request. 20 mg PO QAM 30 caps 0RF Refilled gabapentin 200 mg (2 x 100 mg) PO TID 180 caps 0RF anxiety aripiprazole (Abilify) 2 mg PO BEDTIME 30 tabs 0RF Discontinued lamotrigine Discontinued Reason: Doctor's Order 150 mg PO DAILY 90 tabs 0RF Orders: Orders Ferritin 06/22/24 F90.0 - Attention-deficit hyperactivity disorder, predominantly inattentive type Vitamin B1 06/22/24 F90.0 - Attention-deficit hyperactivity disorder, predominantly inattentive type TSH reflex Free T4 06/22/24 F90.0 - Attention-deficit hyperactivity disorder, predominantly inattentive type Vitamin D 25-OH Total 06/22/24 E55.9 - Vitamin D deficiency, unspecified IRON PROFILE 06/22/24 F90.0 - Attention-deficit hyperactivity disorder, predominantly inattentive type Vitamin B12 and Folate 06/22/24 F90.0 - Attention-deficit hyperactivity disorder, predominantly inattentive type Counseling and coordination of Care Pt. Self Management counseling: Maintenance-social rhythm, Mod caffeine/ETOH intake, Nutrition education and improvement, Sleep hygiene and General coping skills Medication management counseling: Effectiveness, Side effects, Dosing range, Duration, Drug interaction and Adherence Diagnosis and Prognosis Counseling: Accuracy of diagnosis, Prognosis over time, Impact of diagnosis on life functions, Impact of family relationship, Problematic behaviors secondary to diagnosis and Adequacy of current interventions Details: I spent 75 minutes reviewing the record, seeing the patient and documenting in the medical record. Counseling provided to the patient/caregiver as outlined below. Addressed patient/caregiver concerns regarding current medication regime including effective adherence. Addressed patient/caregiver concerns regarding diagnosis and prognosis including accuracy of diagnosis, prognosis over time, impact of diagnosis. Addressed patient/caregiver concerns regarding impact of recent stressors. PFS Medical History Alcohol use disorder, moderate, dependence Shortness of breath Alcohol abuse COVID-19 Surgical History S/P endometrial ablation Hx of section Hx of shoulder surgery Hx of right knee surgery Hx of left knee surgery Family History Mother Cervical ca Father Diabetes Kidney disease Sleep apnea Thyroid disease Other Mental health disorder Substance use disorder Social History Household Members: Spouse Housing: House Do you presently have visiting nurse or other home services: No Alcohol intake: former Patient Tobacco Use Status: Never used Tobacco e-Cigarette/Vaping Use: Never Used Second Hand Smoke Exposure: No service: No Current occupational status: employed 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 Grew up in area with [place] she is youngest of 4 sibs. Substance History: etoh heavily n past - now 1 x a cynthia. pt reports tobacco puches currently Trauma History: denies Coding Level of Care Code Psych Diag Eval w/Med (31956) Diagnoses ADHD (attention deficit hyperactivity disorder), inattentive type F90.0 Alcohol use disorder, moderate, in early remission, dependence F10.21 Bipolar 2 disorder F31.81
== END 2024-06-22 17:21 | disposition home or self-care (01) ==
LOC: HO.HOP 16:00
PROVIDERS: Visit Provider Clinical Nurse Specialist Psychiatric/Mental Health
DX: F90.0 Attention-deficit hyperactivity disorder, predominantly inattentive type (principal); F10.21 Alcohol dependence, in remission; F31.81 Bipolar II disorder
CPT/HCPCS: 90792

== ENCOUNTER → 2024-06-22 16:00 | Outpatient (BNVA) | payer OTHER, SELFPAY | PROVIDERS: Visit Provider Clinical Nurse Specialist Psychiatric/Mental Health | DX: F90.0 Attention-deficit hyperactivity disorder, predominantly inattentive type (principal); F10.21 Alcohol dependence, in remission; F31.81 Bipolar II disorder; E55.9 Vitamin D deficiency, unspecified; Z71.89 Other specified counseling | CPT/HCPCS: 90792 ==

== ENCOUNTER 2024-07-13 15:39 | Outpatient (AMB) | payer OTHER, SELFPAY ==
--- NOTE | 2024-09-17 15:12 | A.OFFPSYCH_ITS ---
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 Allergies amoxicillin [AMOXICILLIN] Allergy (Unknown, Verified 06/20/24 14:07) HIVES cephalexin [From Keflex] Allergy (Verified 06/20/24 14:07) Unknown risperidone [From Risperdal] Allergy (Verified 06/20/24 14:07) Unknown fluoxetine [Prozac] Adverse Reaction (Unknown, Verified 06/20/24 14:07) rash - not sure disulfiram [From Antabuse] Adverse Reaction (Verified 06/20/24 14:07) Rash Medication List - Last Reconciled 09/17/24 by Maria D Benson APRN aripiprazole (Abilify) 2 mg PO BEDTIME celecoxib 100 mg PO DAILY dextroamphetamine-amphetamine 20 mg ER (Adderall XR) 20 mg PO QAM gabapentin 200 mg (2 x 100 mg) PO TID lamotrigine (Lamictal) 200 mg PO DAILY semaglutide (weight loss) (Wegovy) 2.4 mg (0.75 mL) subcut QWEEK thiamine HCl (vitamin B1) 100 mg PO DAILY HPI- Psychiatric Chief Complaint: consultation HPI Narrative: date of service is 07/13/24 pt seen for follow up re: depression, adhd tolerating vyvanse Past Psychiatric History: outpt therapist several over past 20 yrs. she is currently on wait list t [facility] Subjective Subjective Subjective Medication Compliance: Yes Side effects from medications: No Review of Systems Medical Review of Systems: unchanged Mental Status Exam Mental Status Exam Patient Appearance: Well Grooomed Patient Orientation: Person, Place and Time Level of Consciousness: Awake Patient Behavior: Appropriate Mood Description: Calm Patient Cognition Impaired: No Ability to Follow Directions: Good Speech Pattern: Clear Hallucinations: None Delusions: Not Present Thought Process: Intact Thought Content: positive for Intact Judgement: Good Assessment and Plan Assessment & Plan (1) ADHD (attention deficit hyperactivity disorder), inattentive type: Status: Acute Code(s): F90.0 - Attention-deficit hyperactivity disorder, predominantly inattentive type (2) MARY KATE (generalized anxiety disorder): Status: Acute Code(s): F41.1 - Generalized anxiety disorder Medications: New lisdexamfetamine (Vyvanse) Partial Fill upon patient request. 30 mg PO QAM 30 caps 0RF Discontinued semaglutide (weight loss) Discontinued Reason: Patient no longer taking 1 mg (0.5 mL) subcut Q7D 2 mL 0RF lisdexamfetamine Partial Fill upon patient request. Discontinued Reason: No Longer Medically Relevant 20 mg PO QAM 30 caps 0RF Counseling and coordination of Care Medication management counseling: Effectiveness, Side effects, Dosing range, Duration, Drug interaction and Adherence Diagnosis and Prognosis Counseling: Accuracy of diagnosis, Prognosis over time and Adequacy of current interventions Details: I spent 35 minutes reviewing the record, seeing the patient and documenting in the medical record. Counseling provided to the patient/caregiver as outlined below. Addressed patient/caregiver concerns regarding current medication regime including effective adherence. Addressed patient/caregiver concerns regarding diagnosis and prognosis including accuracy of diagnosis, prognosis over time, impact of diagnosis. Addressed patient/caregiver concerns regarding impact of recent stressors. [facility] Medical History Alcohol use disorder, moderate, dependence Shortness of breath Alcohol abuse COVID-19 Surgical History S/P endometrial ablation Hx of section Hx of shoulder surgery Hx of right knee surgery Hx of left knee surgery Family History Mother Cervical ca Father Diabetes Kidney disease Sleep apnea Thyroid disease Other Mental health disorder Substance use disorder Social History Household Members: Spouse Housing: House Do you presently have visiting nurse or other home services: No Alcohol intake: former Patient Tobacco Use Status: Never used Tobacco e-Cigarette/Vaping Use: Never Used Second Hand Smoke Exposure: No service: No Current occupational status: employed 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 Grew up in area with M& F she is youngest of 4 sibs. Substance History: etoh heavily n past - now 1 x a cynthia. pt reports tobacco puches currently Trauma History: denies Coding Level of Care Code Est Pt Level 4 (26268) Diagnoses ADHD (attention deficit hyperactivity disorder), inattentive type F90.0 MARY KATE (generalized anxiety disorder) F41.1
== END 2024-07-13 15:51 | disposition home or self-care (01) ==
LOC: HO.HOP 15:39
PROVIDERS: Visit Provider Clinical Nurse Specialist Psychiatric/Mental Health
DX: F90.0 Attention-deficit hyperactivity disorder, predominantly inattentive type (principal); F41.1 Generalized anxiety disorder
CPT/HCPCS: 99214

== ENCOUNTER → 2024-07-13 15:39 | Outpatient (BNVA) | payer OTHER, SELFPAY | PROVIDERS: Visit Provider Clinical Nurse Specialist Psychiatric/Mental Health | DX: F90.0 Attention-deficit hyperactivity disorder, predominantly inattentive type (principal); F41.1 Generalized anxiety disorder | CPT/HCPCS: 99212 ==

== ENCOUNTER 2024-07-24 15:39 | Outpatient (AMB) | payer OTHER, SELFPAY ==
--- NOTE | 2024-07-24 15:55 | A.OFFPSYCH_ITS ---
Intake Intake Visit Reasons: f/u consultation Help Desk Consultant Required: No Allergies amoxicillin [AMOXICILLIN] Allergy (Unknown, Verified 06/20/24 14:07) HIVES cephalexin [From Keflex] Allergy (Verified 06/20/24 14:07) Unknown risperidone [From Risperdal] Allergy (Verified 06/20/24 14:07) Unknown fluoxetine [Prozac] Adverse Reaction (Unknown, Verified 06/20/24 14:07) rash - not sure disulfiram [From Antabuse] Adverse Reaction (Verified 06/20/24 14:07) Rash Medication List - Last Reconciled 07/24/24 by Maria D Benson APRN aripiprazole (Abilify) 2 mg PO BEDTIME celecoxib 100 mg PO DAILY gabapentin 200 mg (2 x 100 mg) PO TID lamotrigine (Lamictal) 200 mg PO DAILY lisdexamfetamine (Vyvanse) 30 mg PO QAM semaglutide (weight loss) (Wegovy) 1.7 mg (0.75 mL) subcut QWEEK HPI- Psychiatric Chief Complaint: f/u consultation HPI Narrative: pt reports worsening symptoms with increased vyvanse. she is over-focusing on unimportant things; getting distracted by unimportant things more often. she has extreme dry mouth after starting the increase. she also has headaches.She also reports chest tightness but no illness or cough. She has not gotten labs done yet. Past Psychiatric History: outpt therapist several over past 20 yrs. she is currently on wait list t [facility] Subjective Subjective Subjective Medication Compliance: Yes Side effects from medications: Yes Review of Systems Medical Review of Systems: unchanged Mental Status Exam Mental Status Exam Patient Appearance: Well Grooomed and Appropriate Patient Orientation: Person, Place, Time and Situation Level of Consciousness: Awake, Appropriate and Alert Patient Behavior: Appropriate and Cooperative Mood Description: Anxious Affect Description: Anxious Patient Cognition Impaired: No Ability to Follow Directions: Good Speech Pattern: Clear Memory Description: Intact Hallucinations: None Delusions: Not Present Thought Process: Intact Thought Content: positive for Intact Judgement: Good Assessment and Plan Assessment & Plan (1) ADHD (attention deficit hyperactivity disorder), inattentive type: Status: Acute Code(s): F90.0 - Attention-deficit hyperactivity disorder, predominantly inattentive type (2) Bipolar 2 disorder: Status: Acute Code(s): F31.81 - Bipolar II disorder Plan stop vyvanse obtain EKG and lab work alhaji retrun in 3 weeks Medications: Discontinued lisdexamfetamine (Vyvanse) Partial Fill upon patient request. Discontinued Reason: Doctor's Order 30 mg PO QAM 30 caps 0RF Orders: Orders ECG 12 lead EKG Today F90.0 - Attention-deficit hyperactivity disorder, predominantly inattentive type Comprehensive Met. Panel Today F10.21 - Alcohol dependence, in remission Complete Blood Count Man Dif Today F90.0 - Attention-deficit hyperactivity disorder, predominantly inattentive type Counseling and coordination of Care Details: I spent [] minutes reviewing the record, seeing the patient and documenting in the medical record. Counseling provided to the patient/caregiver as outlined below. Addressed patient/caregiver concerns regarding current medication regime including effective adherence. Addressed patient/caregiver concerns regarding diagnosis and prognosis including accuracy of diagnosis, prognosis over time, impact of diagnosis. Addressed patient/caregiver concerns regarding impact of recent stressors. [facility] Medical History Alcohol use disorder, moderate, dependence Shortness of breath Alcohol abuse COVID-19 Surgical History S/P endometrial ablation Hx of section Hx of shoulder surgery Hx of right knee surgery Hx of left knee surgery Family History Mother Cervical ca Father Diabetes Kidney disease Sleep apnea Thyroid disease Other Mental health disorder Substance use disorder Social History Household Members: Spouse Housing: House Do you presently have visiting nurse or other home services: No Alcohol intake: former Patient Tobacco Use Status: Never used Tobacco e-Cigarette/Vaping Use: Never Used Second Hand Smoke Exposure: No service: No Current occupational status: employed 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 Grew up in area with M& [employer] she is youngest of 4 sibs. Substance History: etoh heavily n past - now 1 x a cynthia. pt reports tobacco puches currently Trauma History: denies Coding Level of Care Code Est Pt Level 4 (77528) Diagnoses ADHD (attention deficit hyperactivity disorder), inattentive type F90.0 Bipolar 2 disorder F31.81
== END 2024-07-24 16:08 | disposition home or self-care (01) ==
LOC: HO.HOP 15:39
PROVIDERS: Visit Provider Clinical Nurse Specialist Psychiatric/Mental Health
DX: F90.0 Attention-deficit hyperactivity disorder, predominantly inattentive type (principal); F31.81 Bipolar II disorder
CPT/HCPCS: 99214

== ENCOUNTER → 2024-07-24 15:39 | Outpatient (BNVA) | payer OTHER, SELFPAY | PROVIDERS: Visit Provider Clinical Nurse Specialist Psychiatric/Mental Health | DX: F90.0 Attention-deficit hyperactivity disorder, predominantly inattentive type (principal); F31.81 Bipolar II disorder | CPT/HCPCS: 99212 ==

== ENCOUNTER → 2024-07-30 15:42 | Outpatient (REF) | payer OTHER, SELFPAY ==
--- NOTE | 2024-07-30 15:47 | ECG_ITS ---
Test Reason : TIGHTNESS IN CHEST ,SOB Blood Pressure : */* mmHG Vent. Rate : 67 BPM Atrial Rate : 67 BPM P-R Int : 142 ms QRS Dur : 96 ms QT Int : 392 ms P-R-T Axes : 9 78 45 degrees QTcB Int : 414 ms Normal sinus rhythm Normal ECG When compared with ECG of 10-Feb-2024 15:05, No significant change was found Referred By: Maria D Benson Electronically Signed By: Caleb Albright
[2024-07-30 16:18] LABS: Baso%MD 0.3 %; Eos%MD 1.5 %; Hematocrit 39.6 % (37.0-47.0); Hemoglobin 14.4 g/dl (12.0-16.0); IG%MD 0.3 %; Lymph%MD 21.2 %; Mean Corpuscular HGB Conc 36.4 g/dl (31.0-35.0); Mean Corpuscular Hemoglobin 32.1 pg (27.0-33.0); Mean Corpuscular Volume 88.4 fL (80.0-98.0); Mean Platelet Volume 9.6 fL (9.4-12.3); Mono%MD 6.4 %; Neut%MD 70.3 %; Platelet Count 245 X10*3/uL (160-400); Red Blood Count 4.48 X10*6/uL (4.20-5.50); Red Cell Distribution Width 12.2 % (11.0-16.0); White Blood Count 9.1 X10*3/uL (4.8-10.8)
[2024-07-30 17:16] LABS: Alanine Aminotransferase 54 U/L (0-31); Albumin Level 4.3 g/dL (3.5-5.0); Alkaline Phosphatase 74 U/L (39-117); Anion Gap 12 (12-20); Aspartate Amino Transferase 35 U/L (5-31); Bilirubin Total 0.7 mg/dL (0.0-1.0); Blood Urea Nitrogen 5 mg/dL (9-16); Calcium 9.4 mg/dL (8.4-10.2); Carbon Dioxide 26 mmol/L (22-29); Chloride 107 mmol/L (96-108); Estimated Glomerular Filt Rate > 60; Glucose Random 76 mg/dL (60-115); Iron 101 mcg/dL (30-160); Percent Iron Saturation 39 % (15-50); Potassium 3.6 mmol/L (3.3-5.1); Sodium 141 mmol/L (135-145); Total Iron Binding Capacity 256 mcg/dL (228-428); Total Protein 7.3 g/dL (6.5-8.0); Unsaturated Iron Binding 155 ug/dL
[2024-07-30 17:18] LABS: Ferritin 181 ng/mL (10-122); Vitamin D 25-OH Total 13.3 ng/mL (>30)
[2024-07-30 17:27] LABS: Folate 5.1 ng/mL (> or = 4.0); Vitamin B12 476 pg/mL (200-900)
[2024-07-30 20:09] LABS: Atypical Lymph Absolute Manual 0.1 x10*3/uL; Atypical Lymphs Percent Manual 1 % (0-6); Band Neutrophils Percent 2 % (3-5); Eosinophils Absolute Manual 0.2 X10*3/uL (0.0-0.4); Eosinophils Percent Manual 2 % (0-4); Lymphocytes Absolute Manual 1.5 X10*3/uL (1.2-4.9); Lymphocytes Percent Manual 16 % (20-40); Monocytes Absolute Manual 0.5 X10*3/uL (0.1-1.2); Monocytes Percent Manual 6 % (2-11); Neutrophils Absolute Manual 6.8 X10*3/uL (2.0-8.3); Neutrophils Percent Manual 73 % (45-73)
[2024-07-30 20:10] LABS: Platelet Estimate NORMAL (NORMAL); Platelet Morphology Comment NORMAL; RBC Morphology NORMAL
== END ==
LOC: HO.CARD 15:42
PROVIDERS: Visit Provider Clinical Nurse Specialist Psychiatric/Mental Health
DX: F90.0 Attention-deficit hyperactivity disorder, predominantly inattentive type (principal); F10.21 Alcohol dependence, in remission; E55.9 Vitamin D deficiency, unspecified
CPT/HCPCS: 36415; 80053; 82306; 82607; 82728; 82746; 83540; 84425; 84443; 85007; 85027; 93005

== ENCOUNTER → 2024-07-30 15:47 | Outpatient (BNV) | payer OTHER, SELFPAY | PROVIDERS: Visit Provider Internal Medicine Cardiovascular Disease | DX: R07.89 Other chest pain (principal); R06.02 Shortness of breath | CPT/HCPCS: 93010 ==

== ENCOUNTER 2024-08-09 15:41 | Outpatient (AMB) | payer OTHER, SELFPAY ==
--- NOTE | 2024-08-09 15:45 | MHC.OFFVISPS ---
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 Allergies amoxicillin [AMOXICILLIN] Allergy (Unknown, Verified 06/20/24 14:07) HIVES cephalexin [From Keflex] Allergy (Verified 06/20/24 14:07) Unknown risperidone [From Risperdal] Allergy (Verified 06/20/24 14:07) Unknown fluoxetine [Prozac] Adverse Reaction (Unknown, Verified 06/20/24 14:07) rash - not sure disulfiram [From Antabuse] Adverse Reaction (Verified 06/20/24 14:07) Rash Medication List - Last Reconciled 08/09/24 by Maria D Benson APRN aripiprazole (Abilify) 2 mg PO BEDTIME celecoxib 100 mg PO DAILY gabapentin 200 mg (2 x 100 mg) PO TID lamotrigine (Lamictal) 200 mg PO DAILY methylphenidate HCl (Ritalin) 10 mg PO BID semaglutide (weight loss) (Wegovy) 1.7 mg (0.75 mL) subcut QWEEK HPI- Psychiatric Chief Complaint: depression HPI Narrative: Pt here for follow up on Bipolar Diorder, insomnia and ADHD pt stable; little effect from ritalin 10mg bid mood stable. sleep poor attention, concentration, focus, racing thoughts increased no sign of juju reports significant knee pain and going for ocnsult for possible knee replacement as have tried a numbe rof other things no HI or SI no ETOH use- sustained remission Past Psychiatric History: outpt therapist several over past 20 yrs. she is currently on wait list t [facility] Subjective Subjective Subjective Medication Compliance: Yes Side effects from medications: No Review of Systems Medical Review of Systems: unchanged Mental Status Exam Mental Status Exam Patient Appearance: Well Grooomed Patient Orientation: Person, Place, Time and Situation Level of Consciousness: Awake, Appropriate and Alert Patient Behavior: Appropriate and Cooperative Mood Description: Cheerful and Anxious Affect Description: Cheerful and Anxious Patient Cognition Impaired: No Ability to Follow Directions: Good Speech Pattern: Clear, Spontaneous Speech and Excessive Memory Description: Intact Hallucinations: None Delusions: Not Present Thought Process: Intact and Goal Oriented Thought Content: positive for Intact and positive for Goal Oriented Judgement: Good Assessment and Plan Assessment & Plan (1) Alcohol use disorder, moderate, in early remission, dependence: Status: Acute Code(s): F10.21 - Alcohol dependence, in remission (2) Vitamin D deficiency: Status: Acute Code(s): E55.9 - Vitamin D deficiency, unspecified (3) ADHD (attention deficit hyperactivity disorder), inattentive type: Status: Acute Code(s): F90.0 - Attention-deficit hyperactivity disorder, predominantly inattentive type (4) Bipolar 2 disorder: Status: Acute Code(s): F31.81 - Bipolar II disorder (5) Thiamine deficiency: Status: Acute Code(s): E51.9 - Thiamine deficiency, unspecified Plan meds as per below follow up in 8 weeks pt will contact TW re: efficacy of meds in 10 days Medications: New thiamine HCl (vitamin B1) 100 mg PO DAILY 30 caps 2RF methylphenidate HCl (Ritalin) Partial Fill upon patient request. 10 mg PO DAILY@1500 30 tabs 0RF methylphenidate HCl ER (Concerta) Partial Fill upon patient request. 36 mg PO QAM 30 tabs 0RF Refilled aripiprazole (Abilify) 2 mg PO BEDTIME 90 tabs 1RF gabapentin 200 mg (2 x 100 mg) PO TID 180 caps 1RF anxiety Discontinued methylphenidate HCl (Ritalin) Partial Fill upon patient request. Take 4 hours apart Discontinued Reason: Patient no longer taking 10 mg PO BID 60 tabs 0RF Counseling and coordination of Care Pt. Self Management counseling: Exercise, Maintenance-social rhythm, Mindfulness, Nutrition education and improvement, Sleep hygiene and General coping skills Medication management counseling: Effectiveness, Side effects, Dosing range, Duration, Drug interaction and Adherence Diagnosis and Prognosis Counseling: Accuracy of diagnosis, Prognosis over time, Impact of diagnosis on life functions, Impact of family relationship, Problematic behaviors secondary to diagnosis and Adequacy of current interventions Details: I spent 50 minutes reviewing the record, seeing the patient and documenting in the medical record. Counseling provided to the patient/caregiver as outlined below. Addressed patient/caregiver concerns regarding current medication regime including effective adherence. Addressed patient/caregiver concerns regarding diagnosis and prognosis including accuracy of diagnosis, prognosis over time, impact of diagnosis. Addressed patient/caregiver concerns regarding impact of recent stressors. [facility] Medical History Alcohol use disorder, moderate, dependence Shortness of breath Alcohol abuse COVID-19 Surgical History S/P endometrial ablation Hx of section Hx of shoulder surgery Hx of right knee surgery Hx of left knee surgery Family History Mother Cervical ca Father Diabetes Kidney disease Sleep apnea Thyroid disease Other Mental health disorder Substance use disorder Social History Household Members: Spouse Housing: House Do you presently have visiting nurse or other home services: No Alcohol intake: former Patient Tobacco Use Status: Never used Tobacco e-Cigarette/Vaping Use: Never Used Second Hand Smoke Exposure: No service: No Current occupational status: employed 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 Grew up in area with M& F she is youngest of 4 sibs. Substance History: etoh heavily n past - now 1 x a cynthia. pt reports tobacco puches currently Trauma History: denies Coding Level of Care Code Est Pt Level 5 (58647) Diagnoses Alcohol use disorder, moderate, in early remission, dependence F10.21 Vitamin D deficiency E55.9 ADHD (attention deficit hyperactivity disorder), inattentive type F90.0 Bipolar 2 disorder F31.81 Thiamine deficiency E51.9
== END 2024-08-09 16:13 | disposition home or self-care (01) ==
LOC: HO.HOP 15:41
PROVIDERS: Visit Provider Clinical Nurse Specialist Psychiatric/Mental Health
DX: F31.81 Bipolar II disorder (principal); F10.21 Alcohol dependence, in remission; F90.0 Attention-deficit hyperactivity disorder, predominantly inattentive type; E55.9 Vitamin D deficiency, unspecified; E51.9 Thiamine deficiency, unspecified
CPT/HCPCS: 99215

== ENCOUNTER → 2024-08-09 15:41 | Outpatient (BNVA) | payer OTHER, SELFPAY | PROVIDERS: Visit Provider Clinical Nurse Specialist Psychiatric/Mental Health | DX: F90.0 Attention-deficit hyperactivity disorder, predominantly inattentive type (principal); F10.21 Alcohol dependence, in remission; F31.81 Bipolar II disorder; E55.9 Vitamin D deficiency, unspecified; E51.9 Thiamine deficiency, unspecified; Z71.89 Other specified counseling | CPT/HCPCS: 99212 ==

== ENCOUNTER 2024-09-11 15:43 | Outpatient (AMB) | payer OTHER, SELFPAY ==
--- NOTE | 2024-09-11 13:41 | MHC.OFFVISPS ---
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: No Allergies amoxicillin [AMOXICILLIN] Allergy (Unknown, Verified 06/20/24 14:07) HIVES cephalexin [From Keflex] Allergy (Verified 06/20/24 14:07) Unknown risperidone [From Risperdal] Allergy (Verified 06/20/24 14:07) Unknown fluoxetine [Prozac] Adverse Reaction (Unknown, Verified 06/20/24 14:07) rash - not sure disulfiram [From Antabuse] Adverse Reaction (Verified 06/20/24 14:07) Rash Medication List - Last Reconciled 09/11/24 by Maria D Benson APRN aripiprazole (Abilify) 2 mg PO BEDTIME celecoxib 100 mg PO DAILY gabapentin 200 mg (2 x 100 mg) PO TID lamotrigine (Lamictal) 200 mg PO DAILY methylphenidate HCl (Ritalin) 20 mg PO DAILY@1600 methylphenidate HCl ER (Concerta) 36 mg PO QAM semaglutide (weight loss) (Wegovy) 2.4 mg (0.75 mL) subcut QWEEK thiamine HCl (vitamin B1) 100 mg PO DAILY HPI- Psychiatric Chief Complaint: f/u consultation HPI Narrative: Pt here for ADHD and Bipolar do follow up. Pt improved. mood stable anxiety moderate pt coping well overall ADHD symptoms continue to cause her difficulty and effects mood appetite and sleep intact no juju noted She denies SI or HI reports no etoh abuse Past Psychiatric History: outpt therapist several over past 20 yrs. she is currently on wait list t [facility] Subjective Subjective Subjective Medication Compliance: Yes Side effects from medications: No Review of Systems Medical Review of Systems: unchanged Mental Status Exam Mental Status Exam Patient Appearance: Well Grooomed Patient Orientation: Person, Place and Time Level of Consciousness: Awake and Appropriate Patient Behavior: Appropriate and Cooperative Mood Description: Anxious Affect Description: Anxious Patient Cognition Impaired: No Ability to Follow Directions: Good Speech Pattern: Clear Memory Description: Intact Hallucinations: None Delusions: Not Present Thought Process: Intact Thought Content: positive for Intact Judgement: Good Assessment and Plan Assessment & Plan (1) MARY KATE (generalized anxiety disorder): Status: Acute Code(s): F41.1 - Generalized anxiety disorder (2) Alcohol use disorder, moderate, in early remission, dependence: Status: Acute Code(s): F10.21 - Alcohol dependence, in remission (3) ADHD (attention deficit hyperactivity disorder), inattentive type: Status: Acute Code(s): F90.0 - Attention-deficit hyperactivity disorder, predominantly inattentive type (4) Bipolar 2 disorder: Status: Acute Code(s): F31.81 - Bipolar II disorder Medications: Discontinued methylphenidate HCl ER Partial Fill upon patient request. Discontinued Reason: Doctor's Order 36 mg PO QAM 30 tabs 0RF methylphenidate HCl Partial Fill upon patient request. Discontinued Reason: Doctor's Order 20 mg PO DAILY@1600 30 tabs 0RF Counseling and coordination of Care Pt. Self Management counseling: Nutrition education and improvement and Sleep hygiene Details: I spent 35 minutes reviewing the record, seeing the patient and documenting in the medical record. Counseling provided to the patient/caregiver as outlined below. Addressed patient/caregiver concerns regarding current medication regime including effective adherence. Addressed patient/caregiver concerns regarding diagnosis and prognosis including accuracy of diagnosis, prognosis over time, impact of diagnosis. Addressed patient/caregiver concerns regarding impact of recent stressors. [facility] Medical History Alcohol use disorder, moderate, dependence Shortness of breath Alcohol abuse COVID-19 Surgical History S/P endometrial ablation Hx of section Hx of shoulder surgery Hx of right knee surgery Hx of left knee surgery Family History Mother Cervical ca Father Diabetes Kidney disease Sleep apnea Thyroid disease Other Mental health disorder Substance use disorder Social History Household Members: Spouse Housing: House Do you presently have visiting nurse or other home services: No Alcohol intake: former Patient Tobacco Use Status: Never used Tobacco e-Cigarette/Vaping Use: Never Used Second Hand Smoke Exposure: No service: No Current occupational status: employed 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 Grew up in area with M& F she is youngest of 4 sibs. Substance History: etoh heavily n past - now 1 x a cynthia. pt reports tobacco puches currently Trauma History: denies Coding Level of Care Code Est Pt Level 4 (47778) Diagnoses MARY KATE (generalized anxiety disorder) F41.1 Alcohol use disorder, moderate, in early remission, dependence F10.21 ADHD (attention deficit hyperactivity disorder), inattentive type F90.0 Bipolar 2 disorder F31.81
== END 2024-09-11 15:43 | disposition home or self-care (01) ==
LOC: HO.HOP 15:43
PROVIDERS: Visit Provider Clinical Nurse Specialist Psychiatric/Mental Health
DX: F41.1 Generalized anxiety disorder (principal); F10.21 Alcohol dependence, in remission; F90.0 Attention-deficit hyperactivity disorder, predominantly inattentive type; F31.81 Bipolar II disorder
CPT/HCPCS: 99214

== ENCOUNTER → 2024-09-11 15:43 | Outpatient (BNVA) | payer OTHER, SELFPAY | PROVIDERS: Visit Provider Clinical Nurse Specialist Psychiatric/Mental Health | DX: F41.1 Generalized anxiety disorder (principal); F10.21 Alcohol dependence, in remission; F90.0 Attention-deficit hyperactivity disorder, predominantly inattentive type; F31.81 Bipolar II disorder | CPT/HCPCS: 20610; 99212 ==

== ENCOUNTER 2024-10-02 15:37 | Outpatient (AMB) | payer OTHER, SELFPAY ==
--- NOTE | 2024-10-02 15:46 | MHC.OFFVISPS ---
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 Allergies amoxicillin [AMOXICILLIN] Allergy (Unknown, Verified 06/20/24 14:07) HIVES cephalexin [From Keflex] Allergy (Verified 06/20/24 14:07) Unknown risperidone [From Risperdal] Allergy (Verified 06/20/24 14:07) Unknown fluoxetine [Prozac] Adverse Reaction (Unknown, Verified 06/20/24 14:07) rash - not sure disulfiram [From Antabuse] Adverse Reaction (Verified 06/20/24 14:07) Rash Medication List - Last Reconciled 10/02/24 by Maria D Benson APRN aripiprazole (Abilify) 2 mg PO BEDTIME celecoxib 100 mg PO DAILY dextroamphetamine-amphetamine 20 mg ER (Adderall XR) 20 mg PO QAM gabapentin 200 mg (2 x 100 mg) PO TID lamotrigine (Lamictal) 200 mg PO DAILY semaglutide (weight loss) (Wegovy) 2.4 mg (0.75 mL) subcut QWEEK thiamine HCl (vitamin B1) 100 mg PO DAILY HPI- Psychiatric Chief Complaint: depression HPI Narrative: Pt here for ADHD and Bipolar do follow up. Pt improved. mood stale anxiety moderate pt coping well overall ADHD symptoms in good control from 6am to 3 pm pt more focuse, more able to stay on tasks, less distracted when taking the adderall xr 20mg at 6am she does feel it wear off around 3pm she struggles with the afternoon demands of cooking, helping kids with homework, managing family life after work. She denies side effects from medications appetite and sleep intact no juju noted She denies SI or HI reports no etoh abuse Past Psychiatric History: outpt therapist several over past 20 yrs. she is currently on wait list t [facility] Subjective Subjective Subjective Medication Compliance: Yes Side effects from medications: No Review of Systems Medical Review of Systems: unchanged Mental Status Exam Mental Status Exam Patient Appearance: Well Grooomed and Appropriate Patient Orientation: Person, Place, Time and Situation Level of Consciousness: Awake, Appropriate and Alert Patient Behavior: Appropriate and Cooperative Mood Description: Cheerful and Anxious Affect Description: Cheerful and Anxious Patient Cognition Impaired: No Ability to Follow Directions: Good Speech Pattern: Clear and Appropriate Memory Description: Intact Hallucinations: None Delusions: Not Present Thought Process: Intact, Distracted and Goal Oriented Thought Content: positive for Intact, positive for Goal Oriented and positive for Loose Associations Judgement: Good Assessment and Plan Assessment & Plan (1) MARY KATE (generalized anxiety disorder): Status: Acute Code(s): F41.1 - Generalized anxiety disorder (2) ADHD (attention deficit hyperactivity disorder), inattentive type: Status: Acute Code(s): F90.0 - Attention-deficit hyperactivity disorder, predominantly inattentive type Plan add adderall 10 - 15mg at 3pm daily as needed continue other meds per below return in 8 weeks for follow up Medications: New dextroamphetamine-amphetamine 10 mg (Adderall) Partial Fill upon patient request. 15 mg (1.5 x 10 mg) PO DAILY@1500 45 tabs 0RF Refilled aripiprazole (Abilify) 2 mg PO BEDTIME 90 tabs 1RF dextroamphetamine-amphetamine 20 mg ER (Adderall XR) Partial Fill upon patient request. 20 mg PO QAM 30 caps 0RF gabapentin 200 mg (2 x 100 mg) PO TID 180 caps 1RF anxiety thiamine HCl (vitamin B1) 100 mg PO DAILY 30 caps 2RF Counseling and coordination of Care Pt. Self Management counseling: Maintenance-social rhythm, Mod caffeine/ETOH intake, Sleep hygiene and General coping skills Medication management counseling: Effectiveness, Side effects, Dosing range, Duration, Drug interaction and Adherence Diagnosis and Prognosis Counseling: Accuracy of diagnosis, Prognosis over time, Impact of diagnosis on life functions, Impact of family relationship, Problematic behaviors secondary to diagnosis and Adequacy of current interventions Details: I spent 40 minutes reviewing the record, seeing the patient and documenting in the medical record. Counseling provided to the patient/caregiver as outlined below. Addressed patient/caregiver concerns regarding current medication regime including effective adherence. Addressed patient/caregiver concerns regarding diagnosis and prognosis including accuracy of diagnosis, prognosis over time, impact of diagnosis. Addressed patient/caregiver concerns regarding impact of recent stressors. [facility] Medical History Alcohol use disorder, moderate, dependence Shortness of breath Alcohol abuse COVID-19 Surgical History S/P endometrial ablation Hx of section Hx of shoulder surgery Hx of right knee surgery Hx of left knee surgery Family History Mother Cervical ca Father Diabetes Kidney disease Sleep apnea Thyroid disease Other Mental health disorder Substance use disorder Social History Household Members: Spouse Housing: House Do you presently have visiting nurse or other home services: No Alcohol intake: former Patient Tobacco Use Status: Never used Tobacco e-Cigarette/Vaping Use: Never Used Second Hand Smoke Exposure: No service: No Current occupational status: employed 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 Grew up in area with M& F she is youngest of 4 sibs. Substance History: etoh heavily n past - now 1 x a cynthia. pt reports tobacco puches currently Trauma History: denies Coding Level of Care Code Est Pt Level 4 (69588) Diagnoses MARY KATE (generalized anxiety disorder) F41.1 ADHD (attention deficit hyperactivity disorder), inattentive type F90.0
== END 2024-10-02 16:05 | disposition home or self-care (01) ==
LOC: HO.HOP 15:37
PROVIDERS: Visit Provider Clinical Nurse Specialist Psychiatric/Mental Health
DX: F41.1 Generalized anxiety disorder (principal); F90.0 Attention-deficit hyperactivity disorder, predominantly inattentive type
CPT/HCPCS: 99214

== ENCOUNTER → 2024-10-02 15:37 | Outpatient (BNVA) | payer OTHER, SELFPAY | PROVIDERS: Visit Provider Clinical Nurse Specialist Psychiatric/Mental Health | DX: F41.1 Generalized anxiety disorder (principal); F90.0 Attention-deficit hyperactivity disorder, predominantly inattentive type; Z71.89 Other specified counseling | CPT/HCPCS: 99212 ==

== ENCOUNTER 2024-10-31 13:50 | Outpatient (AMB) | payer OTHER, SELFPAY ==
--- NOTE | 2024-10-31 13:59 | A.OFFVIS_ITS ---
Vital Signs 10/31/24 14:00 Height 5 ft 2 in Weight 204 lb BMI 37.3 BP 106/66 Intake Visit Reasons: New Patient annual Intake Note: Last pap 5yrs ago normal hx per pt pt states hx of endometriosis and PMDD, heavy painful periods, mood swings, exhaustion Hr Operations Advisor: Hr Operations Advisor Present (Jadyn) Allergies amoxicillin (AMOXICILLIN) Allergy (Unknown, Verified 10/31/24 14:00) HIVES cephalexin (From Keflex) Allergy (Verified 10/31/24 14:00) Unknown risperidone (From Risperdal) Allergy (Verified 10/31/24 14:00) Unknown fluoxetine (Prozac) Adverse Reaction (Unknown, Verified 10/31/24 14:00) rash - not sure disulfiram (From Antabuse) Adverse Reaction (Verified 10/31/24 14:00) Rash Is last menstrual period known: Yes Last menstrual period: 10/08/24 HPI Comments Details: She is a premenopausal woman presenting for new patient annual examination. Doing well with generator man concerns: hx of endometriosis w/ heavy menses treated with the uterine ablation- Dr. Gresham 2021. She reports mood swings and cramps 1-2 weeks before menses. Menses are regular and monthly. Hx of PMDD. Has a psychiatrist, on meds for a while, stable, on wait list for therapist appointment. Has tried every control and does poorly with side effects does not want to restart hormones. Currently is sexually active, w/. She denies vaginal itching or irritation. STI screening offered; she declines. She tries to eat healthy (on weight loss meds) and stays active with exercise- limited w/knee. Denies family history of ovarian or colon cancer. FH breast cancer. Last pap smear approx 5 years ago, negative. [facility] Medical History (Updated 10/31/24 @ 16:25 by Katie rPuett CNM) Dysmenorrhea Encounter for well woman exam with routine gynecological exam Cluster headache syndrome MARY KATE (generalized anxiety disorder) ADHD (attention deficit hyperactivity disorder), inattentive type Bipolar 2 disorder PMDD (premenstrual dysphoric disorder) Endometriosis Alcohol use disorder, moderate, dependence Shortness of breath Alcohol abuse COVID-19 Surgical History Hx of tubal ligation S/P endometrial ablation Hx of section Hx of shoulder surgery Hx of right knee surgery Hx of left knee surgery Family History Mother Cervical ca Father Diabetes Kidney disease Sleep apnea Thyroid disease Family/Other History of breast cancer Other Mental health disorder Substance use disorder Social History Household Members: Spouse Housing: House Do you presently have visiting nurse or other home services: No Alcohol intake: former Patient Tobacco Use Status: Never used Tobacco e-Cigarette/Vaping Use: Never Used Second Hand Smoke Exposure: No service: No Current occupational status: employed 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 Cognitive needs: No Hearing needs: No Vision needs: Yes (Glasses) Female Reproductive History Menstrual Duration of menses: 3-5 days Date of last menstrual period: 10/08/24 control method: permanent sterilization Permanent Sterilization: BTL Total pregnancies: 4 Full term: 4 Number of Living Children: 4 Review of Systems Const All systems reviewed & are unremarkable except as noted in HPI and below Reports as per HPI Eyes Reports no additional complaints ENT Reports no additional complaints Card Reports no additional complaints Resp Reports no additional complaints GI Reports as per HPI and Reports no additional complaints Reports as per HPI Musc Reports no additional complaints Skin/Breast Reports as per HPI Neuro Reports no additional complaints Psych Reports no additional complaints Endo Reports no additional complaints Jose/Lymph Reports no additional complaints Aller/Immun Reports no additional complaints Physical Exam Vital Signs: Last Vital Signs BP 106/66 10/31/24 14:00 BMI result Body Mass Index 37.3 Const General: cooperative, healthy appearing, no acute distress, well developed and alert Orientation/consciousness: patient oriented x3 HEENT Head: Yes normal to inspection Eyes General: appearance normal, both eyes and all related structures Neck Neck: Yes normal visual inspection Thyroid: Thyroid normal Chest Other: Bilateral nipple inversion( since development) Chest palpation & inspection: normal inspection of the chest and other (no puckering, dimpling, peau de orange, retraction, discharge, masses) Breast/axilla inspection: normal inspection of the breasts Breast/axilla palpation: normal palpation of the breasts Resp Effort & Inspection: normal respiratory effort GI Inspection: Yes normal to inspection Palpation (GI): Soft to palpation Rectal Exam - Female: deferred General: Yes bladder normal to palpation External Female Exam: normal external appearance and normal appearance of the urethra Speculum Exam - Vagina: normal appearance of the vagina, normal palpation and normal vaginal discharge Speculum Exam - Cervix: normal appearance of the cervix and normal palpation Bimanual exam- vagina & uterus: normal bimanual exam, normal palpation, uterine size normal, bladder normal to palpation, normal palpation and non-tender Bimanual Exam- Adnexa, other: no masses Skin General skin exam: no rashes or lesions noted Rashes: no rashes Neuro General: patient oriented x3 Cognition (Neuro): normal cognition Extrem General: Yes normal to inspection Psych Attitude: cooperative Thought process: Normal thought process present Assessment & Plan Assessment & Plan (1) Encounter for well woman exam with routine gynecological exam: Code(s): Z01.419 - Encounter for gynecological examination (general) (routine) without abnormal findings Category: Medical Plan: Discussed: Current recommendations for pap smears per ASCCP guidelines. Breast awareness and periodic breast exams. Maintain a healthy lifestyle including a well balanced diet and routine exercise. Patient verbalizes understanding and agrees to the plan of care. She was given opportunity to ask questions and all questions were answered to the best of my ability. RTO in one year for annual generator man examination. This note is constructed using voice recognition software. While every effort has been made to ensure accuracy, resource recovery specialist errors may have been included. (2) Endometriosis: Code(s): N80.9 - Endometriosis, unspecified Category: Medical Plan: Discuss management options, defers all hormonal use interested in long-term management with possible hysterectomy. Referral placed for surgical consult and to address all symptoms noted. The patient expressed understanding and agreement with the plan of care. All of her questions and concerns were addressed to the best of my ability. (3) PMDD (premenstrual dysphoric disorder): Code(s): F32.81 - Premenstrual dysphoric disorder Category: Medical Plan: Reviewed methods for treatment, defers any hormones. (4) Dysmenorrhea: Code(s): N94.6 - Dysmenorrhea, unspecified Category: Medical Plan: Has tried all options of [id number] management. Plan referral for consult to [facility]. Plan The patient expressed understanding and agreement with the plan of care. All of her questions and concerns were addressed to the best of my ability. Total time I personally spent on visit and management today: ?20 minutes. Time spent included review of pertinent office notes in the electronic health record; review of laboratory and imaging results; review of personal family medical history; performing physical exam; discussing diagnosis and plan of care with the patient; documenting the encounter in the EMR. This note is constructed using voice recognition software. While every effort has been made to ensure accuracy, resource recovery specialist errors may have been included. Orders: Orders HPV High risk Today F32.81 - Premenstrual dysphoric disorder, N80.9 - Endometriosis, unspecified, N94.6 - Dysmenorrhea, unspecified, Z01.419 - Encounter for gynecological examination (general) (routine) without abnormal findings Pap Smear Today Z01.419 - Encounter for gynecological examination (general) (routine) without abnormal findings Referrals COMMERCIAL REAL ESTATE ATTORNEY Referral F32.81 - Premenstrual dysphoric disorder, N80.9 - Endometriosis, unspecified, N94.6 - Dysmenorrhea, unspecified Coding Level of Care Code New Pt Level 2 (07198) New Pt Prev Care 18-39yr([id number] Diagnoses Encounter for well woman exam with routine gynecological exam Z01.419 Endometriosis N80.9 PMDD (premenstrual dysphoric disorder) F32.81 Dysmenorrhea N94.6
[2024-10-31 14:00] VITALS: BP 106/66; BMI 37.3
== END 2024-10-31 14:36 | disposition home or self-care (01) ==
LOC: HO.HWS 13:50
PROVIDERS: Visit Provider Advanced Practice Midwife
DX: Z01.419 Encounter for gynecological examination (general) (routine) without abnormal findings (principal); N80.9 Endometriosis, unspecified; F32.81 Premenstrual dysphoric disorder; N94.6 Dysmenorrhea, unspecified
CPT/HCPCS: 99212; 99385; 99459

== ENCOUNTER 2024-10-31 14:31 | Outpatient (REF) | payer OTHER, SELFPAY ==
[2024-11-05 13:55] LABS: HPV Genotype 16 Negative (Negative); HPV Genotype 18 Negative (Negative); HPV High Risk Negative (Negative)
== END 2024-10-31 14:32 | disposition home or self-care (01) ==
LOC: HO.LNP 14:31
PROVIDERS: Visit Provider Advanced Practice Midwife
DX: Z01.419 Encounter for gynecological examination (general) (routine) without abnormal findings (principal); N94.6 Dysmenorrhea, unspecified; F32.81 Premenstrual dysphoric disorder; N80.9 Endometriosis, unspecified
CPT/HCPCS: 87626; 88175; 99212; 99385

== ENCOUNTER 2024-11-19 15:49 | Outpatient (AMB) | payer OTHER, SELFPAY ==
--- NOTE | 2024-11-19 15:36 | MHC.OFFVISPS ---
Intake Intake Visit Reasons: follow up Allergies amoxicillin (AMOXICILLIN) Allergy (Unknown, Verified 10/31/24 14:00) HIVES cephalexin (From Keflex) Allergy (Verified 10/31/24 14:00) Unknown risperidone (From Risperdal) Allergy (Verified 10/31/24 14:00) Unknown fluoxetine (Prozac) Adverse Reaction (Unknown, Verified 10/31/24 14:00) rash - not sure disulfiram (From Antabuse) Adverse Reaction (Verified 10/31/24 14:00) Rash Medication List - Last Reconciled 11/19/24 by Maria D Benson APRN aripiprazole (Abilify) 2 mg PO BEDTIME celecoxib 100 mg PO DAILY Held on 02/11/24. Instructions: Resume on 02/17/24. cholecalciferol (vitamin D3) 50 mcg PO DAILY dextroamphetamine-amphetamine 10 mg (Adderall) 15 mg (1.5 x 10 mg) PO DAILY@1500 dextroamphetamine-amphetamine 20 mg ER (Adderall XR) 20 mg PO QAM gabapentin 200 mg (2 x 100 mg) PO TID lamotrigine (Lamictal) 200 mg PO DAILY semaglutide (weight loss) (Wegovy) 2.4 mg (0.75 mL) subcut QWEEK thiamine HCl (vitamin B1) 100 mg PO DAILY HPI- Psychiatric Chief Complaint: follow up HPI Narrative: Pt here for ADHD and Bipolar do follow up. Pt improved. mood stable anxiety moderate pt coping well overall ADHD symptoms improved from 6am to 3 pm pt more focused, more able to stay on tasks, less distracted when taking the adderall xr 20mg at 6am she does feel it wear off around 3pm she struggles with the afternoon demands of cooking, helping kids with homework, managing family life after work. She denies side effects from medications appetite and sleep intact no juju noted She denies SI or HI reports no etoh abuse Past Psychiatric History: outpt therapist several over past 20 yrs. she is currently on wait list t [facility] Subjective Subjective Subjective Medication Compliance: Yes Side effects from medications: No Review of Systems Medical Review of Systems: unchanged Mental Status Exam Mental Status Exam Patient Appearance: Well Grooomed and Appropriate Patient Orientation: Person, Place, Time and Situation Level of Consciousness: Awake, Appropriate and Alert Patient Behavior: Appropriate and Cooperative Mood Description: Cheerful and Anxious Affect Description: Cheerful and Anxious Patient Cognition Impaired: No Ability to Follow Directions: Good Speech Pattern: Clear and Appropriate Memory Description: Intact Hallucinations: None Delusions: Not Present Thought Process: Intact, Distracted and Goal Oriented Thought Content: positive for Intact, positive for Goal Oriented and positive for Loose Associations Judgement: Good Assessment and Plan Assessment & Plan (1) Bipolar 2 disorder: Status: Acute Code(s): F31.81 - Bipolar II disorder (2) ADHD (attention deficit hyperactivity disorder), inattentive type: Status: Acute Code(s): F90.0 - Attention-deficit hyperactivity disorder, predominantly inattentive type (3) MARY KATE (generalized anxiety disorder): Status: Acute Code(s): F41.1 - Generalized anxiety disorder Plan increase adderall XR 30mg in am and adderall 20mg in afternoon continue other meds per below return in 8 weeks for follow up Medications: New dextroamphetamine-amphetamine 20 mg (Adderall) Partial Fill upon patient request. 20 mg PO DAILY@1500 30 tabs 0RF F90.0 - Attention-deficit hyperactivity disorder, predominantly inattentive type dextroamphetamine-amphetamine 25 mg ER (Adderall XR) Partial Fill upon patient request. 25 mg PO QAM 30 caps 0RF F90.0 - Attention-deficit hyperactivity disorder, predominantly inattentive type Refilled lamotrigine (Lamictal) 200 mg PO DAILY 90 tabs 1RF gabapentin 200 mg (2 x 100 mg) PO TID 180 caps 1RF anxiety aripiprazole (Abilify) 2 mg PO BEDTIME 90 tabs 1RF Discontinued dextroamphetamine-amphetamine 20 mg ER Partial Fill upon patient request. Discontinued Reason: Doctor's Order 20 mg PO QAM 30 caps 0RF dextroamphetamine-amphetamine 10 mg Partial Fill upon patient request. Discontinued Reason: Doctor's Order 15 mg (1.5 x 10 mg) PO DAILY@1500 45 tabs 0RF Counseling and coordination of Care Pt. Self Management counseling: Maintenance-social rhythm, Mod caffeine/ETOH intake, Sleep hygiene and General coping skills Medication management counseling: Effectiveness, Side effects, Dosing range, Duration, Drug interaction and Adherence Diagnosis and Prognosis Counseling: Accuracy of diagnosis, Prognosis over time, Impact of diagnosis on life functions, Impact of family relationship, Problematic behaviors secondary to diagnosis and Adequacy of current interventions Details: I spent [] minutes reviewing the record, seeing the patient and documenting in the medical record. Counseling provided to the patient/caregiver as outlined below. Addressed patient/caregiver concerns regarding current medication regime including effective adherence. Addressed patient/caregiver concerns regarding diagnosis and prognosis including accuracy of diagnosis, prognosis over time, impact of diagnosis. Addressed patient/caregiver concerns regarding impact of recent stressors. [facility], [facility] Medical History (Updated 10/31/24 @ 16:25 by Katie Pruett CNM) Dysmenorrhea Encounter for well woman exam with routine gynecological exam Cluster headache syndrome MARY KATE (generalized anxiety disorder) ADHD (attention deficit hyperactivity disorder), inattentive type Bipolar 2 disorder PMDD (premenstrual dysphoric disorder) Endometriosis Alcohol use disorder, moderate, dependence Shortness of breath Alcohol abuse COVID-19 Surgical History Hx of tubal ligation S/P endometrial ablation Hx of section Hx of shoulder surgery Hx of right knee surgery Hx of left knee surgery Family History Mother Cervical ca Father Diabetes Kidney disease Sleep apnea Thyroid disease Family/Other History of breast cancer Other Mental health disorder Substance use disorder Social History Household Members: Spouse Housing: House Do you presently have visiting nurse or other home services: No Alcohol intake: former Patient Tobacco Use Status: Never used Tobacco e-Cigarette/Vaping Use: Never Used Second Hand Smoke Exposure: No service: No Current occupational status: employed 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 Grew up in area with [place] F she is youngest of 4 sibs. Substance History: etoh heavily n past - now 1 x a cynthia. pt reports tobacco puches currently Trauma History: denies Coding Level of Care Code Est Pt Level 4 (44802) Diagnoses Bipolar 2 disorder F31.81 ADHD (attention deficit hyperactivity disorder), inattentive type F90.0 MARY KATE (generalized anxiety disorder) F41.1
== END 2024-11-19 15:50 | disposition home or self-care (01) ==
LOC: HO.HOP 15:49
PROVIDERS: Visit Provider Clinical Nurse Specialist Psychiatric/Mental Health
DX: F31.81 Bipolar II disorder (principal); F90.0 Attention-deficit hyperactivity disorder, predominantly inattentive type; F41.1 Generalized anxiety disorder
CPT/HCPCS: 99214

== ENCOUNTER → 2024-11-19 15:49 | Outpatient (BNVA) | payer OTHER, SELFPAY | PROVIDERS: Visit Provider Clinical Nurse Specialist Psychiatric/Mental Health | DX: F90.0 Attention-deficit hyperactivity disorder, predominantly inattentive type (principal); F31.81 Bipolar II disorder; F41.1 Generalized anxiety disorder | CPT/HCPCS: 99212 ==

== ENCOUNTER 2024-12-18 13:42 | Outpatient (AMB) | payer OTHER, SELFPAY ==
--- NOTE | 2024-12-18 13:40 | A.OFFPSYCH_ITS ---
Intake Intake Visit Reasons: f/u consultation Computer Patternmaker Required: No Allergies amoxicillin (AMOXICILLIN) Allergy (Unknown, Verified 12/18/24 14:46) HIVES cephalexin (From Keflex) Allergy (Verified 12/18/24 14:46) Unknown risperidone (From Risperdal) Allergy (Verified 12/18/24 14:46) Unknown fluoxetine (Prozac) Adverse Reaction (Unknown, Verified 12/18/24 14:46) rash - not sure disulfiram (From Antabuse) Adverse Reaction (Verified 12/18/24 14:46) Rash Medication List - Last Reconciled 12/18/24 by Maria D Benson APRN aripiprazole (Abilify) 2 mg PO BEDTIME celecoxib 100 mg PO DAILY Held on 02/11/24. Instructions: Resume on 02/17/24. cholecalciferol (vitamin D3) 50 mcg PO DAILY dextroamphetamine-amphetamine 20 mg (Adderall) 20 mg PO DAILY@1500 dextroamphetamine-amphetamine 25 mg ER (Adderall XR) 25 mg PO QAM gabapentin 200 mg (2 x 100 mg) PO TID lamotrigine (Lamictal) 200 mg PO DAILY thiamine HCl (vitamin B1) 100 mg PO DAILY tirzepatide (weight loss) (Zepbound) 2.5 mg (0.5 mL) subcut QWEEK HPI- Psychiatric Chief Complaint: f/u consultation HPI Narrative: Pt here for ADHD and Bipolar do follow up. Pt improved but still struggles with ADHD symptoms effecting her family and work life mood stable; anxiety moderate pt coping well overall ADHD symptoms improved from 6am to 3 pm pt more focused, more able to stay on tasks, less distracted when taking the adderall xr 20mg at 6am but the symptoms still effect her and family; narrowly misses dealines, appontments or tasks for family activities, kids schoolactivities, paying bills. she feels adderall wear off around 2-3pm and 20 mg helps a little she struggles with the afternoon demands of cooking, helping kids with homework, managing family life after work. She denies side effects from medications appetite and sleep intact no juju noted She denies SI or HI reports no etoh abuse; denies illict/recreational drug use Past Psychiatric History: outpt therapist several over past 20 yrs. she is currently on wait list t [facility] Subjective Subjective Subjective Medication Compliance: Yes Side effects from medications: No Review of Systems Medical Review of Systems: unchanged Mental Status Exam Mental Status Exam Patient Appearance: Well Grooomed and Appropriate Patient Orientation: Person, Place, Time and Situation Level of Consciousness: Awake, Appropriate and Alert Patient Behavior: Appropriate and Cooperative Mood Description: Cheerful and Anxious Affect Description: Cheerful and Anxious Patient Cognition Impaired: No Ability to Follow Directions: Good Speech Pattern: Clear and Appropriate Memory Description: Intact Hallucinations: None Delusions: Not Present Thought Process: Intact, Distracted and Goal Oriented Thought Content: positive for Intact, positive for Goal Oriented and positive for Loose Associations Judgement: Good Assessment and Plan Assessment & Plan (1) ADHD (attention deficit hyperactivity disorder), inattentive type: Status: Acute Code(s): F90.0 - Attention-deficit hyperactivity disorder, predominantly inattentive type (2) Bipolar 2 disorder: Status: Acute Code(s): F31.81 - Bipolar II disorder (3) MARY KATE (generalized anxiety disorder): Status: Acute Code(s): F41.1 - Generalized anxiety disorder Plan increase adderall XR 30mg at 6 am and adderall 30mg in afternoon at 2pm continue other meds per below return in 8 weeks for follow up Medications: New dextroamphetamine-amphetamine 30 mg ER (Adderall XR) Partial Fill upon patient request. 30 mg PO QAM 30 caps 0RF F90.0 - Attention-deficit hyperactivity disorder, predominantly inattentive type dextroamphetamine-amphetamine 30 mg (Adderall) Partial Fill upon patient request. 30 mg PO DAILY@1400 30 tabs 0RF F90.0 - Attention-deficit hyperactivity disorder, predominantly inattentive type cholecalciferol (vitamin D3) 50 mcg PO DAILY 30 caps 2RF Refilled lamotrigine (Lamictal) 200 mg PO DAILY 90 tabs 1RF gabapentin 200 mg (2 x 100 mg) PO TID 180 caps 1RF anxiety thiamine HCl (vitamin B1) 100 mg PO DAILY 30 caps 2RF Discontinued dextroamphetamine-amphetamine 20 mg (Adderall) Partial Fill upon patient request. Discontinued Reason: Doctor's Order 20 mg PO DAILY@1500 30 tabs 0RF F90.0 - Attention-deficit hyperactivity disorder, predominantly inattentive type dextroamphetamine-amphetamine 25 mg ER (Adderall XR) Partial Fill upon patient request. Discontinued Reason: Doctor's Order 25 mg PO QAM 30 caps 0RF F90.0 - Attention-deficit hyperactivity disorder, predominantly inattentive type Counseling and coordination of Care Pt. Self Management counseling: Maintenance-social rhythm, Mod caffeine/ETOH intake, Nutrition education and improvement, Sleep hygiene and General coping skills Medication management counseling: Effectiveness, Side effects, Dosing range, Duration, Drug interaction and Adherence Diagnosis and Prognosis Counseling: Accuracy of diagnosis, Prognosis over time, Impact of diagnosis on life functions, Impact of family relationship, Problematic behaviors secondary to diagnosis and Adequacy of current interventions Details: I spent 40 minutes reviewing the record, seeing the patient and documenting in the medical record. Counseling provided to the patient/caregiver as outlined below. Addressed patient/caregiver concerns regarding current medication regime including effective adherence. Addressed patient/caregiver concerns regarding diagnosis and prognosis including accuracy of diagnosis, prognosis over time, impact of diagnosis. Addressed patient/caregiver concerns regarding impact of recent stressors. [facility] Medical History Dysmenorrhea Encounter for well woman exam with routine gynecological exam Cluster headache syndrome MARY KATE (generalized anxiety disorder) ADHD (attention deficit hyperactivity disorder), inattentive type Bipolar 2 disorder PMDD (premenstrual dysphoric disorder) Endometriosis Alcohol use disorder, moderate, dependence Shortness of breath Alcohol abuse COVID-19 Surgical History Hx of tubal ligation S/P endometrial ablation Hx of section Hx of shoulder surgery Hx of right knee surgery Hx of left knee surgery Family History Mother Cervical ca Father Diabetes Kidney disease Sleep apnea Thyroid disease Family/Other History of breast cancer Other Mental health disorder Substance use disorder Social History Household Members: Spouse Housing: House Do you presently have visiting nurse or other home services: No Alcohol intake: former Patient Tobacco Use Status: Never used Tobacco e-Cigarette/Vaping Use: Never Used Second Hand Smoke Exposure: No service: No Current occupational status: employed 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 Grew up in area with M& F she is youngest of 4 sibs. Substance History: etoh heavily n past - now 1 x a cynthia. pt reports tobacco puches currently Trauma History: denies Coding Level of Care Code Est Pt Level 4 (32083) Diagnoses ADHD (attention deficit hyperactivity disorder), inattentive type F90.0 Bipolar 2 disorder F31.81 MARY KATE (generalized anxiety disorder) F41.1
== END 2024-12-18 13:59 | disposition home or self-care (01) ==
LOC: HO.HOP 13:42
PROVIDERS: Visit Provider Clinical Nurse Specialist Psychiatric/Mental Health
DX: F90.0 Attention-deficit hyperactivity disorder, predominantly inattentive type (principal); F31.81 Bipolar II disorder; F41.1 Generalized anxiety disorder
CPT/HCPCS: 99214

== ENCOUNTER → 2024-12-18 13:42 | Outpatient (BNVA) | payer OTHER, SELFPAY | PROVIDERS: Visit Provider Clinical Nurse Specialist Psychiatric/Mental Health | DX: Z00.00 Encounter for general adult medical examination without abnormal findings (principal); F90.0 Attention-deficit hyperactivity disorder, predominantly inattentive type; F31.81 Bipolar II disorder; F41.1 Generalized anxiety disorder; F10.21 Alcohol dependence, in remission; E55.9 Vitamin D deficiency, unspecified; N80.9 Endometriosis, unspecified; E66.9 Obesity, unspecified; Z68.37 Body mass index [BMI] 37.0-37.9, adult; B35.1 Tinea unguium; M79.674 Pain in right toe(s); K76.0 Fatty (change of) liver, not elsewhere classified; M17.0 Bilateral primary osteoarthritis of knee; Z71.3 Dietary counseling and surveillance | CPT/HCPCS: 99212; 99395 ==

== ENCOUNTER 2024-12-18 14:07 | Outpatient (AMB) | payer OTHER, SELFPAY ==
--- NOTE | 2024-12-18 14:22 | MHC.PC.OV ---
Vital Signs 12/18/24 14:24 Height 5 ft 2 in Weight 206 lb 6 oz BMI 37.7 BP 118/78 Blood Pressure Location Lt brachial Position Sitting Pulse 76 Pulse Source Pulse Oximeter Pulse Oximetry (%) 98 Oxygen Delivery Method Room Air Intake Visit Reasons: annual exam Armhole Presser Required: No Accompanied by: Self / Same As Patient Allergies amoxicillin (AMOXICILLIN) Allergy (Unknown, Verified 12/18/24 14:46) HIVES cephalexin (From Keflex) Allergy (Verified 12/18/24 14:46) Unknown risperidone (From Risperdal) Allergy (Verified 12/18/24 14:46) Unknown fluoxetine (Prozac) Adverse Reaction (Unknown, Verified 12/18/24 14:46) rash - not sure disulfiram (From Antabuse) Adverse Reaction (Verified 12/18/24 14:46) Rash Medication List - Last Reconciled 12/18/24 by Marianne Hernandez PA-C aripiprazole (Abilify) 2 mg PO BEDTIME celecoxib 100 mg PO DAILY Held on 02/11/24. Instructions: Resume on 02/17/24. cholecalciferol (vitamin D3) 50 mcg PO DAILY dextroamphetamine-amphetamine 30 mg (Adderall) 30 mg PO DAILY@1400 dextroamphetamine-amphetamine 30 mg ER (Adderall XR) 30 mg PO QAM gabapentin 200 mg (2 x 100 mg) PO TID lamotrigine (Lamictal) 200 mg PO DAILY thiamine HCl (vitamin B1) 100 mg PO DAILY tirzepatide (weight loss) (Zepbound) 2.5 mg (0.5 mL) subcut QWEEK Tobacco use date assessed: 12/18/24 Dental Screening Dental Screen Date: 12/18/24 Did you have a dental visit in the last 12 months?: No Did you have a dental problem in the last 6 months where you did not have access to dental care?: No Was dental information given to patient?: No HPI annual exam HPI Details 39-year-old female with past medical history bipolar 2 disorder, elevated LFTs and alcohol use disorder coming to the office for annual exam. In review of the notes, patient continues to follow with outpatient psych clinic for ADHD. Anxiety and bipolar disorders are under management with medication adjustments, showing improvement. ADHD treatment is ongoing with noted progress. History of endometriosis with referral for potential hysterectomy due to persistent symptoms despite ablation. Toenail fungus treated with [id number] antifungal, showing improvement. Reports fracture of right toe with improper healing, causing pain. He is undergoing evaluation through [facility] for right total knee replacement with Dr. Srivastava. Pap smear: following with [employer]R[facility] Vaccines: Tdap UTD [facility] Medical History Dysmenorrhea Encounter for well woman exam with routine gynecological exam Cluster headache syndrome MARY KATE (generalized anxiety disorder) ADHD (attention deficit hyperactivity disorder), inattentive type Bipolar 2 disorder PMDD (premenstrual dysphoric disorder) Endometriosis Alcohol use disorder, moderate, dependence Shortness of breath Alcohol abuse COVID-19 Surgical History Hx of tubal ligation S/P endometrial ablation Hx of section Hx of shoulder surgery Hx of right knee surgery Hx of left knee surgery Family History Mother Cervical ca Father Diabetes Kidney disease Sleep apnea Thyroid disease Family/Other History of breast cancer Other Mental health disorder Substance use disorder Social History Household Members: Spouse Housing: House Do you presently have visiting nurse or other home services: No Alcohol intake: former Patient Tobacco Use Status: Never used Tobacco e-Cigarette/Vaping Use: Never Used Second Hand Smoke Exposure: No service: No Current occupational status: employed 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 1. Little interest or pleasure in doing things: not at all 2. Feeling down, depressed, or hopeless: not at all 3. Trouble falling or staying asleep, or sleeping too much: more than half the days 4. Feeling tired or having little energy: nearly every day 5. Poor appetite or overeating: several days 6. Feeling bad about yourself - or that you are a failure or have let yourself or your family down: several days 7. Trouble concentrating on things, such as reading the newspaper or watching television: more than half the days 8. Moving or speaking so slowly that other people could have noticed. Or the opposite - being so fidgety or restless that you have been moving around a lot more than usual: several days 9. Thoughts that you would be better off or of hurting yourself in some way: not at all Total score: 10 Depression Screening Interpretation: Positive Depression Screening Follow-up: Existing condition and In treatment Depression Screening Done: Yes Source: Developed by Drs. Orlin Marroquin, Karen Gutierrez, Td Clifford and colleagues, with an educational bisi from [employer]. Thrive Questionnaire Date Thrive assessed: 12/18/24 I am a: Patient What is your living situation today?: I have a steady place to live Within the past 12 months, did the food you bought not last and you didn't have the money to get more?: Never true Within the past 12 months, did you worry whether your food would run out before you got money to buy more?: Never true Do you have trouble paying for medicines?: No Do you have trouble getting transportation to medical appointments?: No Do you have trouble paying your heating and electricity bill?: No Do you have trouble taking care of your child, family member or friend?: No Do you have trouble with day-to-day activities such as bathing, preparing meals, shopping, managing finances, etc.?: Yes Are you currently unemployed and looking for a job?: No Are you interested in more education?: No Please select the resources that you would like help with: None Currently or been in a relationship where the following occur: No concerns reported THRIVE Score: 0 AUDIT C Alcohol Use Questionnaire (AUDIT-C) 1. How often do you have a drink containing alcohol?: Monthly or less 2. How many drinks containing alcohol do you have on a typical day when you are drinking?: 1 or 2 3. How often do you have six or more drinks on one occasion?: Never Total Score: 1 MARY KATE-7 AMB Questionnaire MARY KATE-7 Date MARY KATE - 7 assessed: 12/18/24 Feeling nervous, anxious, or on edge: 1 = Several days Not being able to stop or control worryin = Several days Worrying too much about different things: 1 = Several days Trouble relaxin = More than half the days Being so restless that it is hard to sit still: 1 = Several days Becoming easily annoyed or irritable: 1 = Several days Feeling afraid as if something awful might happen: 0 = Not at all Total MARY KATE-7 score (0-4 normal; 5-9 mild; 10-14 moderate; 15-21 severe): 7 Source: Developed by Drs. Orlin Marroquin, Karen Gutierrez, Td Clifford and colleagues, with an educational bisi from [employer]. Review of Systems Const Denies body aches, Denies fatigue, Denies fever(s), Denies frequent falls, Denies headache(s) and Denies weakness Eyes Reports no additional complaints and Denies change in vision ENT Denies dysphagia, Denies dizziness, Denies facial pain, Denies headache(s), Denies nasal congestion and Denies odynophagia Card Denies chest pain, Denies syncope, Denies irregular heart rhythm, Denies leg edema, Denies lightheadedness and Denies dyspnea Resp Denies cough and Denies dyspnea GI Denies constipation, Denies dysphagia, Denies dyspepsia, Denies diarrhea, Denies nausea, Denies odynophagia and Denies vomiting Denies urinary frequency, Denies dysuria, Denies urinary hesitancy and Denies urinary urgency Musc Denies back pain and Denies myalgias Skin/Breast Reports system reviewed and no additional complaints, except as documented Neuro Denies dizziness, Denies syncope, Denies frequent falls, Denies headache(s) and Denies weakness Psych Reports no additional complaints Endo Denies fatigue Physical exam (Primary Care) Vital Signs: Last Vital Signs Pulse 76 12/18/24 14:24 BP 118/78 12/18/24 14:24 Pulse Ox 98 12/18/24 14:24 Oxygen Delivery Method Room Air 12/18/24 14:24 BMI result Body Mass Index 37.7 Tobacco/Smoking Status: Tobacco use Status Tobacco use date assessed 12/18/24 12/18/24 14:31 Patient Tobacco Use Status Never used Tobacco 12/18/24 14:31 e-Cigarette/Vaping Use Never Used 12/18/24 14:31 PHQ-9: PHQ-9 Score PHQ-9: Total score 10 12/18/24 17:27 Depression Screening Interpretation: Positive Depression Screening Follow-up: Existing condition and In treatment Thrive Assessment: Date of Thrive Assessment Date Thrive assessed 12/18/24 12/18/24 14:31 Currently or been in a relationship where the following occur: No concerns reported Const General: cooperative, healthy appearing, comfortable and no acute distress Orientation/consciousness: patient oriented x3 HENMT Head: Yes normocephalic Ears: hearing grossly normal bilaterally, external ears normal, TM's normal bilaterally and EAC's normal General nose exam: Normal external nose present Face and sinus: Yes normal facial exam and Yes sinuses nontender Mouth: Normal oral and palatal mucosa present and tongue normal Throat: Yes posterior oropharynx normal Eyes General: appearance normal, both eyes and all related structures Conjunctivae: conjunctivae normal Pupils: Equal, round and reactive pupils present EOM: EOMs intact bilaterally and No Nystagmus present Neck Neck: Yes normal visual inspection, Yes full ROM and Yes no lymphadenopathy Chest Chest palpation & inspection: normal inspection of the chest Resp Effort & Inspection: normal respiratory effort Auscultation: clear to auscultation bilaterally, no crackles, no rales, no rhonchi, no wheezes and breath sounds present Cardio Rate: regular rate Rhythm: regular rhythm Peripheral pulses: radial pulses present and dorsalis pedis present GI Inspection: Yes normal to inspection and No Abdominal wall edema Palpation (GI): Soft to palpation, not firm and nontender Auscultation: normal bowel sounds Rectal Exam - Female: deferred General: Yes no CVA tenderness Back/Spine/Pelvis Back: no CVA tenderness Skin General skin exam: no rashes or lesions noted Neuro General: patient oriented x3 Cranial nerves: Yes Equal, round and reactive pupils present, Yes Midline tongue present, Yes Ability to bilaterally elevate shoulders present and No Nystagmus present Gait exam (Neuro): Normal gait present Extrem Other: No swelling, redness, warmth or tenderness to the right great toe. Thickened, discolored toenails affecting all toenails General: Yes normal to inspection, Yes full ROM, No no pedal edema and No edema Psych Speech and movement: Normal speech and movement present Affect: normal affect Insight: Good insight present (Psych) Judgement: Good judgement present (Psych) Coding Level of Care Code Est Pt Prev Care 18-39y(44544) Diagnoses Annual physical exam Z00.00 Bipolar 2 disorder F31.81 ADHD (attention deficit hyperactivity disorder), inattentive type F90.0 MARY KATE (generalized anxiety disorder) F41.1 Alcohol use disorder, moderate, in early remission, dependence F10.21 Vitamin D deficiency E55.9 PMDD (premenstrual dysphoric disorder) F32.81 Endometriosis N80.9 Obesity (BMI 30-39.9) E66.9 Onychomycosis B35.1 Pain of right great toe M79.674 Hepatic steatosis K76.0 Bilateral primary osteoarthritis of knee M17.0 Assessment & Plan Assessment & Plan (1) Annual physical exam: Code(s): Z00.00 - Encounter for general adult medical examination without abnormal findings Category: Medical Plan: Patient is up-to-date on all recommended routine screenings and vaccinations for her age. Blood work is not up-to-date and repeat orders have been placed. We will plan to follow up in 3 months. (2) Bipolar 2 disorder: Code(s): F31.81 - Bipolar II disorder Category: Medical Plan: Patient is currently following with tomeka Ross for the outpatient psych clinic and feels good on the current medications. She will continue to make medication adjustments with the clinic. (3) ADHD (attention deficit hyperactivity disorder), inattentive type: Code(s): F90.0 - Attention-deficit hyperactivity disorder, predominantly inattentive type Category: Medical Plan: See above (4) MARY KATE (generalized anxiety disorder): Code(s): F41.1 - Generalized anxiety disorder Category: Medical Plan: See above (5) Alcohol use disorder, moderate, in early remission, dependence: Code(s): F10.21 - Alcohol dependence, in remission Category: Medical Plan: No longer following with the [facility] and has not been drinking in excess. She has had a few glass of wine over the course of the last few months but denies any craving. (6) Vitamin D deficiency: Code(s): E55.9 - Vitamin D deficiency, unspecified Category: Medical Plan: Continue to monitor blood work and continue on supplementation. (7) PMDD (premenstrual dysphoric disorder): Code(s): F32.81 - Premenstrual dysphoric disorder Category: Medical Plan: Currently being managed by the outpatient psych clinic and her caddymaster. (8) Endometriosis: Code(s): N80.9 - Endometriosis, unspecified Category: Medical Plan: Patient is currently following with [facility] gynecology and was referred to a specialist for endometriosis and consideration of hysterectomy. Continue to follow up with gynecology (9) Obesity (BMI 30-39.9): Code(s): E66.9 - Obesity, unspecified Category: Medical Plan: Healthy diet and regular exercise is encouraged. She is seeing weight management clinic in the upcoming weeks (10) Onychomycosis: Code(s): B35.1 - Tinea unguium Category: Medical Plan: Patient has toenail fungus that she has been using topical treatments for with mild relief. She would like to see a training technician and referral was placed today (11) Pain of right great toe: Code(s): M79.674 - Pain in right toe(s) Category: Medical Plan: Patient having pain in the right great toe on exam there is no abnormality. No swelling, tenderness, erythema or pain to palpation. She would like to have an x-ray as she does have occasional pain and believes she may have broken this toe in the past. X-ray ordered (12) Hepatic steatosis: Code(s): K76.0 - Fatty (change of) liver, not elsewhere classified Category: Medical Plan: Healthy diet and regular exercise is encouraged. Plan to continue to monitor LFTs at this time (13) Bilateral primary osteoarthritis of knee: Comment: Dr. Srivastava [facility] Code(s): M17.0 - Bilateral primary osteoarthritis of knee Category: Medical Plan: Currently following with [facility] Dr. Srivastava for consideration of right total knee replacement. Plan Current medication adjustments for anxiety and bipolar disorders will be maintained, as they have been effective in symptom management. ADHD treatment will continue with regular monitoring to assess progress. A specialist referral has been made to explore the option of a hysterectomy for endometriosis, given the ongoing symptoms despite previous treatment. The patient should continue using [id number] antifungal treatments for toenail fungus, which have been effective. An x-ray will be performed to evaluate the right toe fracture that has not healed properly, causing pain. Efforts to manage weight will continue, focusing on maintaining the significant weight loss achieved. Liver enzymes and cholesterol levels will be monitored due to previous elevations. Vitamin D levels will be monitored, with supplementation planned as necessary. Further discussions regarding potential knee replacement surgery for knee osteoarthritis will be held, considering the severe symptoms and impact on mobility. This note was constructed using voice recognition software. While every effort has been made to ensure accuracy and blueprinter, still areas may have been included sometimes these areas may affect the content or meeting of the given symptoms. Total time spent caring for the patient today was 30 minutes. This includes time spent before the visit reviewing the chart, time spent during the visit, and time spent after the visit and documentation. Patient was informed and verbally consented to the use of an ambient scribe for clinic note documentation during this visit. Orders: Orders TSH reflex Free T4 12/18/24 Z13.29 - Encounter for screening for other suspected endocrine disorder Free T4 (Free Thyroxine) 12/18/24 Z13.29 - Encounter for screening for other suspected endocrine disorder Lipid Panel 12/18/24 Z13.220 - Encounter for screening for lipoid disorders XR foot RT 2V 12/18/24 M79.674 - Pain in right toe(s) Comprehensive Met. Panel 12/18/24 R79.89 - Other specified abnormal findings of blood chemistry, Z00.00 - Encounter for general adult medical examination without abnormal findings Vitamin D 25-OH Total 12/18/24 E55.9 - Vitamin D deficiency, unspecified, Z00.00 - Encounter for general adult medical examination without abnormal findings Vitamin B12 and Folate 12/18/24 E55.9 - Vitamin D deficiency, unspecified, Z13.21 - Encounter for screening for nutritional disorder Complete Blood Count Auto Diff 12/18/24 N94.6 - Dysmenorrhea, unspecified, Z00.00 - Encounter for general adult medical examination without abnormal findings Referrals Podiatry Referral B35.1 - Tinea unguium Medications: Discontinued tirzepatide (weight loss) (Zepbound) for 4 weeks Discontinued Reason: Patient no longer taking 2.5 mg (0.5 mL) subcut QWEEK 2 mL 0RF
[2024-12-18 14:24] VITALS: BP 118/78; PULSE 76; O2SAT 98; BMI 37.7
== END 2024-12-18 15:31 | disposition home or self-care (01) ==
LOC: HO.HMCH 14:08
DX: Z00.00 Encounter for general adult medical examination without abnormal findings (principal); F31.81 Bipolar II disorder; F90.0 Attention-deficit hyperactivity disorder, predominantly inattentive type; F41.1 Generalized anxiety disorder; F10.21 Alcohol dependence, in remission; E55.9 Vitamin D deficiency, unspecified; F32.81 Premenstrual dysphoric disorder; N80.9 Endometriosis, unspecified; E66.9 Obesity, unspecified; B35.1 Tinea unguium; M79.674 Pain in right toe(s); K76.0 Fatty (change of) liver, not elsewhere classified; M17.0 Bilateral primary osteoarthritis of knee

== ENCOUNTER 2025-02-28 15:39 | Outpatient (AMB) | payer OTHER, SELFPAY ==
--- NOTE | 2025-02-28 15:46 | MHC.OFFVISPS ---
Intake Intake Visit Reasons: depression Tissue Coordinator Required: No Allergies amoxicillin (AMOXICILLIN) Allergy (Unknown, Verified 12/20/24 08:50) HIVES cephalexin (From Keflex) Allergy (Verified 12/20/24 08:50) Unknown risperidone (From Risperdal) Allergy (Verified 12/20/24 08:50) Unknown fluoxetine (Prozac) Adverse Reaction (Unknown, Verified 12/20/24 08:50) rash - not sure disulfiram (From Antabuse) Adverse Reaction (Verified 12/20/24 08:50) Rash Medication List - Last Reconciled 02/28/25 by Maria D Benson APRN aripiprazole (Abilify) 2 mg PO BEDTIME celecoxib 100 mg PO DAILY Held on 02/11/24. Instructions: Resume on 02/17/24. cholecalciferol (vitamin D3) 50 mcg PO DAILY dextroamphetamine-amphetamine 30 mg (Adderall) 30 mg PO DAILY@1400 dextroamphetamine-amphetamine 30 mg ER (Adderall XR) 30 mg PO QAM gabapentin 200 mg (2 x 100 mg) PO TID lamotrigine (Lamictal) 200 mg PO DAILY thiamine HCl (vitamin B1) 100 mg PO DAILY HPI- Psychiatric Chief Complaint: depression HPI Narrative: Pt here for ADHD and Bipolar do follow up. Pt reports improved mood and ADD symptoms. mood stable; anxiety moderate pt coping well overall ADHD symptoms improved -she is working FT and managing home life better. pt more focused, more able to stay on tasks, less distracted No side effects from increased adderall she struggles with the afternoon demands of cooking, helping kids with homework, managing family life after work. She denies side effects from medications appetite and sleep intact no juju noted She denies SI or HI reports no etoh abuse; denies illicit/recreational drug use Past Psychiatric History: outpt therapist several over past 20 yrs. she is currently on wait list t [facility] Subjective Subjective Subjective Medication Compliance: Yes Side effects from medications: No Review of Systems Medical Review of Systems: unchanged Mental Status Exam Mental Status Exam Patient Appearance: Well Grooomed and Appropriate Patient Orientation: Person, Place, Time and Situation Level of Consciousness: Awake, Appropriate and Alert Patient Behavior: Appropriate and Cooperative Mood Description: Cheerful and Anxious Affect Description: Cheerful and Anxious Patient Cognition Impaired: No Ability to Follow Directions: Good Speech Pattern: Clear and Appropriate Memory Description: Intact Hallucinations: None Delusions: Not Present Thought Process: Intact, Distracted and Goal Oriented Thought Content: positive for Intact, positive for Goal Oriented and positive for Loose Associations Judgement: Good Assessment and Plan Assessment & Plan (1) ADHD (attention deficit hyperactivity disorder), inattentive type: Status: Acute Code(s): F90.0 - Attention-deficit hyperactivity disorder, predominantly inattentive type (2) Bipolar 2 disorder: Status: Acute Code(s): F31.81 - Bipolar II disorder (3) MARY KATE (generalized anxiety disorder): Status: Acute Code(s): F41.1 - Generalized anxiety disorder Plan Continue adderall XR 30mg at 6 am and adderall 30mg in afternoon at 2pm continue other meds per below return in 3months and then will refer back to PCP for continued care fi pt continues to be stable. Medications: Refilled dextroamphetamine-amphetamine 30 mg ER (Adderall XR) Partial Fill upon patient request. 30 mg PO QAM 30 caps 0RF F90.0 - Attention-deficit hyperactivity disorder, predominantly inattentive type dextroamphetamine-amphetamine 30 mg (Adderall) Partial Fill upon patient request. 30 mg PO DAILY@1400 30 tabs 0RF F90.0 - Attention-deficit hyperactivity disorder, predominantly inattentive type thiamine HCl (vitamin B1) 100 mg PO DAILY 30 caps 2RF cholecalciferol (vitamin D3) 50 mcg PO DAILY 30 caps 2RF Discontinued aripiprazole (Abilify) Discontinued Reason: Doctor's Order 2 mg PO BEDTIME 90 tabs 1RF Orders: Orders Vitamin B1 Today F10.21 - Alcohol dependence, in remission, F90.0 - Attention-deficit hyperactivity disorder, predominantly inattentive type Counseling and coordination of Care Pt. Self Management counseling: Maintenance-social rhythm, Mod caffeine/ETOH intake, Nutrition education and improvement, Sleep hygiene and General coping skills Medication management counseling: Effectiveness, Side effects, Dosing range, Duration, Drug interaction and Adherence Diagnosis and Prognosis Counseling: Accuracy of diagnosis, Prognosis over time, Impact of diagnosis on life functions, Impact of family relationship, Problematic behaviors secondary to diagnosis and Adequacy of current interventions Details: I spent 30 minutes reviewing the record, seeing the patient and documenting in the medical record. Counseling provided to the patient/caregiver as outlined below. Addressed patient/caregiver concerns regarding current medication regime including effective adherence. Addressed patient/caregiver concerns regarding diagnosis and prognosis including accuracy of diagnosis, prognosis over time, impact of diagnosis. Addressed patient/caregiver concerns regarding impact of recent stressors. [facility] Medical History Dysmenorrhea Encounter for well woman exam with routine gynecological exam Cluster headache syndrome MARY KATE (generalized anxiety disorder) ADHD (attention deficit hyperactivity disorder), inattentive type Bipolar 2 disorder PMDD (premenstrual dysphoric disorder) Endometriosis Alcohol use disorder, moderate, dependence Shortness of breath Alcohol abuse COVID-19 Surgical History Hx of tubal ligation S/P endometrial ablation Hx of section Hx of shoulder surgery Hx of right knee surgery Hx of left knee surgery Family History Mother Cervical ca Father Diabetes Kidney disease Sleep apnea Thyroid disease Family/Other History of breast cancer Other Mental health disorder Substance use disorder Social History Household Members: Spouse Housing: House Do you presently have visiting nurse or other home services: No Alcohol intake: former Patient Tobacco Use Status: Never used Tobacco e-Cigarette/Vaping Use: Never Used Second Hand Smoke Exposure: No service: No Current occupational status: employed 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 Grew up in area with [place] she is youngest of 4 sibs. Substance History: etoh heavily n past - now 1 x a cynthia. pt reports tobacco puches currently Trauma History: denies Coding Level of Care Code Est Pt Level 4 (76369) Diagnoses ADHD (attention deficit hyperactivity disorder), inattentive type F90.0 Bipolar 2 disorder F31.81 MARY KATE (generalized anxiety disorder) F41.1
== END 2025-02-28 16:17 | disposition home or self-care (01) ==
LOC: HO.HOP 15:39
PROVIDERS: Visit Provider Clinical Nurse Specialist Psychiatric/Mental Health
DX: F90.0 Attention-deficit hyperactivity disorder, predominantly inattentive type (principal); F31.81 Bipolar II disorder; F41.1 Generalized anxiety disorder
CPT/HCPCS: 99214

== ENCOUNTER → 2025-02-28 15:39 | Outpatient (BNVA) | payer OTHER, SELFPAY | PROVIDERS: Visit Provider Clinical Nurse Specialist Psychiatric/Mental Health | DX: F31.81 Bipolar II disorder (principal); F90.0 Attention-deficit hyperactivity disorder, predominantly inattentive type; F41.1 Generalized anxiety disorder | CPT/HCPCS: 99212 ==

== ENCOUNTER 2025-03-20 14:40 | Outpatient (REF) | payer OTHER, SELFPAY ==
--- NOTE | ~2025-03-20 | XR_ITS ---
EXAMINATION: XR FOOT, RIGHT CLINICAL INFORMATION: M79.674 - Pain in right toe(s) COMPARISON: None available. TECHNIQUE: AP, lateral, and oblique views of the right foot. FINDINGS: No acute cortical disruption or malalignment. Degenerative changes in the interphalangeal joints of the first and second toes. No gross bony erosions. No gross soft tissue calcifications. No lytic or blastic lesions. Small plantar calcaneal spur. No subcutaneous emphysema. No metallic or radiopaque foreign body. No gross joint effusion. XR/XR foot RT 2V IMPRESSION: Mild osteoarthrosis/osteoarthritis without acute fracture or dislocation. Small plantar calcaneal spur. Electronically signed by: Gage Dubois MD 03/20/2025 03:19 PM [facility]
[2025-03-20 16:03] LABS: MANUAL DIFF FLAG NO
[2025-03-20 16:11] LABS: Hematocrit 39.1 % (37.0-47.0); Hemoglobin 13.7 g/dl (12.0-16.0); Imm Gran Abs Auto 0.02 X10*3/uL (0.00-0.03); Imm Gran Pct Auto 0.2 % (0.0-0.4); Lymphocytes Absolute Auto 1.9 X10*3/uL (1.2-4.9); Mean Corpuscular HGB Conc 35.0 g/dl (31.0-35.0); Mean Corpuscular Hemoglobin 31.1 pg (27.0-33.0); Mean Corpuscular Volume 88.9 fL (80.0-98.0); NRBC Abs Auto 0.000 X10*3/uL (0.0-0.012); NRBC Pct Auto 0.0 /100WBC (0.0-0.2); Platelet Count 266 X10*3/uL (160-400); Red Blood Count 4.40 X10*6/uL (4.20-5.50); White Blood Count 9.2 X10*3/uL (4.8-10.8)
[2025-03-20 16:37] LABS: Alanine Aminotransferase 23 U/L (0-31); Albumin Level 4.1 g/dL (3.5-5.0); Alkaline Phosphatase 81 U/L (39-117); Anion Gap 11 (12-20); Aspartate Amino Transferase 18 U/L (5-31); Blood Urea Nitrogen 12 mg/dL (9-16); Calcium 9.1 mg/dL (8.4-10.2); Carbon Dioxide 28 mmol/L (22-29); Chloride 106 mmol/L (96-108); Cholesterol 171 mg/dL (<200); Estimated Glomerular Filt Rate > 60; HDL Cholesterol 62 mg/dL (>40); Potassium 3.6 mmol/L (3.3-5.1); Sodium 141 mmol/L (135-145); Total Protein 7.0 g/dL (6.5-8.0); Triglycerides 158 mg/dL (<150)
[2025-03-20 16:41] LABS: Free T4 (Free Thyroxine) 0.83 ng/dL (0.71-1.85)
[2025-03-20 17:11] LABS: Folate 5.1 ng/mL (> or = 4.0); Vitamin B12 365 pg/mL (200-900)
== END 2025-03-20 14:41 | disposition home or self-care (01) ==
LOC: HO.HMGCX 14:40
PROVIDERS: Visit Provider Clinical Nurse Specialist Psychiatric/Mental Health
DX: Z00.00 Encounter for general adult medical examination without abnormal findings (principal); Z13.29 Encounter for screening for other suspected endocrine disorder; Z13.220 Encounter for screening for lipoid disorders; Z13.21 Encounter for screening for nutritional disorder; E55.9 Vitamin D deficiency, unspecified; R79.89 Other specified abnormal findings of blood chemistry; M79.674 Pain in right toe(s); N94.6 Dysmenorrhea, unspecified; F10.21 Alcohol dependence, in remission; F90.0 Attention-deficit hyperactivity disorder, predominantly inattentive type
CPT/HCPCS: 36415; 73620; 80053; 80061; 82306; 82607; 82746; 84425; 84439; 84443; 85025

== ENCOUNTER → 2025-03-20 14:44 | Outpatient (BNV) | payer OTHER, SELFPAY | PROVIDERS: Visit Provider Radiology Diagnostic Radiology | DX: M19.071 Primary osteoarthritis, right ankle and foot (principal); M77.31 Calcaneal spur, right foot | CPT/HCPCS: 73620 ==

== ENCOUNTER 2025-03-21 14:34 | Outpatient (AMB) | payer OTHER, SELFPAY ==
[2025-03-21 14:42] VITALS: BP 128/86; PULSE 84; TEMP 36.2; O2SAT 98; BMI 38.5
--- NOTE | 2025-03-21 14:42 | A.OFFPC_ITS ---
Vital Signs 03/21/25 14:42 Height 5 ft 2 in Weight 210 lb 6 oz BMI 38.5 BP 128/86 Blood Pressure Location Lt brachial Position Sitting Pulse 84 Pulse Source Pulse Oximeter Temp 97.1 F Temp Source Temporal Artery Scan Pulse Oximetry (%) 98 Oxygen Delivery Method Room Air Intake Visit Reasons: f/u weight loss Allergies amoxicillin (AMOXICILLIN) Allergy (Unknown, Verified 03/21/25 14:44) HIVES cephalexin (From Keflex) Allergy (Verified 03/21/25 14:44) Unknown risperidone (From Risperdal) Allergy (Verified 03/21/25 14:44) Unknown fluoxetine (Prozac) Adverse Reaction (Unknown, Verified 03/21/25 14:44) rash - not sure disulfiram (From Antabuse) Adverse Reaction (Verified 03/21/25 14:44) Rash Medication List - Last Reconciled 03/21/25 by Marianne Hernandez PA-C celecoxib 100 mg PO DAILY Held on 02/11/24. Instructions: Resume on 02/17/24. cholecalciferol (vitamin D3) 50 mcg PO DAILY dextroamphetamine-amphetamine 30 mg (Adderall) 30 mg PO DAILY@1400 dextroamphetamine-amphetamine 30 mg ER (Adderall XR) 30 mg PO QAM gabapentin 200 mg (2 x 100 mg) PO TID lamotrigine (Lamictal) 200 mg PO DAILY thiamine HCl (vitamin B1) 100 mg PO DAILY Tobacco use date assessed: 03/21/25 Dental Screening Dental Screen Date: 03/21/25 Did you have a dental visit in the last 12 months?: No Did you have a dental problem in the last 6 months where you did not have access to dental care?: No Was dental information given to patient?: No HPI f/u weight loss HPI Details 40-year-old female with past medical his tory bipolar 2 disorder, elevated LFTs and alcohol use disorder last seen 12/2024 coming in for follow up. In review of the notes, patient was seen by psych 02/2025 continued on Adderall and follow up in 3 months. Presenting for a follow-up visit to address several ongoing health concerns and recent life changes. She reports a significant increase in stress since late December due to starting a new full-time job, changes in her children's school schedules, and multiple family and personal events, including her wedding anniversary and friend's baby complications. Regarding her mental health, the patient feels she is managing her anxiety well despite the recent stressors, using her anxiety medication one to three times daily as needed. She reports that her mood swings related to her bipolar disorder have stabilized. In terms of substance use, she has been doing well with alcohol, consuming it only on special occasions without cravings. Regarding her weight, the patient was doing well on weight loss medication but had to stop due to a change in insurance coverage. She has since gained approximately 13 pounds from her lowest weight of 197 lbs. The patient is not interested in bariatric surgery. The patient has multiple foot complaints, including a history of plantar fasciitis which has improved significantly with the use of barefoot-style shoes. For the past four months, she has experienced intermittent pain, swelling, and tenderness on the top of the left foot, which occurs regardless of footwear. She missed her podiatry appointment but wishes to reschedule. She also reports worsening varicose veins in her legs, causing aching, throbbing, and pain, as well as hemorrhoids and possible varicose veins in the perineal area. She also mentions chronic back pain and previous workup revealed multiple disc herniations and degenerative disc disease. We do not have records of this and plan to obtain imaging. [facility] Medical History Dysmenorrhea Encounter for well woman exam with routine gynecological exam Cluster headache syndrome MARY KATE (generalized anxiety disorder) ADHD (attention deficit hyperactivity disorder), inattentive type Bipolar 2 disorder PMDD (premenstrual dysphoric disorder) Endometriosis Alcohol use disorder, moderate, dependence Shortness of breath Alcohol abuse COVID-19 Surgical History Hx of tubal ligation S/P endometrial ablation Hx of section Hx of shoulder surgery Hx of right knee surgery Hx of left knee surgery Family History Mother Cervical ca Father Diabetes Kidney disease Sleep apnea Thyroid disease Family/Other History of breast cancer Other Mental health disorder Substance use disorder Social History Household Members: Spouse Housing: House Do you presently have visiting nurse or other home services: No Alcohol intake: former Patient Tobacco Use Status: Never used Tobacco e-Cigarette/Vaping Use: Never Used Second Hand Smoke Exposure: No service: No Current occupational status: employed 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 1. Little interest or pleasure in doing things: not at all 2. Feeling down, depressed, or hopeless: not at all 3. Trouble falling or staying asleep, or sleeping too much: more than half the days 4. Feeling tired or having little energy: nearly every day 5. Poor appetite or overeating: several days 6. Feeling bad about yourself - or that you are a failure or have let yourself or your family down: several days 7. Trouble concentrating on things, such as reading the newspaper or watching television: more than half the days 8. Moving or speaking so slowly that other people could have noticed. Or the opposite - being so fidgety or restless that you have been moving around a lot more than usual: several days 9. Thoughts that you would be better off or of hurting yourself in some way: not at all Total score: 10 Depression Screening Interpretation: Positive Depression Screening Follow-up: Existing condition and In treatment Depression Screening Done: Yes Source: Developed by Drs. Orlin Marroquin, Karen Gutierrez, Td Clifford and colleagues, with an educational bisi from [employer]. Thrive Questionnaire Date Thrive assessed: 12/18/24 I am a: Patient What is your living situation today?: I have a steady place to live Within the past 12 months, did the food you bought not last and you didn't have the money to get more?: Never true Within the past 12 months, did you worry whether your food would run out before you got money to buy more?: Never true Do you have trouble paying for medicines?: No Do you have trouble getting transportation to medical appointments?: No Do you have trouble paying your heating and electricity bill?: No Do you have trouble taking care of your child, family member or friend?: No Do you have trouble with day-to-day activities such as bathing, preparing meals, shopping, managing finances, etc.?: Yes Are you currently unemployed and looking for a job?: No Are you interested in more education?: No Please select the resources that you would like help with: None Currently or been in a relationship where the following occur: No concerns reported THRIVE Score: 0 AUDIT C Alcohol Use Questionnaire (AUDIT-C) 1. How often do you have a drink containing alcohol?: Monthly or less 2. How many drinks containing alcohol do you have on a typical day when you are drinking?: 1 or 2 3. How often do you have six or more drinks on one occasion?: Never Total Score: 1 MARY KATE-7 AMB Questionnaire MARY KATE-7 Date MARY KATE - 7 assessed: 12/18/24 Feeling nervous, anxious, or on edge: 1 = Several days Not being able to stop or control worryin = Several days Worrying too much about different things: 1 = Several days Trouble relaxin = More than half the days Being so restless that it is hard to sit still: 1 = Several days Becoming easily annoyed or irritable: 1 = Several days Feeling afraid as if something awful might happen: 0 = Not at all Total MARY KATE-7 score (0-4 normal; 5-9 mild; 10-14 moderate; 15-21 severe): 7 Source: Developed by Drs. Orlin Marroquin, Karen Gutierrez, Td Clifford and colleagues, with an educational bisi from [employer]. Review of Systems Const Denies body aches, Denies chills, Denies fever(s), Denies headache(s) and Denies poor appetite Eyes Reports no additional complaints ENT Denies dizziness and Denies headache(s) Card Denies chest pain, Denies lightheadedness and Denies dyspnea Resp Denies dyspnea GI Denies abdominal pain, Denies nausea and Denies vomiting Reports no additional complaints Musc Reports as per HPI, Denies abnormal gait and Reports back pain Skin/Breast Reports system reviewed and no additional complaints, except as documented Neuro Denies abnormal gait, Denies dizziness and Denies headache(s) Psych Reports no additional complaints Physical exam (Primary Care) Vital Signs: Last Vital Signs Temp 97.1 F 03/21/25 14:42 Pulse 84 03/21/25 14:42 BP 128/86 03/21/25 14:42 Pulse Ox 98 03/21/25 14:42 Oxygen Delivery Method Room Air 03/21/25 14:42 BMI result Body Mass Index 38.5 Tobacco/Smoking Status: Tobacco use Status Tobacco use date assessed 03/21/25 03/21/25 14:45 Patient Tobacco Use Status Never used Tobacco 03/21/25 14:42 e-Cigarette/Vaping Use Never Used 03/21/25 14:42 PHQ-9: PHQ-9 Score PHQ-9: Total score 10 03/21/25 16:45 Depression Screening Interpretation: Positive Depression Screening Follow-up: Existing condition and In treatment Thrive Assessment: Date of Thrive Assessment Date Thrive assessed 12/18/24 03/21/25 14:42 Currently or been in a relationship where the following occur: No concerns repo rted Const General: cooperative, healthy appearing, comfortable and no acute distress Orientation/consciousness: patient oriented x3 HENMT Head: Yes normocephalic Ears: hearing grossly normal bilaterally General nose exam: Normal external nose present Eyes General: appearance normal, both eyes and all related structures Conjunctivae: conjunctivae normal Neck Neck: Yes full ROM and Yes no lymphadenopathy Resp Effort & Inspection: normal respiratory effort Auscultation: clear to auscultation bilaterally, no crackles, no rales, no rhonchi and no wheezes Cardio Rate: regular rate Rhythm: regular rhythm Skin General skin exam: no rashes or lesions noted Neuro General: patient oriented x3 Gait exam (Neuro): Normal gait present Extrem Other: Tenderness to palpation over dorsal aspect of left foot General: Yes normal to inspection, Yes full ROM and No edema Psych Affect: normal affect Attitude: cooperative Insight: Good insight present (Psych) Judgement: Good judgement present (Psych) Coding Level of Care Code Est Pt Level 4 (35216) Diagnoses ADHD (attention deficit hyperactivity disorder), inattentive type F90.0 MARY KATE (generalized anxiety disorder) F41.1 Alcohol use disorder, moderate, in early remission, dependence F10.21 Obesity (BMI 30-39.9) E66.9 Onychomycosis B35.1 Left foot pain M79.672 Varicose veins of both lower extremities I83.93 Joint pain M25.50 Back pain M54.9 Assessment & Plan Assessment & Plan (1) ADHD (attention deficit hyperactivity disorder), inattentive type: Code(s): F90.0 - Attention-deficit hyperactivity disorder, predominantly inattentive type Category: Medical Plan: Continue to follow with outpatient psych clinic feels good on the Adderall at this time. (2) MARY KATE (generalized anxiety disorder): Code(s): F41.1 - Generalized anxiety disorder Category: Medical Plan: Continue to follow with outpatient psych clinic and feels good on her current medication regimen. (3) Alcohol use disorder, moderate, in early remission, dependence: Code(s): F10.21 - Alcohol dependence, in remission Category: Medical Plan: Has been abstaining from alcohol with the exception of social situations and denies any cravings at this time. (4) Obesity (BMI 30-39.9): Code(s): E66.9 - Obesity, unspecified Category: Medical Plan: Healthy diet and regular exercise is encouraged. Referral was placed to nutrition today. (5) Onychomycosis: Code(s): B35.1 - Tinea unguium Category: Medical Plan: Recommended patient follow up with the behavioral medical director and symptoms have improved at this time. (6) Left foot pain: Code(s): M79.672 - Pain in left foot Category: Medical Plan: For left foot pain plan to obtain x-ray for further evaluation and recommend her follow up with her behavioral medical director (7) Varicose veins of both lower extremities: Code(s): I83.93 - Asymptomatic varicose veins of bilateral lower extremities Category: Medical Plan: For varicose veins patient is requesting referral to vascular surgery. Recommend patient also use compression stockings as she is on her feet for long periods of time. Recommend leg elevation and exercise as tolerated (8) Joint pain: Code(s): M25.50 - Pain in unspecified joint Category: Medical Plan: For diffuse joint pain and arthritis in multiple joints plan to obtain rheumatoid arthritis testing at patient request (9) Back pain: Code(s): M54.9 - Dorsalgia, unspecified Category: Medical Plan: For her back pain plan to obtain imaging and consider referral to [facility]. Patient may use Tylenol and ibuprofen as needed as well as lidocaine patches and heating pads. Plan This note was constructed using voice recognition software. While every effort has been made to ensure accuracy and district agent, still areas may have been included sometimes these areas may affect the content or meeting of the given symptoms. Total time spent caring for the patient today was 20 minutes. This includes time spent before the visit reviewing the chart, time spent during the visit, and time spent after the visit and documentation. Patient was informed and verbally consented to the use of an ambient scribe for clinic note documentation during this visit. Orders: Orders XR thoracic spine 2V 03/21/25 M54.9 - Dorsalgia, unspecified XR foot LT 2V 03/21/25 M79.672 - Pain in left foot Rheumatoid Factor 03/21/25 M25.50 - Pain in unspecified joint XR lumbar spine 2-3V 03/21/25 M54.9 - Dorsalgia, unspecified XR cervical spine 2V 03/21/25 M54.9 - Dorsalgia, unspecified Referrals [employer] Nutrition Referral E66.9 - Obesity, unspecified Vascular Surgery Referral I83.93 - Asymptomatic varicose veins of bilateral lower extremities
== END 2025-03-21 15:15 | disposition home or self-care (01) ==
LOC: HO.HMCH 14:35
DX: M79.672 Pain in left foot (principal); F10.21 Alcohol dependence, in remission; E66.9 Obesity, unspecified; Z68.38 Body mass index [BMI] 38.0-38.9, adult; F90.0 Attention-deficit hyperactivity disorder, predominantly inattentive type; M54.9 Dorsalgia, unspecified; F41.1 Generalized anxiety disorder; B35.1 Tinea unguium; I83.93 Asymptomatic varicose veins of bilateral lower extremities; M25.50 Pain in unspecified joint

== ENCOUNTER → 2025-03-21 14:34 | Outpatient (BNVA) | payer OTHER, SELFPAY | DX: F90.0 Attention-deficit hyperactivity disorder, predominantly inattentive type (principal); F41.1 Generalized anxiety disorder; F10.21 Alcohol dependence, in remission; E66.9 Obesity, unspecified; B35.1 Tinea unguium; M79.672 Pain in left foot; I83.93 Asymptomatic varicose veins of bilateral lower extremities; M25.50 Pain in unspecified joint; M54.9 Dorsalgia, unspecified; Z13.31 Encounter for screening for depression; Z79.899 Other long term (current) drug therapy | CPT/HCPCS: 96127; 99212 ==

== ENCOUNTER 2025-03-25 14:51 | Outpatient (REF) | payer OTHER, SELFPAY ==
--- NOTE | ~2025-03-25 | XR_ITS ---
EXAMINATION: X-ray cervical spine X-ray thoracic spine X-ray lumbar spine CLINICAL INFORMATION: Dorsalgia COMPARISON: CT cervical spine 06/09/2023 TECHNIQUE: Cervical spine 2 views Thoracic spine 2 views Lumbar spine 3 views FINDINGS: Cervical spine: Visualized from C1-C7 level. No prevertebral soft tissue swelling. Predens space is maintained. Straightening of the cervical curvature. No evidence of acute fracture or traumatic subluxation. No aggressive bony lesion. Disc spaces are maintained. Lung apices are clear. Thoracic spine: The upper thoracic spine is obscured on the lateral projection. In the visualized thoracic spine, no evidence of acute fracture, spondylolisthesis, or suspicious bony lesion. No compression fracture is seen. Disc spaces are maintained. No suspicious finding in the visualized lung. Lumbar spine: No evidence of acute fracture, spondylolisthesis or suspicious bony lesion. Disc spaces are maintained. The posterior elements appear intact. SI joints are symmetric. No abnormal soft tissue calcification. Paraspinal soft tissue appears unremarkable. XR/XR cervical spine 2V IMPRESSION: * The upper thoracic vertebral bodies are obscured on the lateral projection, limiting evaluation. * In the visualized spine, no acute findings seen. Electronically signed by: Edward Berry MD 03/26/2025 11:11 AM [facility] [place]
--- NOTE | ~2025-03-25 | XR_ITS ---
EXAMINATION: X-ray cervical spine X-ray thoracic spine X-ray lumbar spine CLINICAL INFORMATION: Dorsalgia COMPARISON: CT cervical spine 06/09/2023 TECHNIQUE: Cervical spine 2 views Thoracic spine 2 views Lumbar spine 3 views FINDINGS: Cervical spine: Visualized from C1-C7 level. No prevertebral soft tissue swelling. Predens space is maintained. Straightening of the cervical curvature. No evidence of acute fracture or traumatic subluxation. No aggressive bony lesion. Disc spaces are maintained. Lung apices are clear. Thoracic spine: The upper thoracic spine is obscured on the lateral projection. In the visualized thoracic spine, no evidence of acute fracture, spondylolisthesis, or suspicious bony lesion. No compression fracture is seen. Disc spaces are maintained. No suspicious finding in the visualized lung. Lumbar spine: No evidence of acute fracture, spondylolisthesis or suspicious bony lesion. Disc spaces are maintained. The posterior elements appear intact. SI joints are symmetric. No abnormal soft tissue calcification. Paraspinal soft tissue appears unremarkable. XR/XR thoracic spine 2V IMPRESSION: * The upper thoracic vertebral bodies are obscured on the lateral projection, limiting evaluation. * In the visualized spine, no acute findings seen. Electronically signed by: Edward Berry MD 03/26/2025 11:11 AM [facility]
--- NOTE | ~2025-03-25 | XR_ITS ---
EXAMINATION: X-ray cervical spine X-ray thoracic spine X-ray lumbar spine CLINICAL INFORMATION: Dorsalgia COMPARISON: CT cervical spine 06/09/2023 TECHNIQUE: Cervical spine 2 views Thoracic spine 2 views Lumbar spine 3 views FINDINGS: Cervical spine: Visualized from C1-C7 level. No prevertebral soft tissue swelling. Predens space is maintained. Straightening of the cervical curvature. No evidence of acute fracture or traumatic subluxation. No aggressive bony lesion. Disc spaces are maintained. Lung apices are clear. Thoracic spine: The upper thoracic spine is obscured on the lateral projection. In the visualized thoracic spine, no evidence of acute fracture, spondylolisthesis, or suspicious bony lesion. No compression fracture is seen. Disc spaces are maintained. No suspicious finding in the visualized lung. Lumbar spine: No evidence of acute fracture, spondylolisthesis or suspicious bony lesion. Disc spaces are maintained. The posterior elements appear intact. SI joints are symmetric. No abnormal soft tissue calcification. Paraspinal soft tissue appears unremarkable. XR/XR lumbar spine 2-3V IMPRESSION: * The upper thoracic vertebral bodies are obscured on the lateral projection, limiting evaluation. * In the visualized spine, no acute findings seen. Electronically signed by: Edward Berry MD 03/26/2025 11:11 AM [facility] [place]
--- NOTE | ~2025-03-25 | XR_ITS ---
EXAMINATION: XR FOOT, LEFT CLINICAL INFORMATION: M79.672 - Pain in left foot COMPARISON: None available. TECHNIQUE: AP, lateral, and oblique views of the left foot. FINDINGS: Alignment is anatomic. No visible acute fracture, dislocation or suspicious bony lesion. Small lateral spur at the the first metatarsal head. No erosions. No abnormal soft tissue calcification. Moderate plantar calcaneal spur. Small posterior calcaneal insertional enthesopathy. XR/XR foot LT min 3V IMPRESSION: Calcaneal spurring. Electronically signed by: Edward Berry MD 03/25/2025 03:54 PM EST
== END 2025-03-25 14:52 | disposition home or self-care (01) ==
LOC: HO.HMGCX 14:51
DX: M79.672 Pain in left foot (principal); M25.50 Pain in unspecified joint; M54.9 Dorsalgia, unspecified
CPT/HCPCS: 36415; 72040; 72070; 72100; 73630; 86431

== ENCOUNTER → 2025-03-25 14:57 | Outpatient (BNV) | payer OTHER, SELFPAY | PROVIDERS: Visit Provider Radiology Diagnostic Ultrasound | DX: M77.32 Calcaneal spur, left foot (principal) | CPT/HCPCS: 72040; 72070; 72100; 73630 ==

== ENCOUNTER 2025-04-05 08:42 | Outpatient (AMB) | payer OTHER, SELFPAY ==
[2025-04-05 08:48] VITALS: BP 136/88; PULSE 77; TEMP 36.7; O2SAT 99; BMI 38.0
--- NOTE | 2025-04-05 08:48 | AM.OFFWIN_ITS ---
Intake Vital Signs 04/05/25 08:48 Height 5 ft 2 in Weight 208 lb BMI 38.0 BP 136/88 Blood Pressure Location Lt brachial Position Sitting Pulse 77 Pulse Source Pulse Oximeter Temp 98.1 F Temp Source Oral Pulse Oximetry (%) 99 Oxygen Delivery Method Room Air Intake Visit Reasons: EP Cough, sore throat Intake Note: Patient presents c/o cough, sore throat, post nasal drip, runny/stuffy nose, loss of voice, right ear blocked x1 week. Patient Tobacco Use Status: Never used Tobacco Allergies amoxicillin (AMOXICILLIN) Allergy (Unknown, Verified 04/05/25 08:51) HIVES cephalexin (From Keflex) Allergy (Verified 04/05/25 08:51) Unknown risperidone (From Risperdal) Allergy (Verified 04/05/25 08:51) Unknown fluoxetine (Prozac) Adverse Reaction (Unknown, Verified 04/05/25 08:51) rash - not sure disulfiram (From Antabuse) Adverse Reaction (Verified 04/05/25 08:51) Rash Medication List - Last Reconciled 04/05/25 by Juarez Ayala MD celecoxib 100 mg PO DAILY Held on 02/11/24. Instructions: Resume on 02/17/24. cholecalciferol (vitamin D3) 50 mcg PO DAILY dextroamphetamine-amphetamine 30 mg (Adderall) 30 mg PO DAILY@1400 dextroamphetamine-amphetamine 30 mg ER (Adderall XR) 30 mg PO QAM gabapentin 200 mg (2 x 100 mg) PO TID lamotrigine (Lamictal) 200 mg PO DAILY thiamine HCl (vitamin B1) 100 mg PO DAILY Do you need a note to return to daycare/school/sports/work: No HPI EP Cough, sore throat HPI Details History of Present Illness The patient is a 40 year old individual presenting for evaluation of respiratory symptoms. Acute Bronchitis: - The patient reports a one-week history of progressively worsening stuffy and runny nose, cough, and sore throat. - Associated symptoms include bilateral ear congestion with a feeling of pressure, pain upon swallowing, and some subjective shortness of breath. - The cough is productive of a very smal l amount of mucus. - The patient denies any fevers. - The patient has no history of asthma a nd denies smoking. - A strep test performed during the visi t was negative. Social History: - Tobacco: The patient denies smoking. Diagnostic Results: - Strep Test: Negative. Problem List - Acute Bronchitis Plan - bronchitis. - A prescription for azithromycin (Z-pac k) will be sent to the patient's pharmacy. - A prescription for prednisone 5 mg for three days will be sent to the pharmacy for inflammation. - The patient was advised to increase fl uid intake. Review of Systems - Neurological: No headaches no dizziness - Cardiovascular: No syncope, no chest pain, no palpitations - Gastrointestinal: No nausea vomiting or diarrhea - Endocrine: No polyuria polydipsia no heat intolerance - Genitourinary: No dysuria , no blood in urine Physical Exam General: No acute distress HEENT: Congested nose, erythema throat +, left ear clogged, no acute findings Neck: Supple, pain when swallowing Respiratory system: Able to talk in full sentences, no audible wheeze, slight shortness of breath when active, breathing stable Cardiovascular: S1-S2 regular in rate and rhythm Gastrointestinal: No pain Extremities: No new findings 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 awake oriented x3 motor intact Skin: Normal turgor PFSH Medical History Dysmenorrhea Encounter for well woman exam with routine gynecological exam Cluster headache syndrome MARY KATE (generalized anxiety disorder) ADHD (attention deficit hyperactivity disorder), inattentive type Bipolar 2 disorder PMDD (premenstrual dysphoric disorder) Endometriosis Alcohol use disorder, moderate, dependence Shortness of breath Alcohol abuse COVID-19 Surgical History Hx of tubal ligation S/P endometrial ablation Hx of section Hx of shoulder surgery Hx of right knee surgery Hx of left knee surgery Family History Mother Cervical ca Father Diabetes Kidney disease Sleep apnea Thyroid disease Family/Other History of breast cancer Other Mental health disorder Substance use disorder Social History Household Members: Spouse Housing: House Do you presently have visiting nurse or other home services: No Alcohol intake: former Patient Tobacco Use Status: Never used Tobacco e-Cigarette/Vaping Use: Never Used Second Hand Smoke Exposure: No service: No Current occupational status: employed 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 Cognitive needs: No Hearing needs: No Vision needs: Yes (Glasses) Physical Exam Vital Signs: Last Vital Signs Temp 98.1 F 04/05/25 08:48 Pulse 77 04/05/25 08:48 BP 136/88 04/05/25 08:48 Pulse Ox 99 04/05/25 08:48 Oxygen Delivery Method Room Air 04/05/25 08:48 BMI result Body Mass Index 38.0 Results AMB Rapid Strep AMB Rapid Strep Negative Last Edit by Cha Merritt CMA on 04/05/25 09: 10 Results Reviewed Results Reviewed: Laboratory Last Values Strep Scn [facility] Negative 04/05/25 09:08 Assessment & Plan Assessment & Plan (1) Acute bronchitis: Code(s): J20.9 - Acute bronchitis, unspecified Qualifiers: Bronchitis organism: unspecified organism Qualified Code(s): J20.9 - Acute bronchitis, unspecified Plan Acute Bronchitis: - The patient reports a one-week history of progressively worsening stuffy and runny nose, cough, and sore throat. - Associated symptoms include bilateral ear congestion with a feeling of pressure, pain upon swallowing, and some subjective shortness of breath. - The cough is productive of a very small amount of mucus. - The patient denies any fevers. - The patient has no history of asthma and denies smoking. - A strep test performed during the visit was negative. Social History: - Tobacco: The patient denies smoking. Diagnostic Results: - Strep Test: Negative. Problem List - Acute Bronchitis Plan - bronchitis. - A prescription for azithromycin (Z-pack) will be sent to the patient's pharmacy. - A prescription for prednisone 5 mg for three days will be sent to the pharmacy for inflammation. - The patient was advised to increase fluid intake. Orders: Orders AMB Rapid Strep Screen Today Z13.9 - Encounter for screening, unspecified Medications: New prednisone 5 mg PO DAILY 3 tabs 0RF 3 days azithromycin Take 2 tablets today then 1 daily 250 mg PO ONCE 6 tabs 0RF 5 days J06.9 - Acute upper respiratory infection, unspecified Coding Level of Care Code Est Pt Level 3 (93526) Diagnoses Acute bronchitis, unspecified organism J20.9 Bronchitis organism: unspecified organism
== END 2025-04-05 09:12 | disposition home or self-care (01) ==
PROVIDERS: Visit Provider Internal Medicine
DX: Z13.9 Encounter for screening, unspecified (principal); J20.9 Acute bronchitis, unspecified

== ENCOUNTER → 2025-04-05 08:42 | Outpatient (BNVA) | payer OTHER, SELFPAY | PROVIDERS: Visit Provider Internal Medicine | DX: J20.9 Acute bronchitis, unspecified (principal) | CPT/HCPCS: 87880; 99212 ==

== ENCOUNTER 2025-04-16 08:38 | Outpatient (REF) | payer OTHER, SELFPAY ==
[2025-04-16 11:22] LABS: Resp Syncy Virus RNA Qual PCR NEGATIVE (Negative); SARS COV2 PCR INHOUSE NEGATIVE (Negative)
== END 2025-04-16 08:39 | disposition home or self-care (01) ==
LOC: HO.LAB 08:38
PROVIDERS: Visit Provider Physician Assistant
DX: J06.9 Acute upper respiratory infection, unspecified (principal); R09.89 Other specified symptoms and signs involving the circulatory and respiratory systems; Z13.89 Encounter for screening for other disorder
CPT/HCPCS: 87637; 87880; 99212

== ENCOUNTER 2025-04-16 08:38 | Outpatient (AMB) | payer OTHER, SELFPAY ==
[2025-04-16 08:54] VITALS: BP 132/80; PULSE 103; TEMP 36.7; O2SAT 98; BMI 38.4
--- NOTE | 2025-04-16 08:54 | AM.OFFWIN_ITS ---
Intake Vital Signs 04/16/25 08:54 Height 5 ft 2 in Weight 210 lb BMI 38.4 BP 132/80 Blood Pressure Location Lt brachial Position Sitting Pulse 103 H Pulse Source Pulse Oximeter Temp 98.0 F Temp Source Oral Pulse Oximetry (%) 98 Intake Visit Reasons: EP Cough, sore throat, ear pain, congestion Intake Note: pt is here for cough, sore throat, ear pain with congestion. completed antibiotics with prednisone and still not getting better. Patient Tobacco Use Status: Never used Tobacco Allergies amoxicillin (AMOXICILLIN) Allergy (Unknown, Verified 04/16/25 08:54) HIVES cephalexin (From Keflex) Allergy (Verified 04/16/25 08:54) Unknown risperidone (From Risperdal) Allergy (Verified 04/16/25 08:54) Unknown fluoxetine (Prozac) Adverse Reaction (Unknown, Verified 04/16/25 08:54) rash - not sure disulfiram (From Antabuse) Adverse Reaction (Verified 04/16/25 08:54) Rash Do you need a note to return to daycare/school/sports/work: No HPI HPI Comments History of Present Illness Details History - The patient is a 40 year old individua l presenting with a cough and cold-like symptoms for approximately 3 weeks. Was given a zpak and 5mg pred x 3 days but didn't help. - Initial symptoms included ear pain, co ugh, and a stuffy nose, which showed some improvement before worsening. - The patient's symptoms have been fluct uating between two states. - One state is characterized by allergy- like symptoms, including a dry and burning sensation on the face, tearing and itchy eyes, and runny nose. - The other state involves severe nasal congestion causing inability to smell, a sensation of thick, goopy eyes with blurry vision but no discharge, and a productive cough with foul-tasting phlegm that has caused nausea. - Associated symptoms include slight ama rtness of breath on exertion and after coughing fits, sinus pressure, significant fatigue, and insomnia due to nocturnal coughing, limiting sleep to about three hours per night. - The patient denies fevers, blood in sp utum, and rash. - The patient has taken ibuprofen occasi onally for symptoms. - The patient does not have a history of asthma or COPD and denies smoking or vaping, but has used an inhaler in the distant past. - The patient's 7-year-old daughter rece ntly had a cold but recovered. Review of Systems - Constitutional: Reports fatigue; denie s fever. - Eyes: Reports tearing, watering, itchi ng, and a sensation of being thick and goopy with blurred vision. - ENT: Reports ear pain, nasal congestio n, rhinorrhea, and anosmia. - Respiratory: Reports a productive coug h with foul-tasting phlegm and dyspnea on exertion and after coughing fits; denies hemoptysis. - Gastrointestinal: Reports nausea secon simon to the taste of phlegm; reports slightly decreased fluid intake. - Skin: Reports a sensation of dry, burn ing skin on the face; denies rash. All systems reviewed and are unremarkable except as noted in HPI Physical Exam General: Cooperative, healthy appearing, comfortable and no acute distress Orientation/consciousness: Patient oriented x3 Limitations: No limitations Head: Normal to inspection Ears: Hearing grossly normal bilaterally, external ears normal, EAC's normal bilaterally and TM's normal bilaterally Nose: Stuffy nose, runny nose present, unable to breathe or smell anything Face and sinus: normal appearing, sinuses TTP maxillary bilateral Mouth: Normal oral and palatal mucosa present and moist mucous membranes Throat: Tonsils normal, no exudates, uvula midline, posterior oropharynx e rythema Eyes: Tearing and watering, thick and goopy sensation, blurry vision Neck: Normal visual inspection, full ROM Respiratory: Clear to auscultation bilaterally. Normal respiratory effort, able to speak in complete sentences, actively coughing, no respiratory distress, not tachypneic, no tripod positioning and no use of accessory muscles. Cardiovascular: Regular rate and rhythm. Normal S1 and S2 Skin: No rashes or lesions noted Neuro: Patient oriented x3 Extremities: Normal to inspection and Yes no clubbing, cyanosis or edema [facility] [place] Medical History Dysmenorrhea Encounter for well woman exam with routine gynecological exam Cluster headache syndrome MARY KATE (generalized anxiety disorder) ADHD (attention deficit hyperactivity disorder), inattentive type Bipolar 2 disorder PMDD (premenstrual dysphoric disorder) Endometriosis Alcohol use disorder, moderate, dependence Shortness of breath Alcohol abuse COVID-19 Surgical History Hx of tubal ligation S/P endometrial ablation Hx of section Hx of shoulder surgery Hx of right knee surgery Hx of left knee surgery Family History Mother Cervical ca Father Diabetes Kidney disease Sleep apnea Thyroid disease Family/Other History of breast cancer Other Mental health disorder Substance use disorder Social History Household Members: Spouse Housing: House Do you presently have visiting nurse or other home services: No Alcohol intake: former Patient Tobacco Use Status: Never used Tobacco e-Cigarette/Vaping Use: Never Used Second Hand Smoke Exposure: No service: No Current occupational status: employed 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 Cognitive needs: No Hearing needs: No Vision needs: Yes (Glasses) Review of Systems Const All systems reviewed & are unremarkable except as noted in HPI and below Physical Exam Vital Signs: Last Vital Signs Temp 98.0 F 04/16/25 08:54 Pulse 103 H 04/16/25 08:54 BP 132/80 04/16/25 08:54 Pulse Ox 98 04/16/25 08:54 BMI result Body Mass Index 38.4 Results AMB Rapid Strep AMB Rapid Strep Negative Last Edit by Nam Harmon CMA on 04/16/25 09 :04 Results Reviewed Results Reviewed: Laboratory Last Values Strep Scn [facility] Negative 04/16/25 09:03 Assessment & Plan Assessment & Plan (1) URI, acute: Code(s): J06.9 - Acute upper respiratory infection, unspecified Plan: Plan Patient was informed and verbally consented to the use of an ambient scribe for clinic note documentation during this visit. Acute Upper Respiratory Infection - VSS, pt well appearing and PE unremarkable. Rapid strep is negative. - The patient's presentation is concerning for a secondary illness given the prolonged duration and fluctuating nature of symptoms, which did not improve with prior antibiotic treatment. - Performed a respiratory panel to test for flu, COVID-19, and RSV. - If the viral panel is negative, a prescription for Augmentin will be sent to treat for a potential bacterial infection not covered by the previous Z-Uday. - For symptomatic relief, recommend an [id number] medication with a decongestant and antihistamine, such as generic Tracey-D, for up to seven days. - Advised increased fluid intake and rest. - Plan to prescribe Tessalon Perles 200 mg as a cough suppressant. - An albuterol inhaler will be prescribed for use as needed every 4-6 hours for shortness of breath or after coughing to relieve bronchial spasms. 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 Orders: Orders SARS-CoV2/FLU/RSV Today R09.89 - Other specified symptoms and signs involving the circulatory and respiratory systems AMB Rapid Strep Screen Today Z13.9 - Encounter for screening, unspecified Medications: New albuterol sulfate 90 mcg/actuation 2 puffs inhalation Q6H PRN 8.5 grams 0RF shortness of breath or wheezing or cough benzonatate 200 mg PO BEDTIME PRN 10 caps 0RF cough Coding Level of Care Code Est Pt Level 3 (77049) Diagnoses URI, acute J06.9
== END 2025-04-16 09:20 | disposition home or self-care (01) ==
PROVIDERS: Visit Provider Physician Assistant
DX: Z13.9 Encounter for screening, unspecified (principal); J06.9 Acute upper respiratory infection, unspecified